=== PATIENT | female | born 1995 | race Two or more races ===

== ENCOUNTER 2025-01-10 05:54 | Inpatient (IN) | payer BC, OTHER, SELFPAY ==
--- OUTSIDE RECORDS SUMMARY | 2025-01-09 15:28 | XMS_ITS | Encounter Summary ---
Author Organization [facility] Address 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 Name Role Phone Unavailable Primary Care Provider Unavailabl e Reason for Referral * Radiology Services (Routine) - Closed Specialty Diagnoses / Procedures Referred By Contac t Referred To Contact Diagnoses Type 2 diabetes mellitus complicating , antepartum Procedures US OB LIMITED + NST MS NONSTRESS TEST CHG US UTERUS LIMITED 1/> FETUSES Megan Allan MD [address], [place] [address] Phone: tel: fax: [facility] Maternal and Ground Floor S [facility] [address] [place] [address] Phone: tel: fax: Referral ID Status Reason Start Date Expiration Date Visits Re quested Visits Authorized [id number] Closed 11/27/2024 12/28/2025 1 1 Reason for Visit * Radiology Services (Routine) - Closed Specialty Diagnoses / Procedures Referred By Contac t Referred To Contact Diagnoses Type 2 diabetes mellitus complicating , antepartum Procedures US OB LIMITED + NST MS NONSTRESS TEST CHG US UTERUS LIMITED 1/> FETUSES Megan Allan MD [address], [place] [address] Phone: tel: fax: [facility] [address] [address] [place] [address] Phone: tel: fax: Referral ID Status Reason Start Date Expiration Date Visits Re quested Visits Authorized [id number] Closed 11/27/2024 12/28/2025 1 1 Encounter Details Date Type Department Care Team (Latest Contact Info) Description 01/09/2025 3:28 PM CDT - 01/09/2025 11:59 PM CDT Hospital Encounter [facility] [address] [place] [address] [place] [address] Megan Allan MD [address] [facility] [address] [place] [address] Arrived Discharge Disposition: Home or Self Care Social History Tobacco Use Types Packs/Day Years Used Date Smoking Tobacco: Never Estimated Date of Delivery Comme nts Yes 01/29/2025 Based on Other B asis Sex and Gender Information Value Date Recorded Sex Assigned at Not on file Legal Sex Female 8:09 AM CDT Gender Identity Not on file Sexual Orientation Not on file documented as of this encounter Medications at Time of Discharge insulin lispro (HumaLOG KwikPen Insulin) 100 unit/mL pen syringeIndicatio ns:Pre-existing type 2 diabetes mellitus during in third trimester Inject 44 Units by subcutaneous injection daily before breakfast AND 80 Units daily before lunch AND 102 Units daily before supper. 60 mL 2 01/09/2025 insulin glargine U-300 conc (Toujeo Max U-300 SoloStar) 300 unit/mL (3 mL) Insulin PenIndications:P re-existing type 2 diabetes mellitus during in third trimester Inject 120 Units by subcutaneous injection daily at bedtime. 12 mL 2 01/09/2025 metFORMIN (GLUCOPHAGE XR) 500 mg Extended Release 24 hour tabletIndication s:Pre-existing type 2 diabetes mellitus during in third trimester Take 1 Tablet (500 mg) by mouth 2 times daily with meals. Increase to 2 tabs po BID in 3-5 days 120 Tablet 3 11/06/2024 Insulin [place], Disposable, (BD Christina 2nd Gen Pen Needle) 32 gauge x 5/32 NeedleIndication s:Pre-existing type 2 diabetes mellitus during , antepartum Use 4 pen needles per day with insulin injection 200 Each 6 08/30/2024 vit/iron fum/folic ac ( 1+1 ORAL) aspirin (ECOTRIN EC) 81 mg Tablet, Delayed Release (E.C.)Indication s:Supervision of high risk in second trimester,Diabet es mellitus affecting in second trimester,Other obesity affecting in second trimester Take 2 Tablets (162 mg) by mouth daily. 60 Tablet 6 08/16/2024 Dexcom G7 Sensor DeviceIndication s:Pre-existing type 2 diabetes mellitus during , antepartum Change sensor every 10 days as directed 3 Each 9 07/29/2024 documented as of this encounter Plan of Treatment Upcoming Encounters Date Type Department Care Team (Late st Contact Info) Description 01/13/2025 2:45 PM CDT Appointment [facility] [address] [place] [address] Megan Allan MD [address], [place] [address] 01/16/2025 3:30 PM CDT Appointment [facility] [address] [place] [phone] Megan Allan MD [address], [place] [address] 01/20/2025 3:30 PM CDT Appointment [facility] [address] [address] [place] [phone] Megan Allan MD [address], [place] [address] 01/23/2025 2:45 PM CDT Appointment [facility] [address] [place] [address] [place] [address] Isha Reeder NP [address] [place] [address] 01/23/2025 3:30 PM CDT Hospital Encounter [facility] [address] [place] [address] Megan Allan MD [address] [place] [facility] [place] [address] documented as of this encounter Procedures Procedure Name Priority Date/Time Associated Diagnosis Comments US OB LIMITED + NST Routine 01/09/2025 4:40 PM CDT Type 2 diabetes mellitus complicating , antepartum documented in this encounter Results * US OB LIMITED + NST (01/09/2025 4:40 PM CDT) Anatomical Region Laterality Modality Pelvis Ultrasound 01/09/2025 3:48 PM CDT Narrative 01/09/2025 4:44 PM CDT MODIFIED [facility] STUDY ----- Pat. Name: DEBORAH MARTIN Study Date: 01/09/2025 3:48pm Pat. NO: [id number] Referring MD: LUCIANO FRANCISCO MD Site: [facility] Continuing Education Specialist: : 1995 Age: 29 ----- INDICATION ----- Maternal Obesity (BMI>40) Complicating Pre-existing Type 2 Diabetes Mellitus CODING ----- Diagnoses Z3A.37: Weeks of gestation O99.213: Obesity complicating O24.113: Pre-existing type 2 diabetes mellitus, in Procedures 95977: NST/ monitoring 96145: Limited 1 or more - MALI, FHR, position (modifier 59 for MBPP) HISTORY ----- OB History 1 MATERNAL ASSESSMENT ----- Physical Exam Blood pressure 129/56 mmHg. Heart rate 104 bpm METHOD ----- EFM, Transabdominal ultrasound examination. View: Good view ----- Solares . Number of fetuses: 1 DATING ----- GA by prior assessment 37 w + 1 d GEORGE by prior assessment: 01/29/2025 Method of dating: Restore dating from previous exam Assigned: based on stated GEORGE, selected on 12/23/2024 Assigned GA 37 w + 1 d Assigned GEORGE: 01/29/2025 GENERAL EVALUATION ----- Cardiac activity present. movements: visualized. Presentation: cephalic NON STRESS TEST ----- NST interpretation: reactive. Test duration 45 min. Baseline FHR 120 bpm. Baseline variability: moderate. Accelerations: Present. Decelerations: absent. Uterine activity: present, irritability AMNIOTIC FLUID ASSESSMENT ----- Amount of AF: normal amount MVP 6.9 cm. MALI 13.1 cm. Q1 6.9 cm, Q2 0.0 cm, Q3 2.4 cm, Q4 3.8 cm COMMENT ----- Nurses Notes: Patient reports positive movement and no bleeding, or leaking of fluid. Pt. reports irregular ctx. MIL scheduled tomorrow. IMPRESSION ----- DEBORAH is here for follow up testing for T2DM and BMI. 1. Solares intrauterine with a gestational age of 37w 1d, based on the reported clinical dates. 2. cephalic presentation. 3. Amniotic fluid volume is normal for gestational age (DVP: 6.9 cm MALI: 13.1 cm). 4. NST reactive and reassuring for gestational age. Recommendations: - Induction scheduled for 01/10/25. No further testing indicated. Thank you for allowing us to participate in the care of this patient. Procedure Note Albina Brito MD - 01/09/2025 MODIFIED BPP STUDY ----- Pat. Name:DEBORAH MARTINChucho Date:01/09/2025 3:48pm Pat. NO: [id number] MD:LUCIANO FRANCISCO [facility]1995Age:29 ----- INDICATION ----- Maternal Obesity (BMI>40) Complicating Pre-existing Type 2 Diabetes Mellitus CODING ----- Diagnoses Z3A.37: Weeks of gestation O99.213: Obesity complicating O24.113: Pre-existing type 2 diabetes mellitus, inpregnancy Procedures 24123: NST/ monitoring 54403: Limited 1 or more - MALI, FHR, position(modifier 59 for MBPP) HISTORY ----- OB History 1 MATERNAL ASSESSMENT ----- Physical Exam Blood pressure 129/56 mmHg. Heart rate 104 bpm METHOD ----- EFM, Transabdominal ultrasound examination. View: Good view ----- Solares . Number of fetuses: 1 DATING ----- GA by prior [id number] w + 1 d GEORGE by prior assessment:01/29/2025 Method of dating:Restore dating from previous exam Assigned:based on stated GEORGE, selected on 12/23/2024 Assigned GA37 w + 1 d Assigned GEORGE:01/29/2025 GENERAL EVALUATION ----- Cardiac activity present. movements: visualized. Presentation:cephalic NON STRESS TEST ----- NST interpretation: reactive. Test duration 45 min. Baseline FHR 120 bpm.Baseline variability: moderate. Accelerations: Present. Decelerations: absent. Uterine activity: present, irritability AMNIOTIC FLUID ASSESSMENT ----- Amount of AF: normal amount MVP 6.9 cm. MALI 13.1 cm. Q1 6.9 cm, Q2 0.0 cm, Q3 2.4 cm, Q4 3.8 cm COMMENT ----- Nurses Notes: Patient reports positive movement and no bleeding, orleaking of fluid. Pt. reports irregular ctx. MIL scheduled tomorrow. IMPRESSION ----- DEBORAH is here for follow up testing for T2DM and BMI. 1. Solares intrauterine with a gestational age of 37w 1d,based on the reported clinical dates. 2. cephalic presentation. 3. Amniotic fluid volume is normal for gestational age (DVP: 6.9 cm MALI:13.1 cm). 4. NST reactive and reassuring for gestational age. Recommendations: - Induction scheduled for 01/10/25. No further testingindicated. Thank you for allowing us to participate in the care of this patient. us Megan Allan MD ORDERABLES Final Result documented in this encounter Visit Diagnoses Diagnosis Type 2 diabetes mellitus complicating , antepartum Diabetes mellitus, antepartum documented in this encounter
[2025-01-10] VITALS (225 sets, daily range): BP systolic 101–146; BP diastolic 49–104; PULSE 72–126; TEMP 36.1–36.4; O2SAT 96–100; BMI 47.2
--- OUTSIDE RECORDS SUMMARY | 2025-01-10 06:03 | XMS_ITS | Encounter Summary ---
Author Organization [facility] Address 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 Proof Press Operator Name Role Phone Unavailable Primary Care Provider Unavailabl e Reason for Visit * Reason Comments Diabetes Encounter Details Date Type Department Care Team (Late st Contact Info) Description 01/09/2025 Chart Note [facility] Maternal and Medicine - Medical [place] [facility] [address] [place] [address] Afia Harrington, RD [address] [place] [address] Diabetes Social History Tobacco Use Types Packs/Day Years Used Date Smoking Tobacco: Never Estimated Date of Delivery Comme nts Yes 01/29/2025 Based on Other B asis Sex and Gender Information Value Date Recorded Sex Assigned at Not on file Legal Sex Female 8:09 AM CDT Gender Identity Not on file Sexual Orientation Not on file documented as of this encounter Progress Notes * Afia Harrington, RD - 01/09/2025 11:40 AM CDT Images from the original note were not included. [facility] Maternal Medicine Diabetes Log Review Gestational age: 36w2d Type of DM: DM2 Current regimen: Toujeo 110U qHS Humalog / Metformin 1000 mg BID Comments: Logs reviewed. Fasting levels elevated the past 2 days. Pre and postprandials elevated with lunch and dinner. Breakfast well controlled. recommendation approved by SLOAN Pabon during visit on 12/27. Pt scheduled for IOL on 01/10. Next appointment with MFM: None d/t late GA POST - Recommend continuation of Metformin 1000mg BID. Toujeo 20U QHS. Follow up with PCP 1-2months post delivery for management. Recommendations: Increase Toujeo to 120u qHS (10% increase) Increase Humalog 44/80/102 (10% increases) Continue Metformin 1000 mg BID Review logs weekly and prn Afia Harrington RD [facility] Maternal Medicine Initial Visit: 08/16/24 Last Log Billed (either BP or BG) (CGM to bill monthly; others every 7 days): 12/05 (Cannot bill until 7 days after an initial consult with MD or MARIO) OK to bill: [facility] billing, MFM provider not to bill I spent 7 minutes reviewing this log and creating this therapy plan. MFM Nurse Practitioner Attestation: Log reviewed. Agree with above recommendations. No additional changes at this time. Isha Reeder NP [facility] Maternal Medicine documented in this encounter Plan of Treatment Upcoming Encounters Date Type Department Care Team (Late st Contact Info) Description 01/13/2025 2:45 PM CDT Appointment [facility] and Ground Floor [address] [address] [place] [address] Mgean Allan MD [address] [place] [address] 01/16/2025 3:30 PM CDT Appointment [facility] [address] [place] [address] Megan Allan MD [address] [place] [address] 01/20/2025 3:30 PM CDT Appointment [facility] [address] [place] [address] Megan Allan MD [address] [facility] [place] [address] 01/23/2025 2:45 PM CDT Appointment [facility] S [facility] [address] [place] [address] Isha Reeder NP [address] [facility] [place] [address] 01/23/2025 3:30 PM CDT Hospital Encounter [facility] [address] [place] [phone] Megan Allan MD [address] [facility] [place] [address] documented as of this encounter Visit Diagnoses Diagnosis Pre-existing type 2 diabetes mellitus during in third trimester- Primary documented in this encounter
--- OUTSIDE RECORDS SUMMARY | 2025-01-10 06:03 | XMS_ITS | Clinical Summary ---
Author Organization [facility] Address [address] [place] [address] Phone Care Team Providers Care Pharmacy Technician Assistant Name Role Phone Unavailable Primary Care Provider Unavailabl e Allergies No known active allergies Medications Dexcom G7 Sensor DeviceIndicat ions:Pre-exis ting type 2 diabetes mellitus during , antepartum Change sensor every 10 days as directed 3 Each 9 07/30/19 25 Active vit/iron fum/folic ac ( 1+1 ORAL) Active aspirin (ECOTRIN EC) 81 mg Tablet, Delayed Release (E.C.)Indicat ions:Supervis ion of high risk in second trimester,Radha betes mellitus affecting in second trimester,Oth er obesity affecting in second trimester Take 2 Tablets (162 mg) by mouth daily. 60 Tablet 6 08/17/19 25 Active Insulin Sealy, Disposable, (BD Christina 2nd Gen Pen Needle) 32 gauge x 5/32 NeedleIndicat ions:Pre-exis ting type 2 diabetes mellitus during , antepartum Use 4 pen needles per day with insulin injection 200 Each 6 08/31/19 25 Active metFORMIN (GLUCOPHAGE XR) 500 mg Extended Release 24 hour tabletIndicat ions:Pre-exis ting type 2 diabetes mellitus during in third trimester Take 1 Tablet (500 mg) by mouth 2 times daily with meals. Increase to 2 tabs po BID in 3-5 days 120 Tablet 3 11/07/19 25 Active insulin lispro (HumaLOG KwikPen Insulin) 100 unit/mL pen syringeIndica tions:Pre-exi sting type 2 diabetes mellitus during in third trimester Inject 44 Units by subcutaneous injection daily before breakfast AND 80 Units daily before lunch AND 102 Units daily before supper. 60 mL 2 01/10/20 25 Active insulin glargine U-300 conc (Toujeo Max U-300 SoloStar) 300 unit/mL (3 mL) Insulin PenIndication s:Pre-existin g type 2 diabetes mellitus during in third trimester Inject 120 Units by subcutaneous injection daily at bedtime. 12 mL 2 01/10/20 25 Active insulin glargine U-300 conc (Toujeo Max U-300 SoloStar) 300 unit/mL (3 mL) Insulin PenIndication s:Pre-existin g type 2 diabetes mellitus during in third trimester Inject 80 Units by subcutaneous injection daily at bedtime. 6 mL 4 11/15/19 25 025 Discontinued insulin lispro (HumaLOG KwikPen Insulin) 100 unit/mL pen syringeIndica tions:Pre-exi sting type 2 diabetes mellitus during in third trimester Inject 30 Units by subcutaneous injection daily before breakfast AND 54 Units daily before lunch AND 66 Units daily before supper. 45 mL 3 11/30/19 25 025 Discontinued insulin lispro (HumaLOG KwikPen Insulin) 100 unit/mL pen syringeIndica tions:Pre-exi sting type 2 diabetes mellitus during in third trimester Inject 28 Units by subcutaneous injection daily before breakfast AND 56 Units daily before lunch AND 68 Units daily before supper. 45 mL 12/13/19 25 025 Discontinued insulin glargine U-300 conc (Toujeo Max U-300 SoloStar) 300 unit/mL (3 mL) Insulin PenIndication s:Pre-existin g type 2 diabetes mellitus during in third trimester Inject 84 Units by subcutaneous injection daily at bedtime. 12 mL 2 12/21/19 25 025 Discontinued(R eorder) insulin lispro (HumaLOG KwikPen Insulin) 100 unit/mL pen syringeIndica tions:Pre-exi sting type 2 diabetes mellitus during in third trimester Inject 34 Units by subcutaneous injection daily before breakfast AND 60 Units daily before lunch AND 78 Units daily before supper. 60 mL 2 12/21/19 25 025 Discontinued(R eorder) insulin lispro (HumaLOG KwikPen Insulin) 100 unit/mL pen syringeIndica tions:Pre-exi sting type 2 diabetes mellitus during in third trimester Inject 40 Units by subcutaneous injection daily before breakfast AND 66 Units daily before lunch AND 86 Units daily before supper. 60 mL 2 12/28/19 25 025 Discontinued insulin glargine U-300 conc (Toujeo Max U-300 SoloStar) 300 unit/mL (3 mL) Insulin PenIndication s:Pre-existin g type 2 diabetes mellitus during in third trimester Inject 100 Units by subcutaneous injection daily at bedtime. 12 mL 2 12/28/19 25 025 Discontinued insulin lispro (HumaLOG KwikPen Insulin) 100 unit/mL pen syringeIndica tions:Pre-exi sting type 2 diabetes mellitus during in third trimester Inject 44 Units by subcutaneous injection daily before breakfast AND 72 Units daily before lunch AND 94 Units daily before supper. 60 mL 2 01/04/20 25 025 Discontinued Active Problems Problem Noted Date Diagnosed Date Class 3 obesity 12/27/2024 Pre-existing type 2 diabetes mellitus during in third trimester 11/06/2024 Pre-existing type 2 diabetes mellitus in in second trimester 09/23/2024 Diabetes mellitus 08/16/2024 Overview (08/16/2024): NPH at night - 26u Diabetes mellitus affecting in second trimester 08/16/2024 Obesity complicating 08/16/2024 Supervision of high risk in [facility] 07/31/2024 Estimated Date of Delivery Comme nts Yes 01/29/2025 Based on Other B asis Encounters Date Type Department Care Team Description 01/09/2025 3:28 PM CDT - 01/09/2025 11:59 PM CDT Hospital Encounter [facility] [address] [place] [address] [place] [address] Megan Allan MD Arrived Discharge Disposition: Home or Self Care 01/09/2025 Chart Note [facility] - [facility] [place] [facility] [address] [place] [phone] Diabetes 01/06/2025 3:26 PM CDT - 01/06/2025 11:59 PM CDT [facility] [place] [address] [place] [phone] Megan Allan MD Arrived Discharge Disposition: Home or Self Care 01/03/2025 Chart Note [facility] - [facility] [place] [facility] [address] [place] [address] Diabetes 01/03/2025 Chart Note [facility] - [facility] [place] [facility] [address] [place] [address] Isha Reeder NP Erroneous encounter-disregard 01/02/2025 3:41 PM CDT - 01/02/2025 11:59 PM CDT Hospital Encounter [facility] [address] [place] [address] [place] [phone] Megan Allan MD Discharge Disposition: Home or Self Care 12/31/2024 External Device Data STL ABSTRACTION Provider, Abstract 12/30/2024 3:40 PM CDT - 12/30/2024 11:59 PM CDT Hospital Encounter [facility] [address] [place] [address] [place] [address] Megan Allan MD Discharge Disposition: Home or Self Care 12/27/2024 9:30 AM CDT visit [facility] [address] [place] [phone] Isha Reeder NP Pre-existing type 2 diabetes mellitus during in third trimester (Primary Dx); Class 3 obesity; 35 weeks gestation of 12/27/2024 Chart Note [facility] [address] [place] [address] Isha Reeder NP Diabetes 12/26/2024 2:50 PM CDT - 12/26/2024 11:59 PM CDT [facility] [address] [place] [address] [place] [phone] Matt Landin MD Discharge Disposition: Home or Self Care 12/23/2024 2:50 PM CDT - 12/23/2024 11:59 PM CDT [facility] [address] [place] [address] [place] [phone] Megan Allan MD Discharge Disposition: Home or Self Care 12/23/2024 2:49 PM CDT - 12/23/2024 11:59 PM CDT [facility] [address] [place] [address] [place] [address] Matt Landin MD Discharge Disposition: Home or Self Care 12/20/2024 Chart Note [facility] - [facility] [place] [facility] [address] [place] [address] Isha Reeder NP Gestational Diabetes 12/19/2024 2:51 PM CDT - 12/19/2024 11:59 PM CDT [facility] [address] [place] [address] [place] [phone] Matt Landin MD Discharge Disposition: Home or Self Care 12/17/2024 2:08 PM CDT - 12/17/2024 11:59 PM CDT [facility] [address] [place] [address] [place] [address] Matt Landin MD Discharge Disposition: Home or Self Care 12/17/2024 External Device Data STL ABSTRACTION Provider, Abstract 12/12/2024 3:07 PM CDT - 12/12/2024 11:59 PM CDT [facility] [address] [place] [address] [place] [phone] Matt Landin MD Discharge Disposition: Home or Self Care 12/12/2024 Orders Only [facility] - [facility] [place] [facility] [address] [place] [phone] Albina Davenport MD Pre-existing type 2 diabetes mellitus during , antepartum (Primary Dx) 12/12/2024 Chart Note [facility] - [facility] [place] [facility] [address] [place] [address] Isha Reeder NP Diabetes 12/09/2024 3:05 PM CDT - 12/09/2024 11:59 PM CDT Hospital Encounter [facility] [address] [place] [address] [place] [address] Matt Landin MD Discharge Disposition: Home or Self Care 12/06/2024 9:00 AM CDT - 12/06/2024 11:59 PM CDT Hospital Encounter [facility] [address] [place] [address] [place] [address] Matt Landin MD Discharge Disposition: Home or Self Care 12/05/2024 Abstract [facility] - [facility] [place] [facility] [address] [place] [address] Arlene Haley, RD 12/05/2024 Chart Note [facility] - [facility] [place] [facility] [address] [place] [address] Matt Landin MD Diabetes 12/04/2024 External Device Data STL ABSTRACTION Provider, Abstract 11/29/2024 8:45 AM CDT visit [facility] [address] [place] [address] Isha Reeder NP Pre-existing type 2 diabetes mellitus during in third trimester (Primary Dx); Obesity affecting in third trimester, unspecified obesity type; 31 weeks gestation of 11/29/2024 Chart Note [facility] [address] [place] [address] Isha Reeder NP Diabetes 11/27/2024 3:00 PM CDT - 11/27/2024 11:59 PM CDT Hospital Encounter [facility] S [facility] [address] [place] [phone] Matt Landin MD Discharge Disposition: Home or Self Care 11/26/2024 External Device Data STL ABSTRACTION Provider, Abstract 11/21/2024 Chart Note [facility] [address] [place] [address] Agustin Wu MD Diabetes 11/14/2024 Chart Note [facility] - [facility] [place] [facility] [address] [place] [address] Isha Reeder NP Diabetes 11/06/2024 3:30 PM CDT visit [facility] [address] [place] [address] Isha Reeder NP Obesity affecting in third trimester, unspecified obesity type (Primary Dx); Pre-existing type 2 diabetes mellitus during in third trimester; 28 weeks gestation of 11/06/2024 Chart Note [facility] [address] [place] [address] Isha Reeder NP Diabetes 10/31/2024 Results Follow-Up [facility] [place] [facility] [address] [place] [address] Angeles Prieto NP CBC WITH DIFFERENTIAL, COMPREHENSIVE METABOLIC PANEL, TSH REFLEXIVE, PROTEIN , RANDOM URINE 10/30/2024 3:00 PM CDT - 10/30/2024 11:59 PM CDT Hospital Encounter [facility] S [facility] [address] [facility] [place] [phone] Harlan Brumfield MD Discharge Disposition: Home or Self Care 10/30/2024 External Device Data STL ABSTRACTION Provider, Abstract 10/30/2024 Chart Note [facility] - [facility] [place] [facility] [address] [place] [phone] Lawanda Gomez MD Diabetes 10/29/2024 External Device Data STL ABSTRACTION Provider, Abstract 10/24/2024 Chart Note [facility] [address] [place] [address] Isha Reeder NP Diabetes 10/17/2024 Abstract [facility] [place] [address] [place] [address] Matt Landin MD 10/17/2024 Chart Note [facility] [place] [facility] [address] [place] [phone] Harlan Brumfield MD Diabetes 10/15/2024 External Device Data STL ABSTRACTION Provider, Abstract from Last 3 Months Social History Tobacco Use Types Packs/Day Years Used Date Smoking Tobacco: Never Tobacco Cessation:Counseling Given: Not Answered Estimated Date of Delivery Comme nts Yes 01/29/2025 Based on Other B asis Sex and Gender Information Value Date Recorded Sex Assigned at Not on file Legal Sex Female 8:09 AM CDT Gender Identity Not on file Sexual Orientation Not on file Last Filed Vital Signs Vital Sign Reading Time Taken Comments Blood Pressure 104/74 12/27/2024 9:32 AM CDT Pulse 93 12/27/2024 9:32 AM CDT Temperature - - Respiratory Rate 16 07/30/2024 3:18 PM CDT Oxygen Saturation 96% 12/27/2024 9:32 AM CDT Inhaled Oxygen Concentration - - Weight 113.4 kg (250 lb) 12/27/2024 9:32 AM CDT Height 158.8 cm (5' 2.5) 12/27/2024 9:32 AM CDT Body Mass Index 45 12/27/2024 9:32 AM CDT Plan of Treatment Upcoming Encounters Date Type Department Care Team (Late st Contact Info) Description 01/13/2025 2:45 PM CDT [facility]ment [facility] [address] [place] [address] [address] [place] [phone] Megan Allan MD [address] [address] [address] 01/16/2025 3:30 PM CDT [facility]ment [facility] [address] [address] [place] [address] Megan Allan MD [address] [place] [address] 01/20/2025 3:30 PM CDT [facility]ointment [facility] [address] [place] [phone] Megan lAlan MD [address] [facility] [address] [address] 01/23/2025 2:45 PM CDT Appointment [facility] [address] [place] [address] Isha Reeder NP [address] [facility] [address] [phone] 01/23/2025 3:30 PM CDT [facility] [address] [place] [address] Megan Allan MD [address] [place] [address] Health Maintenance Due Date Last Done Comments DIABETES ANNUAL FOOT EXAM 10/21/2015 DIABETES ANNUAL RETINAL EXAM 10/21/2015 DIABETES MICROALBUMIN ANNUAL SCREEN 10/21/2015 LDL CHOLESTEROL ANNUAL 10/21/2015 DTAP/TDAP/TD VACCINES (1 - Tdap) 2016 HEPATITIS B VACCINES (1 of 3 - 19+ 3-dose series) 09/2016 HPV/Cotest (21-29) 2018 HPV VACCINES (1 - 3-dose SCDM series) 2024 DIABETES HBA1C Q 6 MONTHS 01/08/2025 07/08/2024 CERVICAL CANCER SCREENING 05/29/2027 PAP SMEAR 05/29/2027 05/29/2024 INFLUENZA VACCINE Completed 01/03/2025 RSV VACCINE (60+ or ) (No Doses Required) Comp leted Procedures Procedure Name Priority Date/Time Associated Diagnosis Comments OB LIMITED + NST Routine 01/09/2025 4 :40 PM CDT Type 2 diabetes mellitus complicating , antepartum OB LIMITED + NST Routine 01/08/2025 7 :24 AM CDT Body mass index (BMI) 40.0-44.9, adult (CMS/HCC) OB LIMITED + NST Routine 01/06/2025 4 :16 PM CDT Type 2 diabetes mellitus complicating , antepartum US OB LIMITED + NST Routine 01/02/2025 4 :38 PM CDT Type 2 diabetes mellitus complicating , antepartum US OB LIMITED + NST Routine 12/30/2024 4 :34 PM CDT Type 2 diabetes mellitus complicating , antepartum OB LIMITED + NST Routine 12/26/2024 4 :06 PM CDT Body mass index (BMI) 40.0-44.9, adult (CMS/HCC) US OB FOLLOW UP PER FETUS Routine 12/23/2024 3:59 PM CDT Type 2 diabetes mellitus complicating , antepartum US MONITORING NST Routine 12/23/2024 3:15 PM CDT Body mass index (BMI) 40.0-44.9, adult (CMS/HCC) US OB LIMITED + NST Routine 12/19/2024 3 :58 PM CDT Body mass index (BMI) 40.0-44.9, adult (CMS/HCC) US OB LIMITED + NST Routine 12/17/2024 3 :13 PM CDT Body mass index (BMI) 40.0-44.9, adult (CMS/HCC) US OB LIMITED + NST Routine 12/12/2024 4 :08 PM CDT Body mass index (BMI) 40.0-44.9, adult (CMS/HCC) US OB LIMITED + NST Routine 12/06/2024 9 :51 AM CDT Body mass index (BMI) 40.0-44.9, adult (CMS/HCC) US OB FOLLOW UP PER FETUS Routine 11/27/2024 3:28 PM CDT Body mass index (BMI) 40.0-44.9, adult (CMS/HCC) PROTEIN , RANDOM URINE Routine 10/30/2024 4:21 PM CDT TSH REFLEXIVE Routine 10/30/2024 4:21 PM CDT Pre-existing type 2 diabetes mellitus in in second trimester COMPREHENSIVE METABOLIC PANEL Routine 10/30/2024 4:21 PM CDT Pre-existing type 2 diabetes mellitus in in second trimester CBC WITH DIFFERENTIAL Routine 10/30/2024 4:21 PM CDT Pre-existing type 2 diabetes mellitus in in second trimester US OB FOLLOW UP PER FETUS Routine 10/30/2024 3:36 PM CDT DM (diabetes mellitus), type 2 (CMS/HCC) Morbid obesity with body mass index of 40.0-49.9 (CMS/HCC) from Last 3 Months Results * US OB LIMITED + NST (01/09/2025 4:40 PM CDT) Only the most recent of10 resultswithin the time period is included. Anatomical Region Laterality Modality Pelvis Ultrasound 01/09/2025 3:48 PM CDT Narrative 01/09/2025 4:44 PM CDT MODIFIED BP STUDY ----- Pat. Name: DEBORAH QUINTERO Study Date: 01/09/2025 3:48pm Pat. 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 Name:Lucila QUINTERO Date:01/09/2025 3:48pm Pat. NO: [id number] MD:LUCIANO FRANCISCO [facility]1995Age:29 ----- INDICATION ----- Maternal Obesity (BMI>40) Complicating Pre-existing Type 2 Diabetes Mellitus CODING ----- Diagnoses Z3A.37: Weeks of gestation O99.213: Obesity complicating O24.113: Pre-existing type 2 diabetes mellitus, inpregnancy Procedures 98965: NST/ monitoring 86002: Limited 1 or more - MALI, FHR, position(modifier 59 for MBPP) HISTORY ----- OB History 1 MATERNAL ASSESSMENT ----- Physical Exam Blood pressure 129/56 mmHg. Heart rate 104 bpm METHOD ----- EFM, Transabdominal ultrasound examination. View: Good view ----- [place] . Number of fetuses: 1 DATING ----- GA by prior [id number] w + 1 d GEORGE by prior [...] of this patient. us Megan Allan MD US ORDERABLES Final Result * US OB FOLLOW UP PER FETUS (12/23/2024 3:59 PM CDT) Only the most recent of3 resultswithin the time period is included. Anatomical Region Laterality Modality Pelvis Ultrasound 12/23/2024 3:38 PM CDT Narrative 12/23/2024 3:56 PM CDT STL FOLLOW UP ----- Pat. Name: DEBORAH QUINTERO Study Date: 12/23/2024 3:38pm Pat. NO: [id number] Referring MD: LUCIANO FRANCISCO MD Site: [facility] Mud Mixer Helper: Anastasiia Montoya RDMS : 1995 Age: 29 ----- INDICATION ----- Maternal Obesity (BMI>40) Complicating Pre-existing Type 2 Diabetes Mellitus Screening Follow-Up CODING ----- Diagnoses Z3A.34: Weeks of gestation Z36.2: Encounter for other screening follow-up O99.213: Obesity complicating O24.113: Pre-existing type 2 diabetes mellitus, in Procedures 25436: Ultrasound, uterus, real time with image documentation, follow up, transabdominal approach per fetus HISTORY ----- OB History 1 MATERNAL ASSESSMENT ----- Physical Exam Weight 111 kg. BMI 44.63 kg/m METHOD ----- Transabdominal ultrasound examination ----- [place] . Number of fetuses: 1 DATING ----- GA by prior assessment 34 w + 5 d GEORGE by prior assessment: 01/29/2025 Ultrasound examination on: 12/23/2024 GA by U/S based upon: AC, BPD, EFW, Femur, HC GA by U/S 35 w + 2 d GEORGE by U/S: 01/25/2025 Method of dating: Restore dating from previous exam Assigned: based on stated GEORGE, selected on 12/23/2024 Assigned GA 34 w + 5 d Assigned GEORGE: 01/29/2025 BIOMETRY ----- BPD 89.7 mm 36w 2d 89% Hadlock OFD 110.3 mm 36w 5d 87% Mando HC 317.5 mm 35w 5d 40% Hadlock AC 324.5 mm 36w 3d 92% Hadlock Femur 63.1 mm 32w 4d 5% Hadlock HC / AC 0.98 19% Nicolaides Weight Calculation: EFW 2,653 g 35w 2d 64% Hadlock EFW (lb,oz) 5 lb 14 oz EFW by Hadlock ([id number]) Head / Face / Neck Biometry: Stockbroking Dealer 4.6 mm Extremities / Bony Struc Biometry: FL / BPD 0.70 FL / HC 0.20 FL / AC 0.19 GENERAL EVALUATION ----- Cardiac activity present. FHR 137 bpm. movements: present. Presentation: cephalic Placenta: Placental site: posterior Umbilical cord: Cord vessels: 3 vessel cord. Amniotic fluid: Amount of AF: normal amount. MVP 6.3 cm. MALI 19.5 cm. Q1 6.3 cm, Q2 3.6 cm, Q3 5.9 cm, Q4 3.8 cm ANATOMY ----- Heart / Thorax Cardiac rhythm: previously seen. The following structures appear normal: Head / Neck Cranium. Lateral ventricles. Choroid plexus. Midline falx. Cavum septi pellucidi. Heart / Thorax Diaphragm. Abdomen Stomach. Kidneys. Bladder. GROWTH OVERVIEW ----- Exam date GA BPD (mm) HC (mm) AC (mm) FL (mm) HL (mm) EFW (g) 09/13/2024 20w 2d 45.3 25% 171.4 18% 164.5 81% 30.3 14% 31.9 67% 352 52% 10/09/2024 24w 0d 57.4 28% 213.8 15% 202.2 68% 40.6 14% 652 42% 10/30/2024 27w 0d 66.8 36% 247.2 18% 233.2 62% 47.1 8% 994 33% 11/27/2024 31w 0d 80.2 76% 287.3 29% 279.9 77% 56.2 7% 1,729 46% 12/23/2024 34w 5d 89.7 89% 317.5 40% 324.5 92% 63.1 5% 2,653 64% COMMENT ----- Patient's name and date of were verified by the customer service rep prior to the exam IMPRESSION ----- [place] @ 34w 5d complicated by BMI and T2DM. - The biometry is consistent with dates with the EFW at the 64% percentile. - Amniotic fluid indices are within normal limits. - Limited anatomy is unremarkable. The patient had an NST following the ultrasound; please see separate report for details. A follow up is scheduled in 4 weeks to follow growth. Thank you for allowing us to participate in the care of this patient. Procedure Note Megan Allan MD - 12/23/2024 [facility] FOLLOW UP ----- Pat. Name:Lucila QUINTERO Date:12/23/2024 3:38pm Pat. NO: [id number] :LUCIANO FRANCISCO MD [facility]Anastasiia Montoya RDMS :1995Age:29 ----- INDICATION ----- Maternal Obesity (BMI>40) Complicating Pre-existing Type 2 Diabetes Mellitus Screening Follow-Up CODING ----- Diagnoses Z3A.34: Weeks of gestation Z36.2: Encounter for other screeningfollow-up O99.213: Obesity complicating O24.113: Pre-existing type 2 diabetes mellitus, inpregnancy Procedures 70063: Ultrasound, uterus, real time withimage documentation, follow up, transabdominal approach per fetus HISTORY ----- OB History 1 MATERNAL ASSESSMENT ----- Physical Exam Weight 111 kg. BMI 44.63 kg/m METHOD ----- Transabdominal ultrasound examination ----- [place] . Number of fetuses: 1 DATING ----- GA by prior w + 5 d GEORGE by prior assessment:01/29/2025 Ultrasound examination on:12/23/2024 GA by U/S based upon:AC, BPD, EFW, Femur, HC GA by U/S35 w + 2 d GEORGE by U/S:01/25/2025 Method of dating:Restore dating from previous exam Assigned:based on stated GEORGE, selected on 12/23/2024 Assigned GA34 w + 5 d Assigned GEORGE:01/29/2025 BIOMETRY ----- BPD 89.7 mm 36w 2d 89%Hadlock OFD 110.3 mm 36w 5d 87%Mando HC 317.5 mm 35w 5d 40%Hadlock AC 324.5 mm 36w 3d 92%Hadlock Femur 63.1 mm 32w 4d 5%Hadlock HC / AC 0.98 19%Nicolaides Weight Calculation: EFW 2,653 g 35w 2d64% Hadlock EFW (lb,oz) 5 lb 14 oz EFW by Hadlock ([id number]) Head / Face / Neck Biometry: Stockbroking Dealer 4.6mm Extremities / Bony Struc Biometry: FL / BPD 0.70 FL / HC 0.20 FL / AC 0.19 GENERAL EVALUATION ----- Cardiac activity present. FHR 137 bpm. movements: present.Presentation: cephalic Placenta: Placental site: posterior Umbilical cord: Cord vessels: 3 vessel cord. Amniotic fluid: Amount of AF: normal amount. MVP 6.3 cm. MALI 19.5 cm. Q16.3 cm, Q2 3.6 cm, Q3 5.9 cm, Q4 3.8 cm ANATOMY ----- Heart / Thorax Cardiac rhythm: previously seen. The following structures appear normal: Head / Neck Cranium. Lateral ventricles. Choroid plexus.Midline falx. Cavum septi pellucidi. Heart / Thorax Diaphragm. Abdomen Stomach. Kidneys. Bladder. GROWTH OVERVIEW ----- Exam date GA BPD (mm) HC (mm) AC (mm) FL(mm) HL (mm) EFW (g) 09/13/2024 20w 2d 45.3 25% 171.4 18% 164.5 81%30.3 14% 31.9 67% 352 52% 10/09/2024 24w 0d 57.4 28% 213.8 15% 202.2 68%40.6 14% 652 42% 10/30/2024 27w 0d 66.8 36% 247.2 18% 233.2 62%47.1 8% 994 33% 11/27/2024 31w 0d 80.2 76% 287.3 29% 279.9 77%56.2 7% 1,729 46% 12/23/2024 34w 5d 89.7 89% 317.5 40% 324.5 92%63.1 5% 2,653 64% COMMENT ----- Patient's name and date of were verified by the customer service rep prior tothe exam IMPRESSION ----- [place] @ 34w 5d complicated by BMI and T2DM. - The biometry is consistent with dates with the EFW at the 64%percentile. - Amniotic fluid indices are within normal limits. - Limited anatomy is unremarkable. The patient had an NST following the ultrasound; please see separatereport for details. A follow up is scheduled in 4 weeks to follow growth. Thank you for allowing us to participate in the care of this patient. us Megan Allan MD US ORDERABLES Final Result * US MONITORING NST (12/23/2024 3:15 PM CDT) Anatomical Region Laterality Modality Ultrasound 12/23/2024 3:06 PM CDT Narrative 12/23/2024 3:17 PM CDT [facility] NST ----- Pat. Name: DEBORAH QUINTERO Study Date: 12/23/2024 3:06pm Pat. 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 Heart rate 98 bpm METHOD ----- EFM ----- [place] . Number of fetuses: 1 DATING ----- Method of dating: based on stated GEORGE GA by prior assessment 34 w + 5 d GEORGE by prior assessment: 01/29/2025 Assigned: based on stated GEORGE, selected on 12/23/2024 Assigned GA 34 w + 5 d Assigned GEORGE: 01/29/2025 NON STRESS TEST ----- NST interpretation: reactive. Test duration 20 min. Baseline FHR 130 bpm. Baseline variability: moderate. Accelerations: Present. Decelerations: Not present. Uterine activity: absent COMMENT ----- Nursing notes: Patient reports positive movement with no bleeding, leaking or kinga. US after NST. IMPRESSION ----- Reactive NST. Procedure Note Megan Allan MD - 12/23/2024 [facility] NST ----- Pat. Name:Lucila QUINTERO Date:12/23/2024 3:06pm Pat. NO: [id number] :LUCIANO FRANCISCO MD Site:[facility] Castro[facility]: :1995Age:29 ----- INDICATION ----- Maternal Obesity (BMI>40) Complicating Pre-existing Type 2 Diabetes Mellitus CODING ----- Diagnoses Z3A.34: Weeks of gestation O24.113: Pre-existing type 2 diabetes mellitus, inpregnancy O99.213: Obesity complicating Z36.2: Encounter for other screeningfollow-up Procedures 83227: NST/ monitoring MATERNAL ASSESSMENT ----- Physical Exam Blood pressure 128/68 mmHg. Heart rate 98 bpm METHOD ----- EFM ----- [place] . Number of fetuses: 1 DATING ----- Method of dating:based on stated GEORGE GA by prior [id number] w + 5 d GEORGE by prior assessment:01/29/2025 Assigned:based on stated GEORGE, selected on 12/23/2024 Assigned GA34 w + 5 d Assigned GEORGE:01/29/2025 NON STRESS TEST ----- NST interpretation: reactive. Test duration 20 min. Baseline FHR 130 bpm.Baseline variability: moderate. Accelerations: Present. Decelerations: Not present. Uterine activity: absent COMMENT ----- Nursing notes: Patient reports positive movement with no bleeding,leaking or kinga. US after NST. IMPRESSION ----- Reactive NST. Matt Landin MD ORDERABLES Final Resu lt * TSH REFLEXIVE (10/30/2024 4:21 PM CDT) Pathologist [facility] TSH 2.22 mIU/L [facility] Comment: Reference Range > or = 20 Years 0.40-4.50 Ranges First trimester 0.26-2.66 Second trimester 0.55-2.73 Third trimester 0.43-2.91 Test Performed at: [facility] [address] [place] [address] Jennifer Dumont Blood 10/30/2024 4:21 PM CDT 10/30/2024 4:25 PM CDT Isha Jadeelian [place] CHEMISTRY ORDERABLES Final Re sult [facility] [phone] [facility] [address] [phone] * (ABNORMAL) CBC WITH DIFFERENTIAL (10/30/2024 4:21 PM CDT) WBC 12.7(H) 3.8 - 10.8 Thousand/ uL [facility] RBC 4.38 3.80 - 5.10 Million/u L [facility] HEMOGLOBIN 12.6 11.7 - 15.5 g/dL [facility] HEMATOCRIT 39.2 35.0 - 45.0 % [facility] MCV 89.5 80.0 - 100.0 fL [facility] MCH 28.8 27.0 - 33.0 pg [facility] MCHC 32.1 32.0 - 36.0 g/dL [facility] Comment: For adults, a slight decrease in the calculated MCHC value (in the range of 30 to 32 g/dL) is most likely not clinically significant; however, it should be interpreted with caution in correlation with other red cell parameters and the patient's clinical condition. RDW 12.7 11.0 - 15.0 % [facility] PLATELETS 325 140 - 400 Thousand/ uL [facility] MPV 10.3 7.5 - 12.5 fL [facility] NEUTROPHIL ABSOLUTE 8,598(H) 1,500 - 7,800 cells/uL [facility] LYMPHOCYTE ABSOLUTE 3,010 850 - 3,900 cells/uL [facility] MONOCYTE ABSOLUTE 864 200 - 950 cells/uL [facility] EOSINOPHIL ABSOLUTE 191 15 - 500 cells/uL [facility] BASOPHILS ABSOLUTE 38 0 - 200 cells/uL [facility] NEUTROPHIL 67.7 % [facility] LYMPHOCYTES 23.7 % [facility] MONOCYTE 6.8 % [facility] EOSINOPHILS 1.5 % [facility] BASOPHILS 0.3 % [facility] Comment: Test Performed at: [facility] [address] [address] Jennifer Thi Vo Blood 10/30/2024 4:21 PM CDT 10/30/2024 4:25 PM CDT Isha Reeder RISK ADVISOR HEMATOLOGY ORDERABLES Final R esult Performing Organization Address City/[facility]/ZIP Code Phone Number [facility] [phone] [place] [address] [place] [phone] * PROTEIN , RANDOM URINE (10/30/2024 4:21 PM CDT) CREATININE, URINE 117 20 - 275 mg/dL [facility] PROTEIN/CREATININE RATIO, URINE 111 24 - 184 mg/g creat [facility] PROTEIN/CREATININE RATIO, URINE 0.111 0.024 - 0.184 mg/mg creat [facility] PROTEIN TOTAL, URINE 13 5 - 24 mg/dL [facility] Comment: Test Performed at: [facility] [address] [place] [address] TheresaSandhyatammy Thi Vo 10/30/2024 4:21 PM CDT 10/30/2024 4:25 PM CDT Isha Reeder RISK ADVISOR URINE ORDERABLES Final Result Performing Organization Address City/[facility] Code Phone Number [facility] [phone] [place] [address] [place] [address] * (ABNORMAL) COMPREHENSIVE METABOLIC PANEL (10/30/2024 4:21 PM CDT) GLUCOSE 84 65 - 99 mg/dL [facility] Comment: Fasting reference interval BUN 7 7 - 25 mg/dL [facility] CREATININE 0.46(L) 0.50 - 0.96 mg/dL [facility] GFR 134 > OR = 60 mL/min/1. 73m2 [facility] BUN/CREAT RATIO 15 6 - 22 (calc) [facility] SODIUM 135 135 - 146 mmol/L [facility] POTASSIUM 4.2 3.5 - 5.3 mmol/L [facility] CHLORIDE 106 98 - 110 mmol/L [facility] CO2 24 20 - 32 mmol/L [facility] CALCIUM 9.3 8.6 - 10.2 mg/dL [facility] TOTAL PROTEIN 6.3 6.1 - 8.1 g/dL [facility] ALBUMIN 3.5(L) 3.6 - 5.1 g/dL [facility] GLOBULIN 2.8 1.9 - 3.7 g/dL (calc) [facility] ALBUMIN/GLOBULIN RATIO 1.3 1.0 - 2.5 (calc) [facility] BILIRUBIN TOTAL 0.3 0.2 - 1.2 mg/dL [facility] ALKALINE PHOSPHATASE 69 31 - 125 U/L [facility] AST 11 10 - 30 U/L [facility] ALT 13 6 - 29 U/L [facility] Comment: Test Performed at: [place] [address] [place] [address] Jennifer [facility] Blood 10/30/2024 4:21 PM CDT 10/30/2024 4:25 PM CDT Isha Reeder NP CHEMISTRY ORDERABLES Final Re sult [facility] [phone] [place] [address] [address] [phone] from Last 3 Months Insurance [facility] MEDICAID [facility] [id number]
[2025-01-10 07:00] LABS: Hematocrit 36.3 % (37.0-47.0); Hemoglobin 12.1 g/dL (12.0-15.0); Immature Granulocyte Percent A 0.7 % (0-0.5); Lymphocytes Absolute Auto 3.34 K/mm3 (0.9-3.2); Mean Corpuscular HGB Conc 33.3 g/dl (32-36); Mean Corpuscular Hemoglobin 27.7 pg (26-34); Mean Corpuscular Volume 83.1 fl (80-100); Nucleated Red Blood Cells Absolute Auto 0.000 K/mm3 (0.0-0.012); Nucleated Red Blood Cells Perc 0.0 % (0.0-0.2); Platelet Count Result 312 k/mm3 (150-375); Red Blood Count 4.37 M/mm3 (4.2-5.4); White Blood Count 13.7 K/mm3 (4.5-10.0)
--- NOTE | 2025-01-10 07:49 | WPDOBADMIT ---
Obstetrics - Admit Note Admission Note: record reviewed. No pertinent additions to the history and/or any subsequent changes in the physical findings that are not consistent with the expected course of the were found. Additions to the history and/or subsequent changes in the physical findings follow. admit for IOL, GDMA-2 anticipate vaginal delivery
[2025-01-10] MEDS: INSULIN ASPART (*BKC) 100 UNITS/ML 44 UNITS SUB-Q (07:57)
--- NOTE | 2025-01-10 08:07 | LDADM ---
This patient, Fannie Martin, was admitted to Labor/Delivery/Recovery 103 on 01/10/25 at 05:54. Plans for labor, pain management and were discussed with patient. Patient/family oriented to hospital policies and general routines including ID bracelet, bed and alarms, visiting hours, pain management, procedures, bathroom and other care routines, personal items, smoking policy, room service/diet and guest tray routines, infant security routines, and visiting hours. Patient/Family are encouraged to report perceived risks to care and to ask questions if they do not understand what they are told or what they should do. See OBIX for further documentation.
[2025-01-10 08:27] LABS: Syphilis IgG/IgM Antibody Non-Reactive (Nonreactive)
[2025-01-10] MEDS: LACTATED RINGERS 1,000 ML 125 ML IV CONT ×3 (11:28→20:26)
--- NOTE | 2025-01-10 12:49 | PM.OBPNLAB ---
Pain Control Date/time seen: 01/10/25 12:49 Comments: FHR category 1 SVE /-2 soft. chung bulb placed pt shayne well
[2025-01-10] MEDS: OXYTOCIN 30 UNITS/NS 500 ML 30 UNITS/500 ML BAG IV CONT (13:38)
[2025-01-10] MEDS: fentaNYL CITRATE INJ (*CRX) 100 MCG/2 ML VIAL 50 MCG IV PUSH (15:42)
--- NOTE | 2025-01-10 18:44 | PM.OBPNLAB ---
Pain Control Date/time seen: 01/10/25 18:44 Comments: SVE 3.5/60/-2 AROM large amount of clear, odorless fluid, IUPC placed discussed insulin with plan metformin at will hold long acting insulin for now GDM diet being followed during labor FHR category 1 contractions q 2-3 minutes
--- NOTE | 2025-01-10 19:49 | WPDANESEPPF ---
Anes - Initial Pre Proc Eval Date/Time: 01/10/25 19:49 Surgeon: Carlos Lewis MD Pre Op Diagnosis: IOL Patient Data Age: 29 Gender: F Height: 1.57 m Weight: 117 kg Last Vital Signs Temp 36.1 C L 01/10/25 17:51 Pulse 95 01/10/25 19:48 BP 120/65 01/10/25 19:48 Pulse Ox 98 01/10/25 19:44 O2 Del Method Room Air 01/10/25 08:06 Allergies Allergy/AdvReac Type Severity Reaction Status Date / Time No Known Allergies Allergy Mild Verified 12/28/24 15:45 Home Medications ?Medication ?Instructions ?Recorded ?Confirmed ?Type aspirin 81 mg capsule 162 mg PO DAILY 12/28/24 12/28/24 History insulin glargine U-300 conc 300 100 unit subcut HS 12/28/24 12/28/24 History unit/mL (1.5 mL) subcutaneous pen insulin lispro 100 unit/mL 1 sliding scale dose subcut 12/28/24 12/28/24 History subcutaneous pen (Humalog KwikPen USEASDIRECTD (U-100) Insulin) metformin 1,000 mg tablet 1,000 mg PO BID 12/28/24 12/28/24 History vit no.95-ferrous 1 tablet PO DAILY 12/28/24 12/28/24 History fumarate 28 mg-folic acid 800 mcg tablet () Laboratory Tests 01/10/25 01/10/25 01/10/25 06:25 07:01 09:12 WBC 13.7 H K/mm3 (4.5-10.0) RBC 4.37 M/mm3 (4.2-5.4) Hgb 12.1 g/dL (12.0-15.0) Hct 36.3 L % (37.0-47.0) MCV 83.1 fl (80-100) MCH 27.7 pg (26-34) MCHC 33.3 g/dl (32-36) RDW 14.1 % (11.5-14.5) Plt Count 312 k/mm3 (150-375) MPV 10.3 fl (7.4-10.4) Immature Gran % (Auto) 0.7 H % (0-0.5) Neut % (Auto) 67.0 % (45.5-73.1) Lymph % (Auto) 24.4 % (18.3-44.2) [place] % (Auto) 6.4 % (2.6-8.5) Eos % (Auto) 1.0 % (0-4.4) Baso % (Auto) 0.5 % (0.2-1.2) Lymph # (Auto) 3.34 H K/mm3 (0.9-3.2) [place] # (Auto) 0.9 H K/mm3 (0.1-0.6) Eos # (Auto) 0.1 K/mm3 (0-0.3) Baso # (Auto) 0.1 K/mm3 (0.0-0.1) Abs Immat Gran (auto) 0.09 H K/mm3 (0.00-0.031) Absolute Neuts (auto) 9.2 H K/mm3 (1.3-6.7) Absolute Nucleated RBC 0.000 K/mm3 (0.0-0.012) Nucleated RBC % 0.0 % (0.0-0.2) POC Capillary Glucose 93 mg/dl 120 H mg/dl (65-105) (65-105) Syphilis IgG/IgM Ab Non-reactive (Nonreactive) Blood Type O Positive Antibody Screen Negative 01/10/25 01/10/25 01/10/25 12:00 12:22 12:49 WBC RBC Hgb Hct MCV MCH MCHC RDW Plt Count MPV Immature Gran % (Auto) Neut % (Auto) Lymph % (Auto) [place] % (Auto) Eos % (Auto) Baso % (Auto) Lymph # (Auto) [place] # (Auto) Eos # (Auto) Baso # (Auto) Abs Immat Gran (auto) Absolute Neuts (auto) Absolute Nucleated RBC Nucleated RBC % POC Capillary Glucose 53 L* mg/dl 69 mg/dl 74 mg/dl (65-105) (65-105) (65-105) Syphilis IgG/IgM Ab Blood Type Antibody Screen 01/10/25 01/10/25 01/10/25 14:05 15:59 17:49 WBC RBC Hgb Hct MCV MCH MCHC RDW Plt Count MPV Immature Gran % (Auto) Neut % (Auto) Lymph % (Auto) [place] % (Auto) Eos % (Auto) Baso % (Auto) Lymph # (Auto) [place] # (Auto) Eos # (Auto) Baso # (Auto) Abs Immat Gran (auto) Absolute Neuts (auto) Absolute Nucleated RBC Nucleated RBC % POC Capillary Glucose 76 mg/dl 70 mg/dl 124 H mg/dl (65-105) (65-105) (65-105) Syphilis IgG/IgM Ab Blood Type Antibody Screen 01/10/25 19:03 WBC RBC Hgb Hct MCV MCH MCHC RDW Plt Count MPV Immature Gran % (Auto) Neut % (Auto) Lymph % (Auto) [place] % (Auto) Eos % (Auto) Baso % (Auto) Lymph # (Auto) [place] # (Auto) Eos # (Auto) Baso # (Auto) Abs Immat Gran (auto) Absolute Neuts (auto) Absolute Nucleated RBC Nucleated RBC % POC Capillary Glucose 121 H mg/dl (65-105) Syphilis IgG/IgM Ab Blood Type Antibody Screen Patient hx anesthesia problems: none Family hx anesthesia problems: none Results Review: All pre-operative results and documents have been reviewed as part of the pre-operative evaluation. [facility] Family History Family History Mother Hypertension Preeclampsia Other Breast cancer Diabetes mellitus Social History Social History Smoking status: Never smoker Substance use: never Lack of Transportation: No Lack of Food: Never True Current Housing: I Have Housing Concerned About Future Housing: No Difficulty Paying Gas/Electric Bills: No Difficulty Paying for Meds: No Currently Unemployed: No Education: High School Diploma/GED Difficulty w/ Childcare or Family Care: No Spiritual care concerns: No Anes - Eval Final PreProcedure Day of Procedure 01/10/25 19:49 Patient weight: morbidly obese Neurological: alert and oriented ASA classification: III Emergent: no Anesthetic plan: proceed Anesthesia type and monitoring: regional epidural and standard monitoring Results Review: All pre-operative results and documents have been reviewed as part of the pre-operative evaluation. Informed Consent: The patient's anesthetic plan and its attendant risks and benefits were discussed with the patient/family/POA. Questions were solicited and answers provided to the satisfaction of the patient/family/POA.
[2025-01-11] VITALS (142 sets, daily range): BP systolic 77–135; BP diastolic 44–94; PULSE 75–116; RESP 12–20; TEMP 36.3–37.3; O2SAT 94–100
[2025-01-11] MEDS: OXYTOCIN 30 UNITS/NS 500 ML 30 UNITS/500 ML BAG IV CONT (01:00)
[2025-01-11] MEDS: LACTATED RINGERS 1,000 ML 125 ML IV CONT (03:48)
--- NOTE | 2025-01-11 06:55 | PM.IMHP ---
H&P: HPI History of Present Illness Date/Time: 01/11/25 06:55 Chief Complaint: Patient is a 29 y.o. at 37w3d who was admitted for IOL per [facility] recommendation for uncontrolled type 2 diabetes mellitus. is also complicated by obesity. Pt has been seeing M weekly for monitoring and ultrasounds. Blood sugars have been managed by [facility] as well. Pt received morning insulin on 01/10, received metformin in the evening on 01/10 with insulin withheld. With controlled diet, blood sugars have been maintained throughout the course of her stay. Current heart tracing Category 1, with contractions every 2-4 minutes. Cerivx has remain unchanged throughout the night and is now swollen. Review of Systems Review of Systems: All systems reviewed & are unremarkable except as noted in HPI and below PMFSH Family History Family History Mother Hypertension Preeclampsia Other Breast cancer Diabetes mellitus Social History Social History Smoking status: Never smoker Substance use: never Lack of Transportation: No Lack of Food: Never True Current Housing: I Have Housing Concerned About Future Housing: No Difficulty Paying Gas/Electric Bills: No Difficulty Paying for Meds: No Currently Unemployed: No Education: High School Diploma/GED Difficulty w/ Childcare or Family Care: No Spiritual care concerns: No Meds Home Medications and Allergies Home Medications ?Medication ?Instructions ?Recorded ?Confirmed ?Type aspirin 81 mg capsule 162 mg PO DAILY 12/28/24 01/10/25 History insulin glargine U-300 conc 300 100 unit subcut HS 12/28/24 01/10/25 History unit/mL (1.5 mL) subcutaneous pen insulin lispro 100 unit/mL 1 sliding scale dose subcut 12/28/24 12/28/24 History subcutaneous pen (Humalog KwikPen USEASDIRECTD (U-100) Insulin) metformin 1,000 mg tablet 1,000 mg PO BID 12/28/24 01/10/25 History vit no.95-ferrous 1 tablet PO DAILY 12/28/24 01/10/25 History fumarate 28 mg-folic acid 800 mcg tablet () Allergies Allergy/AdvReac Type Severity Reaction Status Date / Time No Known Allergies Allergy Mild Verified 01/10/25 21:18 Vital Signs Vital Signs - 24 hr 01/10/25 07:00 01/10/25 07:15 01/10/25 07:30 Temperature Pulse Rate 95 92 92 Blood Pressure 118/64 114/73 113/74 Pulse Oximetry Oxygen Delivery 01/10/25 07:45 01/10/25 08:00 01/10/25 08:06 Temperature Pulse Rate 90 86 Blood Pressure 109/69 113/73 Pulse Oximetry Oxygen Delivery Room Air 01/10/25 08:15 01/10/25 08:30 01/10/25 08:45 Temperature Pulse Rate 93 84 90 Blood Pressure 124/81 119/71 123/68 Pulse Oximetry Oxygen Delivery 01/10/25 09:00 01/10/25 09:15 01/10/25 09:30 Temperature 36.1 C L Pulse Rate 90 87 84 Blood Pressure 126/63 123/66 104/59 L Pulse Oximetry Oxygen Delivery 01/10/25 09:45 01/10/25 09:48 01/10/25 10:00 Temperature Pulse Rate 92 86 103 H Blood Pressure 113/49 L 102/61 103/64 Pulse Oximetry Oxygen Delivery 01/10/25 10:15 01/10/25 10:26 01/10/25 10:30 Temperature Pulse Rate 99 90 Blood Pressure 101/62 102/56 L Pulse Oximetry 97 Oxygen Delivery 01/10/25 10:31 01/10/25 10:36 01/10/25 10:41 Temperature Pulse Rate Blood Pressure Pulse Oximetry 97 97 97 Oxygen Delivery 01/10/25 10:45 01/10/25 10:46 01/10/25 10:51 Temperature Pulse Rate 88 Blood Pressure 105/58 L Pulse Oximetry 97 97 Oxygen Delivery 01/10/25 10:56 01/10/25 11:00 01/10/25 11:01 Temperature Pulse Rate 90 Blood Pressure 113/62 Pulse Oximetry 98 98 Oxygen Delivery 01/10/25 11:06 01/10/25 11:11 01/10/25 11:15 Temperature Pulse Rate 93 Blood Pressure 123/70 Pulse Oximetry 96 97 Oxygen Delivery 01/10/25 11:16 01/10/25 11:21 01/10/25 11:26 Temperature Pulse Rate Blood Pressure Pulse Oximetry 96 96 97 Oxygen Delivery 01/10/25 11:34 01/10/25 11:39 01/10/25 11:44 Temperature Pulse Rate Blood Pressure Pulse Oximetry 98 99 100 Oxygen Delivery 01/10/25 11:45 01/10/25 11:49 01/10/25 11:54 Temperature Pulse Rate 90 Blood Pressure 120/70 Pulse Oximetry 100 100 Oxygen Delivery 01/10/25 11:59 01/10/25 12:04 01/10/25 12:09 Temperature Pulse Rate Blood Pressure Pulse Oximetry 100 100 99 Oxygen Delivery 01/10/25 12:14 01/10/25 12:15 01/10/25 12:19 Temperature Pulse Rate 89 Blood Pressure 119/76 Pulse Oximetry 99 99 Oxygen Delivery 01/10/25 12:24 01/10/25 12:29 01/10/25 12:30 Temperature Pulse Rate 91 Blood Pressure 122/60 Pulse Oximetry 100 99 Oxygen Delivery 01/10/25 12:34 01/10/25 12:45 01/10/25 12:47 Temperature 36.3 C L Pulse Rate Blood Pressure Pulse Oximetry 99 99 Oxygen Delivery 01/10/25 12:52 01/10/25 12:57 01/10/25 13:02 Temperature Pulse Rate Blood Pressure Pulse Oximetry 98 98 99 Oxygen Delivery 01/10/25 13:07 01/10/25 13:12 01/10/25 13:17 Temperature Pulse Rate Blood Pressure Pulse Oximetry 98 99 99 Oxygen Delivery 01/10/25 13:22 01/10/25 13:27 01/10/25 13:32 Temperature Pulse Rate Blood Pressure Pulse Oximetry 99 99 99 Oxygen Delivery 01/10/25 13:37 01/10/25 13:42 01/10/25 13:47 Temperature Pulse Rate Blood Pressure Pulse Oximetry 99 99 98 Oxygen Delivery 01/10/25 13:52 01/10/25 13:57 01/10/25 14:02 Temperature Pulse Rate Blood Pressure Pulse Oximetry 98 99 99 Oxygen Delivery 01/10/25 14:07 01/10/25 14:12 01/10/25 14:17 Temperature Pulse Rate Blood Pressure Pulse Oximetry 100 99 98 Oxygen Delivery 01/10/25 14:22 01/10/25 14:27 01/10/25 14:30 Temperature Pulse Rate 88 Blood Pressure 145/76 H Pulse Oximetry 99 99 Oxygen Delivery 01/10/25 14:32 01/10/25 14:37 01/10/25 14:42 Temperature Pulse Rate Blood Pressure Pulse Oximetry 99 99 99 Oxygen Delivery 01/10/25 14:45 01/10/25 14:47 01/10/25 15:13 Temperature Pulse Rate 84 Blood Pressure 123/72 Pulse Oximetry 99 98 Oxygen Delivery 01/10/25 15:16 01/10/25 15:18 01/10/25 15:23 Temperature Pulse Rate 78 Blood Pressure 135/76 Pulse Oximetry 99 98 Oxygen Delivery 01/10/25 15:28 01/10/25 15:30 01/10/25 15:33 Temperature Pulse Rate 83 Blood Pressure 124/82 Pulse Oximetry 97 99 Oxygen Delivery 01/10/25 15:38 01/10/25 15:43 01/10/25 15:48 Temperature Pulse Rate Blood Pressure Pulse Oximetry 98 99 98 Oxygen Delivery 01/10/25 15:53 01/10/25 15:58 01/10/25 16:00 Temperature Pulse Rate 76 Blood Pressure 128/74 Pulse Oximetry 96 97 Oxygen Delivery 01/10/25 16:03 01/10/25 16:08 01/10/25 16:13 Temperature Pulse Rate Blood Pressure Pulse Oximetry 98 97 98 Oxygen Delivery 01/10/25 16:15 01/10/25 16:18 01/10/25 16:23 Temperature Pulse Rate 79 Blood Pressure 119/64 Pulse Oximetry 99 99 Oxygen Delivery 01/10/25 16:28 01/10/25 16:30 01/10/25 16:33 Temperature Pulse Rate 79 Blood Pressure 107/63 Pulse Oximetry 99 97 Oxygen Delivery 01/10/25 16:38 01/10/25 16:43 01/10/25 16:47 Temperature Pulse Rate 85 Blood Pressure 120/57 L Pulse Oximetry 98 98 Oxygen Delivery 01/10/25 16:48 01/10/25 16:53 01/10/25 16:58 Temperature Pulse Rate Blood Pressure Pulse Oximetry 98 96 98 Oxygen Delivery 01/10/25 17:00 01/10/25 17:03 01/10/25 17:08 Temperature Pulse Rate 83 Blood Pressure 124/68 Pulse Oximetry 97 98 Oxygen Delivery 01/10/25 17:13 01/10/25 17:15 01/10/25 17:18 Temperature Pulse Rate 74 Blood Pressure 128/69 Pulse Oximetry 98 96 Oxygen Delivery 01/10/25 17:23 01/10/25 17:38 01/10/25 17:43 Temperature Pulse Rate Blood Pressure Pulse Oximetry 100 98 100 Oxygen Delivery 01/10/25 17:45 01/10/25 17:48 01/10/25 17:51 Temperature 36.1 C L Pulse Rate 84 Blood Pressure 138/67 Pulse Oximetry 98 Oxygen Delivery 01/10/25 17:53 01/10/25 17:58 01/10/25 18:00 Temperature Pulse Rate 87 Blood Pressure 113/95 H Pulse Oximetry 100 99 Oxygen Delivery 01/10/25 18:03 01/10/25 18:08 01/10/25 18:13 Temperature Pulse Rate Blood Pressure Pulse Oximetry 99 99 99 Oxygen Delivery 01/10/25 18:15 01/10/25 18:18 01/10/25 18:23 Temperature Pulse Rate 85 Blood Pressure 122/74 Pulse Oximetry 99 99 Oxygen Delivery 01/10/25 18:28 01/10/25 18:30 01/10/25 18:33 Temperature Pulse Rate 87 Blood Pressure 115/64 Pulse Oximetry 99 100 Oxygen Delivery 01/10/25 18:38 01/10/25 18:43 01/10/25 18:45 Temperature Pulse Rate 89 Blood Pressure 123/66 Pulse Oximetry 100 100 Oxygen Delivery 01/10/25 18:48 01/10/25 19:00 01/10/25 19:20 Temperature 36.3 C L Pulse Rate Blood Pressure Pulse Oximetry 99 98 Oxygen Delivery 01/10/25 19:25 01/10/25 19:29 01/10/25 19:30 Temperature Pulse Rate 113 H 89 Blood Pressure 139/80 135/89 Pulse Oximetry 99 100 Oxygen Delivery 01/10/25 19:33 01/10/25 19:35 01/10/25 19:36 Temperature Pulse Rate 110 H 104 H Blood Pressure 137/104 H 146/83 H Pulse Oximetry 98 Oxygen Delivery 01/10/25 19:38 01/10/25 19:39 01/10/25 19:40 Temperature Pulse Rate 86 104 H Blood Pressure 129/58 L 120/67 Pulse Oximetry 99 Oxygen Delivery 01/10/25 19:43 01/10/25 19:44 01/10/25 19:46 Temperature Pulse Rate 94 87 Blood Pressure 118/70 127/54 L Pulse Oximetry 98 Oxygen Delivery 01/10/25 19:48 01/10/25 19:49 01/10/25 19:50 Temperature Pulse Rate 95 94 Blood Pressure 120/65 117/61 Pulse Oximetry 99 Oxygen Delivery 01/10/25 19:53 01/10/25 19:54 01/10/25 19:55 Temperature Pulse Rate 93 85 Blood Pressure 119/62 117/64 Pulse Oximetry 99 Oxygen Delivery 01/10/25 19:58 01/10/25 19:59 01/10/25 20:00 Temperature Pulse Rate 103 H 117 H Blood Pressure 121/60 117/77 Pulse Oximetry 99 Oxygen Delivery 01/10/25 20:03 01/10/25 20:04 01/10/25 20:05 Temperature Pulse Rate 126 H 101 H Blood Pressure 107/83 107/68 Pulse Oximetry 100 Oxygen Delivery 01/10/25 20:08 01/10/25 20:09 01/10/25 20:10 Temperature Pulse Rate 91 84 Blood Pressure 112/61 122/64 Pulse Oximetry 100 Oxygen Delivery 01/10/25 20:13 01/10/25 20:14 01/10/25 20:15 Temperature Pulse Rate 90 90 Blood Pressure 126/76 130/70 Pulse Oximetry 100 Oxygen Delivery 01/10/25 20:18 01/10/25 20:19 01/10/25 20:24 Temperature Pulse Rate 81 Blood Pressure 137/76 Pulse Oximetry 100 100 Oxygen Delivery 01/10/25 20:29 01/10/25 20:31 01/10/25 20:34 Temperature Pulse Rate 87 Blood Pressure 140/87 Pulse Oximetry 100 99 Oxygen Delivery 01/10/25 20:39 01/10/25 20:44 01/10/25 20:46 Temperature Pulse Rate 89 Blood Pressure 138/75 Pulse Oximetry 100 100 Oxygen Delivery 01/10/25 20:49 01/10/25 20:54 01/10/25 20:59 Temperature Pulse Rate Blood Pressure Pulse Oximetry 100 100 99 Oxygen Delivery 01/10/25 21:00 01/10/25 21:01 01/10/25 21:04 Temperature 36.1 C L Pulse Rate 80 Blood Pressure 101/50 L Pulse Oximetry 100 Oxygen Delivery 01/10/25 21:09 01/10/25 21:14 01/10/25 21:15 Temperature Pulse Rate 72 Blood Pressure 110/63 Pulse Oximetry 99 100 Oxygen Delivery 01/10/25 21:19 01/10/25 21:24 01/10/25 21:29 Temperature Pulse Rate Blood Pressure Pulse Oximetry 100 98 99 Oxygen Delivery 01/10/25 21:31 01/10/25 21:34 01/10/25 21:39 Temperature Pulse Rate 75 Blood Pressure 108/50 L Pulse Oximetry 99 100 Oxygen Delivery 01/10/25 21:44 01/10/25 21:45 01/10/25 21:49 Temperature Pulse Rate 82 Blood Pressure 104/62 Pulse Oximetry 100 100 Oxygen Delivery 01/10/25 21:54 01/10/25 21:59 01/10/25 22:00 Temperature Pulse Rate 85 Blood Pressure 105/73 Pulse Oximetry 100 100 Oxygen Delivery 01/10/25 22:04 01/10/25 22:09 01/10/25 22:14 Temperature Pulse Rate Blood Pressure Pulse Oximetry 100 100 100 Oxygen Delivery 01/10/25 22:19 01/10/25 22:24 01/10/25 22:29 Temperature Pulse Rate Blood Pressure Pulse Oximetry 100 100 100 Oxygen Delivery 01/10/25 22:31 01/10/25 22:34 01/10/25 22:39 Temperature Pulse Rate 91 Blood Pressure 127/70 Pulse Oximetry 100 100 Oxygen Delivery 01/10/25 22:44 01/10/25 22:46 01/10/25 22:49 Temperature Pulse Rate 89 Blood Pressure 118/58 L Pulse Oximetry 100 100 Oxygen Delivery 01/10/25 22:54 01/10/25 22:59 01/10/25 23:00 Temperature 36.4 C L Pulse Rate 91 Blood Pressure 128/70 Pulse Oximetry 100 100 Oxygen Delivery 01/10/25 23:04 01/10/25 23:09 01/10/25 23:14 Temperature Pulse Rate Blood Pressure Pulse Oximetry 100 100 100 Oxygen Delivery 01/10/25 23:16 01/10/25 23:19 01/10/25 23:24 Temperature Pulse Rate 83 Blood Pressure 113/55 L Pulse Oximetry 100 98 Oxygen Delivery 01/10/25 23:29 01/10/25 23:31 01/10/25 23:34 Temperature Pulse Rate 85 Blood Pressure 114/63 Pulse Oximetry 99 98 Oxygen Delivery 01/10/25 23:39 01/10/25 23:44 01/10/25 23:45 Temperature Pulse Rate 77 Blood Pressure 122/51 L Pulse Oximetry 98 98 Oxygen Delivery 01/10/25 23:49 01/10/25 23:54 01/10/25 23:59 Temperature Pulse Rate Blood Pressure Pulse Oximetry 97 98 98 Oxygen Delivery 01/11/25 00:01 01/11/25 00:04 01/11/25 00:09 Temperature Pulse Rate 79 Blood Pressure 113/61 Pulse Oximetry 98 100 Oxygen Delivery 01/11/25 00:14 01/11/25 00:16 01/11/25 00:19 Temperature Pulse Rate 86 Blood Pressure 130/56 L Pulse Oximetry 100 100 Oxygen Delivery 01/11/25 00:24 01/11/25 00:29 01/11/25 00:30 Temperature Pulse Rate 104 H Blood Pressure 121/71 Pulse Oximetry 98 98 Oxygen Delivery 01/11/25 00:34 01/11/25 00:39 01/11/25 00:44 Temperature Pulse Rate Blood Pressure Pulse Oximetry 99 98 97 Oxygen Delivery 01/11/25 00:45 01/11/25 00:49 01/11/25 00:54 Temperature Pulse Rate 93 Blood Pressure 133/74 Pulse Oximetry 97 98 Oxygen Delivery 01/11/25 00:59 01/11/25 01:01 01/11/25 01:04 Temperature Pulse Rate 105 H Blood Pressure 128/94 H Pulse Oximetry 99 97 Oxygen Delivery 01/11/25 01:05 01/11/25 01:09 01/11/25 01:14 Temperature 36.3 C L Pulse Rate Blood Pressure Pulse Oximetry 99 98 Oxygen Delivery 01/11/25 01:15 01/11/25 01:19 01/11/25 01:24 Temperature Pulse Rate 91 Blood Pressure 132/70 Pulse Oximetry 99 98 Oxygen Delivery 01/11/25 01:29 01/11/25 01:30 01/11/25 01:34 Temperature Pulse Rate 88 Blood Pressure 129/69 Pulse Oximetry 98 99 Oxygen Delivery 01/11/25 01:39 01/11/25 01:44 01/11/25 01:46 Temperature Pulse Rate 97 Blood Pressure 127/64 Pulse Oximetry 98 97 Oxygen Delivery 01/11/25 01:49 01/11/25 01:54 01/11/25 01:59 Temperature Pulse Rate Blood Pressure Pulse Oximetry 97 96 97 Oxygen Delivery 01/11/25 02:00 01/11/25 02:04 01/11/25 02:09 Temperature Pulse Rate 94 Blood Pressure 135/73 Pulse Oximetry 97 99 Oxygen Delivery 01/11/25 02:14 01/11/25 02:16 01/11/25 02:19 Temperature Pulse Rate 93 Blood Pressure 119/64 Pulse Oximetry 98 98 Oxygen Delivery 01/11/25 02:24 01/11/25 02:29 01/11/25 02:31 Temperature Pulse Rate 99 Blood Pressure 112/57 L Pulse Oximetry 98 97 Oxygen Delivery 01/11/25 02:34 01/11/25 02:39 01/11/25 02:44 Temperature Pulse Rate Blood Pressure Pulse Oximetry 99 97 97 Oxygen Delivery 01/11/25 02:45 01/11/25 02:49 01/11/25 02:54 Temperature Pulse Rate 86 Blood Pressure 108/51 L Pulse Oximetry 97 97 Oxygen Delivery 01/11/25 02:59 01/11/25 03:00 01/11/25 03:04 Temperature Pulse Rate 86 Blood Pressure 107/53 L Pulse Oximetry 97 99 Oxygen Delivery 01/11/25 03:05 01/11/25 03:09 01/11/25 03:14 Temperature 36.6 C Pulse Rate Blood Pressure Pulse Oximetry 98 98 Oxygen Delivery 01/11/25 03:15 01/11/25 03:19 01/11/25 03:24 Temperature Pulse Rate 93 Blood Pressure 119/78 Pulse Oximetry 98 99 Oxygen Delivery 01/11/25 03:29 01/11/25 03:30 01/11/25 03:34 Temperature Pulse Rate 95 Blood Pressure 121/71 Pulse Oximetry 98 98 Oxygen Delivery 01/11/25 03:39 01/11/25 03:44 01/11/25 03:45 Temperature Pulse Rate 92 Blood Pressure 115/54 L Pulse Oximetry 97 98 Oxygen Delivery 01/11/25 03:49 01/11/25 03:54 01/11/25 03:59 Temperature Pulse Rate Blood Pressure Pulse Oximetry 98 97 97 Oxygen Delivery 01/11/25 04:00 01/11/25 04:04 01/11/25 04:09 Temperature Pulse Rate 87 Blood Pressure 116/66 Pulse Oximetry 97 97 Oxygen Delivery 01/11/25 04:14 01/11/25 04:15 01/11/25 04:19 Temperature Pulse Rate 87 Blood Pressure 107/67 Pulse Oximetry 96 97 Oxygen Delivery 01/11/25 04:24 01/11/25 04:29 01/11/25 04:30 Temperature Pulse Rate 86 Blood Pressure 111/74 Pulse Oximetry 97 97 Oxygen Delivery 01/11/25 04:34 01/11/25 04:39 01/11/25 04:44 Temperature Pulse Rate Blood Pressure Pulse Oximetry 97 100 100 Oxygen Delivery 01/11/25 04:45 01/11/25 04:49 01/11/25 04:54 Temperature Pulse Rate 103 H Blood Pressure 122/79 Pulse Oximetry 96 96 Oxygen Delivery 01/11/25 04:59 01/11/25 05:00 01/11/25 05:04 Temperature Pulse Rate 97 Blood Pressure 112/75 Pulse Oximetry 96 98 Oxygen Delivery 01/11/25 05:05 01/11/25 05:09 01/11/25 05:16 Temperature 36.6 C Pulse Rate 85 Blood Pressure 90/54 L Pulse Oximetry 99 Oxygen Delivery 01/11/25 05:30 01/11/25 05:45 01/11/25 06:00 Temperature Pulse Rate 79 83 82 Blood Pressure 96/56 L 97/59 L 95/59 L Pulse Oximetry Oxygen Delivery 01/11/25 06:15 01/11/25 06:20 01/11/25 06:31 Temperature Pulse Rate 83 80 Blood Pressure 107/65 110/55 L Pulse Oximetry 98 Oxygen Delivery 01/11/25 06:45 Temperature Pulse Rate 95 Blood Pressure 116/70 Pulse Oximetry Oxygen Delivery Exam Const: General: cooperative, healthy appearing and comfortable Neck: Neck: normal visual inspection Chest: Chest palpation & inspection: normal inspection of the chest Resp: Effort & Inspection: normal respiratory effort Cardio: Rate: regular rate Rhythm: regular rhythm Heart sounds: S1 normal heart sound present and S2 normal heart sound present GI: Other: soft/gravid : Other: sterile vag exam 3, thick, -2 Urinary Catheter: Urinary Catheter: patent and draining and urine clear Back/Spine/Pelvis: Back: no CVA tenderness Skin: General skin exam: normal color, no rashes or lesions noted, elasticity normal and turgor normal Neuro: General: patient oriented x3 Extrem: General: normal to inspection, full ROM and capillary refill normal Right upper extremity: normal to inspection Left upper extremity: normal to inspection Right lower extremity: normal to inspection Left lower extremity: normal to inspection Psych: Appearance: grossly normal Mental Status: mental status grossly normal Speech and movement: Normal speech and movement present Affect: normal affect H&P: Results Labs Labs: Short CBC 01/10/25 Range/Units 06:25 WBC 13.7 H (4.5-10.0) K/mm3 Hgb 12.1 (12.0-15.0) g/dL Hct 36.3 L (37.0-47.0) % Plt Count 312 (150-375) k/mm3 Assessment and Plan Assessment and plan (1) Diabetes mellitus: Code(s): E11.9 - Type 2 diabetes mellitus without complications Status: Acute (2) Failure to progress in labor: Code(s): O62.2 - Other uterine inertia Status: Acute (3) Obesity: Code(s): E66.9 - Obesity, unspecified Status: Acute Plan Talked to patient and Dr. Lewis and decided to proceed with section for failure to progress. Blood sugars stable overnight. heart rate category 1. Contractions every 2-4 minutes.
[2025-01-11] MEDS: ONDANSETRON INJ 4 MG/2 ML VIAL IV PUSH (07:25)
[2025-01-11] MEDS: FAMOTIDINE 20 MG/2 ML VIAL IV PUSH (07:25)
[2025-01-11] MEDS: ACETAMINOPHEN 500 MG TABLET 1000 MG PO ×3 (07:25→20:02)
[2025-01-11] MEDS: AZITHROMYCIN IV 500 MG in SODIUM CHLORIDE 0.9% IV 250 ML IVPB (07:31)
[2025-01-11] MEDS: ceFAZolin 2 GM in SODIUM CHLORIDE 0.9% IV 50 ML 100 ML IVPB (07:37)
--- NOTE | 2025-01-11 07:49 | WPDHPUPDATE1 ---
History and Physical Update Update Date/Time: 01/11/25 07:49 History and Physical has been reviewed, including an updated exam of the patient. There are NO changes in the patient's condition. Risks, benefits, and alternatives have been discussed and questions answered. Patient agrees to proceed with procedure.
--- NOTE | 2025-01-11 08:41 | W.PM.OBCSD ---
OB - Delivery Note Procedure Delivery date: 01/11/25 Pre-op diagnosis: Arrest of Dilation Post-op Diagnosis: Same Delivery monitor: External FHT and External Uterine Procedure Performed: Primary Surgeon: Carlos Lewis MD Anesthesia type: Epidural Description of Procedure/Findings: The patient was taken the operating room.? She was prepped and draped in dorsal supine position with a leftward tilt.? This was done after spinal anesthetic was applied.? A low-transverse skin incision was made and carried down till of the fascia with the knife.? The fascial incision was made with the knife.? The fascial incision was extended laterally with Bueno scissors.? The fascia was tented upward superiorly and inferiorly the rectus muscles were dissected off bluntly.? The rectus muscles were the midline.? The preperitoneal fat and peritoneum were dissected open bluntly at the superior aspect of the rectus muscles.? The peritoneal incision was extended superior and inferior with good position of bladder.? The uterine incision was made with a scalpel down to the level of the amniotic cavity.? The amniotic cavity was entered bluntly.? The was delivered.? The cord was clamped and cut and the was handed off to waiting pediatric staff.? Cord bloods were obtained.? The placenta was removed manually.? The uterus was exteriorized.? The uterus was cleared of all clots, debris and membranes.? The uterus was closed in 0 Vicryl running lock fashion.? An imbricating over a was placed along the incision line as well.? The uterus was returned to the abdomen.? The gutters were cleared of all clots and debris.? The fascia was closed with 0 Vicryl running fashion.? The subcutaneous tissue was irrigated pinpoint bleeders were cauterized.? The skin was closed with subcuticular absorbable iris.? The skin incision line was covered with glue.? The patient tolerated the procedure well.? She has taken recovery room in stable condition.? Sponge lap and needle counts were correct x2.?
[2025-01-11 08:59] LABS: Syphilis IgG/IgM Antibody Non-Reactive (Nonreactive)
[2025-01-11] MEDS: fentaNYL CITRATE INJ (*CRX) 100 MCG/2 ML VIAL 25 MCG IV PUSH ×2 (10:11→10:27)
[2025-01-11] MEDS: SCOPOLAMINE 1 MG PATCH 1 PATCH TRANSDERM (10:15)
[2025-01-11] MEDS: SIMETHICONE 80 MG TAB.CHEW PO ×3 (10:15→17:41)
--- NOTE | 2025-01-11 11:17 | PC.NURSE ---
Patient transferred to post room #292 via stretcher. Support person present. Oriented to unit, room, information board, rooming in, admission packet and security measures. Patient verbalizes understanding.
[2025-01-11] MEDS: KETOROLAC 15 MG/ML VIAL (*BKC) IV PUSH ×2 (13:43→20:02)
[2025-01-11] MEDS: MULTIVIT/MIN/PREN/FOL AC/IRON TABLET 1 TAB PO (13:49)
[2025-01-11] MEDS: DOCUSATE SODIUM 100 MG CAPSULE PO (13:50)
[2025-01-11] MEDS: LIDOCAINE 5% PATCH 1 PATCH TRANSDERM (17:42)
[2025-01-12 00:16] VITALS: BP 109/68; PULSE 87; RESP 14; TEMP 36.9; O2SAT 97
[2025-01-12] MEDS: ACETAMINOPHEN 500 MG TABLET 1000 MG PO ×4 (02:26→21:16)
[2025-01-12] MEDS: KETOROLAC 15 MG/ML VIAL (*BKC) IV PUSH (02:26)
[2025-01-12 04:41] LABS: Hematocrit 31.5 % (37.0-47.0); Hemoglobin 9.7 g/dL (12.0-15.0); Immature Granulocyte Percent A 0.7 % (0-0.5); Lymphocytes Absolute Auto 3.13 K/mm3 (0.9-3.2); Mean Corpuscular HGB Conc 30.8 g/dl (32-36); Mean Corpuscular Hemoglobin 27.1 pg (26-34); Mean Corpuscular Volume 88.0 fl (80-100); Nucleated Red Blood Cells Absolute Auto 0.000 K/mm3 (0.0-0.012); Nucleated Red Blood Cells Perc 0.0 % (0.0-0.2); Platelet Count Result 260 k/mm3 (150-375); Red Blood Count 3.58 M/mm3 (4.2-5.4); White Blood Count 14.9 K/mm3 (4.5-10.0)
[2025-01-12 05:07] VITALS: BP 111/65; PULSE 76; RESP 14; TEMP 36.2; O2SAT 98
--- NOTE | 2025-01-12 07:22 | WPDANLDPN2 ---
Anes-Prog Note L&D Date/Time: 01/12/25 07:22 Comfortable throughout: section Neuraxial method: epidural Epidural/Spinal procedure site: clean & non-tender Neuro status: Neuro function grossly intact. Cardiovascular status: normal Respiratory status: normal Airway patency: baseline Mental status: baseline Post-Op hydration status: normal Vital Signs: Last Vital Signs Temp 36.2 C L 01/12/25 05:07 Pulse 76 01/12/25 05:07 Resp 14 01/12/25 05:07 BP 111/65 01/12/25 05:07 Pulse Ox 98 01/12/25 05:07 O2 Del Method Room Air 01/11/25 10:45 Pain score (VAS): 2/10 I/O: Intake & Output 01/11/25 01/11/25 01/12/25 15:59 23:59 07:59 Intake Total 460 788 1089 Output Total 61 1125 800 Balance 179 -1025 400 Post-procedural complaints: none Patient feedback: Patient satisfied with anesthetic care.
--- NOTE | 2025-01-12 07:22 | WPDANLDNPN2 ---
Anes-Prog Note L&D-Neuraxial Date/Time: 01/12/25 07:22 Neuraxial medications: epidural PF morphine Opiod-related complaints: none Patient feedback: Patient satisfied with post-operative pain management.
[2025-01-12 08:00] VITALS: BP 108/61; PULSE 79; RESP 18; TEMP 36.4; O2SAT 100
[2025-01-12] MEDS: IBUPROFEN 600 MG TABLET PO ×3 (08:25→21:16)
[2025-01-12] MEDS: SIMETHICONE 80 MG TAB.CHEW PO ×3 (08:26→17:05)
[2025-01-12] MEDS: DOCUSATE SODIUM 100 MG CAPSULE PO ×2 (08:26→17:05)
[2025-01-12] MEDS: MULTIVIT/MIN/PREN/FOL AC/IRON TABLET 1 TAB PO (08:27)
--- NOTE | 2025-01-12 09:33 | P.PNOB_ITS ---
OB - PN: Subj Subjective Date/time seen: 01/12/25 09:33 Interval history: pp day 1 doing well voiding and passing flatus OB - PN: Obj Data Labs 01/12/25 04:22 Labs: Laboratory Results - last 24 hr 01/11/25 01/11/25 01/11/25 11:40 18:47 22:44 WBC RBC Hgb Hct MCV MCH MCHC RDW Plt Count MPV Immature Gran % (Auto) Neut % (Auto) Lymph % (Auto) [place] % (Auto) Eos % (Auto) Baso % (Auto) Lymph # (Auto) [place] # (Auto) Eos # (Auto) Baso # (Auto) Abs Immat Gran (auto) Absolute Neuts (auto) Absolute Nucleated RBC Nucleated RBC % POC Capillary Glucose 88 137 H 129 H 01/12/25 01/12/25 04:22 08:29 WBC 14.9 H RBC 3.58 L Hgb 9.7 L Hct 31.5 L MCV 88.0 D MCH 27.1 MCHC 30.8 L RDW 14.2 Plt Count 260 MPV 9.9 Immature Gran % (Auto) 0.7 H Neut % (Auto) 69.7 Lymph % (Auto) 21.0 [place] % (Auto) 7.3 Eos % (Auto) 0.9 Baso % (Auto) 0.4 Lymph # (Auto) 3.13 [place] # (Auto) 1.1 H Eos # (Auto) 0.1 Baso # (Auto) 0.1 Abs Immat Gran (auto) 0.10 H Absolute Neuts (auto) 10.4 H Absolute Nucleated RBC 0.000 Nucleated RBC % 0.0 POC Capillary Glucose 94 OB - PN A/P Plan day: 1 Plan: routine care Time Spent With Patient Time: Total time spent is greater than 50% in coordination of care (as documented) at patient's floor/unit and/or counseling patient: Review of Systems 2 Review of Systems: All systems reviewed & are unremarkable except as noted in HPI and below Exam 2 Const: General: cooperative, healthy appearing and comfortable Chest: Chest palpation & inspection: normal inspection of the chest Resp: Effort & Inspection: normal respiratory effort Cardio: Rate: regular rate Back/Spine/Pelvis: Back: no CVA tenderness Skin: General skin exam: normal color Neuro: General: patient oriented x3 Extrem: Right lower extremity: normal to inspection Left lower extremity: n ormal to inspection Psych: Appearance: grossly normal
[2025-01-12] MEDS: oxyCODONE HCL (*CRX) 5 MG TAB IR PO (12:47)
[2025-01-12] MEDS: oxyCODONE HCL (*CRX) 5 MG TAB IR 10 MG PO (17:06)
[2025-01-12] MEDS: LIDOCAINE 5% PATCH 1 PATCH TRANSDERM (17:07)
[2025-01-12 18:45] VITALS: BP 111/69; PULSE 79; RESP 16; TEMP 36.4; O2SAT 100
[2025-01-13] MEDS: oxyCODONE HCL (*CRX) 5 MG TAB IR 10 MG PO (00:02)
[2025-01-13] MEDS: IBUPROFEN 600 MG TABLET PO ×2 (03:31→09:41)
[2025-01-13] MEDS: ACETAMINOPHEN 500 MG TABLET 1000 MG PO ×2 (03:31→09:40)
--- NOTE | 2025-01-13 06:01 | P.PNOB_ITS ---
OB - PN: Subj Subjective Date/time seen: 01/13/25 06:01 Interval history: pp day 2 doing well voiding and passing flatus breast and bottle feeding desires d/c home OB - PN: Obj Data Labs 01/12/25 04:22 Labs: Laboratory Results - last 24 hr 01/12/25 01/12/25 01/12/25 08:29 12:41 20:22 POC Capillary Glucose 94 180 H 94 OB - PN A/P Plan day: 2 Plan: routine care and discharge home Time Spent With Patient Time: Total time spent is greater than 50% in coordination of care (as documented) at patient's floor/unit and/or counseling patient: Review of Systems 2 Review of Systems: All systems reviewed & are unremarkable except as noted in HPI and below Exam 2 Const: General: cooperative, healthy appearing and comfortable Chest: Chest palpation & inspection: normal inspection of the chest Resp: Effort & Inspection: normal respiratory effort Cardio: Rate: regular rate GI: Other: incision CDI Back/Spine/Pelvis: Back: no CVA tenderness
--- NOTE | 2025-01-13 06:04 | P.DS_ITS ---
DS: Admitting Diagnosis Discharge Date 01/13/25 Admitting Diagnosis IOL, diabetes mellitus DS: Discharge Diagnosis Discharge Diagnosis (1) Vaginal delivery: Code(s): O80 - Encounter for full-term uncomplicated delivery Status: Inactive OB - DS: Summary OB Procedures : None OB Procedures Intrapartum: OB Procedures: : None Peripartum Data Procedures: Procedures Operation Date: 01/11/25 07:45 Actual Procedure Side Surgeon p Section Not Applicable Carlos Lewis MD Time Spent with Patient Time attestation: Total time spent providing and/or coordinating discharge services: DS: Data Data Completed and Pending Labs on day of discharge: Labs from last 24 hours 01/12/25 01/12/25 01/12/25 20:22 12:41 08:29 POC Capillary Glucose 94 180 H 94 Discharge Plan Discharge Attending physician on discharge: Carlos Lewis Consulting providers: Chay Preston Discharging Clinician: Chay Preston Patient Disposition: Home Activity: pelvic rest Diet: regular Patient Instructions: Antibiotic Form Patient Language: Ghanaian Stand Alone Forms: General Discharge Information Follow-up/Referrals: Carlos Lewis MD [Physician, [employer]] - 1 Week Referral Note: 4 week chay preston Discharge Medications: New oxycodone 5 mg Tablet 5 mg PO Q4H PRN (Reason: Pain Rated 4-6) 14 Days Qty: 35 0RF Continued PNV no.95-ferrous fumarate-FA [] 28 mg iron- 800 mcg tablet 1 tablet PO DAILY metformin 1,000 mg tablet 1,000 mg PO BID Discontinued aspirin 81 mg capsule 162 mg PO DAILY insulin lispro [Humalog KwikPen Insulin] 100 unit/mL insulin pen 1 sliding scale dose subcut USEASDIRECTD Patient Comments: breakfast- 40 units lunch- 66 units dinner 86 units insulin glargine U-300 conc 300 unit/mL (1.5 mL) insulin pen 100 unit subcut HS Date of admission: 01/10/25 05:54 Primary Care Provider: PHYSICIAN,LEAD SETTER Admitting Provider: Carlos Lewis Attending physician on admission: Carlos Lewis Condition: Stable
[2025-01-13 07:25] VITALS: BP 133/67; PULSE 88; RESP 16; TEMP 36.6; O2SAT 98
[2025-01-13 08:00] VITALS: PULSE 88; RESP 16; O2SAT 98
[2025-01-13] MEDS: SIMETHICONE 80 MG TAB.CHEW PO ×2 (08:28→13:14)
[2025-01-13] MEDS: oxyCODONE HCL (*CRX) 5 MG TAB IR PO ×3 (08:29→13:13)
[2025-01-13] MEDS: MULTIVIT/MIN/PREN/FOL AC/IRON TABLET 1 TAB PO (08:33)
--- NOTE | 2025-01-13 09:15 | PC.NURSE ---
Consulted with mother concerning needs and she shared her ability to independently latch infant optimally without pain (does have some latch on tenderness). Latch observed on the right breast in football hold at this time. Mom was independently and baby latched optimally on the first attempt. She suckles off and on with some encouragement, but overall appears to be feeding well. Baby is being supplemented with formula also. Mother is feeding appropriately for growth of and understands stimulating to eat if needed. Infant has had appropriate feedings in the last 24 hours meets the outcomes for weight, output, blood sugar and jaundice at this time. Reinforced understanding of milk production, transition of milk, signs of adequate intake, transition of stool, prevention/relief of engorgement, plugged ducts, mastitis, responsive watching for feeding cues, the different methods of stimulating to breastfeed 1-3 hours after the start of the last feeding, community resources, and when to call a provider using the resource of the feeding sheet along with the mom and baby guide. We reviewed the use of her Spectra breast pump and she has the user manual for further guidance. She also has a [employer] wearable pump. Mother voiced understanding of the information shared, is confident to continue effectively her infant at home, when to call for assistance, denies any additional assistance or education at this time. Father present for education. Reported to the Primary RN.
[2025-01-15 09:37] VITALS: BP 120/63; PULSE 81; RESP 18; TEMP 37.1; O2SAT 100
== END 2025-01-13 13:32 | disposition home or self-care (01) | DRG 788 ==
LOC: ANHLDR 06:09 → ANHOB2 01-11 11:19
PROVIDERS: Advanced Practice Midwife; Admitting Provider Obstetrics & Gynecology; Visit Provider Obstetrics & Gynecology
PROC: 10D00Z1 Extraction of Products of Conception, Low, Open Approach (ICD-10-PCS; CPT 59514; principal; 2025-01-11 07:45)
DX: O24.424 Gestational diabetes mellitus in childbirth, insulin controlled (principal); Z37.0 Single live birth; Z3A.37 37 weeks gestation of pregnancy; O99.214 Obesity complicating childbirth; E66.01 Morbid (severe) obesity due to excess calories; O62.1 Secondary uterine inertia
CPT/HCPCS: 36415; 82948; 85025; 86593; 86850; 86900; 86901; J0690; A9270; J0456; J1815; J1885; J2274; J2405; J2590; J2795; J3010; J7050; J7120

== ENCOUNTER 2025-02-19 16:46 | Observation (INO) | payer OTHER, MEDICAID, SELFPAY ==
--- NOTE | ~2025-02-19 | MR_ITS ---
EXAM/PROCEDURE: MR MRCP wo/w con/w 3D wo ind HISTORY: Cholelithiasis COMPARISON: Ultrasound from February 19 TECHNIQUE: Prepostcontrast and abdominal MRI with MRCP technique performed. 20 mL MultiHance administered. FINDINGS: Small number of gallstones noted with small amount of pericholecystic fluid. No gross wall thickening. The common bile duct is slightly distended measuring up to 6 mm. No discrete filling defect is seen, however the distalmost portion of the common bile duct just before merging with the pancreatic duct is not well seen and small stone in this area is not excluded. See image 38 of series 12. The liver is moderately enlarged measuring 23.5 cm in dimension. A liver changes noted. Spleen upper limits normal size. No abnormal enhancing lesions or masses seen. IMPRESSION: 1. Cholelithiasis with pericholecystic fluid and slightly distended common bile duct; choledocholithiasis is not excluded as above. 2. Fatty liver changes and hepatomegaly also noted. Reviewed, dictated and finalized at location A. LATHE OPERATOR
--- NOTE | ~2025-02-19 | XR_ITS ---
EXAMINATION: XR ERCP DATE: 02/21/2025 13:20 INDICATION: Abdominal pain TECHNIQUE: A single fluoroscopic spot image of the right upper quadrant was obtained during endoscopic retrograde cholangiopancreatography (ERCP) performed by Dr. Mahajan. Radiologist was not present for the imaging or procedure. The amount of fluoroscopy time used during this procedure was 1.4 minutes. Total DAP was 1.05 mGycm^2. COMPARISON: None. FINDINGS: Images demonstrate cannulation and retrograde contrast injection into the common bile duct. Ovoid lucent filling defect within the common bile duct alongside the catheter likely representing a balloon for sweeping of the common bile duct. IMPRESSION: 1. Fluoroscopy utilized during ERCP. Please refer to the ERCP procedure note for additional details. Reviewed, dictated and finalized at location A. ORY HAND IMPRESSION: 1. Fluoroscopy utilized during ERCP. Please refer to the ERCP procedure note fo r additional details.
--- NOTE | ~2025-02-19 | CT_ITS ---
CT abdomen pelvis w con INDICATION:concern for cholecystectomy . COMPARISON: None. TECHNIQUE: Axial images of the abdomen and pelvis were obtained following infusion of 100 mL Isovue 300. Dose optimization technique was utilized. FINDINGS: The lung bases are clear. Fatty infiltration of the liver is noted. No intrahepatic mass or ductal dilatation is evident. Mild thickening of the gallbladder wall with adjacent pericholecystic fluid. No gallstone seen. The pancreas and spleen are normal in appearance. The adrenal glands are symmetric in size. The kidneys demonstrate symmetric uptake and excretion of contrast. No cystic mass is evident. There is no solid mass. There is no hydronephrosis. The stomach and bowel loops are unremarkable. The appendix is normal in appearance. There is colonic diverticulosis without evidence of acute diverticulitis. The bladder and rectum are normal. No free intraperitoneal fluid or air is evident. There is no significant retroperitoneal lymphadenopathy. The aorta, visceral vessels and renal arteries demonstrate normal caliber and patency. The lower thoracic and lumbar vertebrae are in normal alignment. IMPRESSION: Mildly thickened gallbladder wall with pericholecystic fluid suggestive of cholecystitis. Correlate clinically and if indicated follow-up ultrasound. All CT scans at this facility are performed using low dose modulation techniques as appropriate to perform exam including the following: automated exposure control; use of iterative reconstruction technique; adjustment of the mA and/or kV according to patient size (this includes techniques or standardized protocols for targeted exams where dose is matched to indication/reason for exam). Reviewed, dictated and finalized at location S. CE CAPTAIN SENIOR IMPRESSION: Mildly thickened gallbladder wall with pericholecystic fluid suggestive of chol ecystitis. Correlate clinically and if indicated follow-up ultrasound. All CT scans at this facility are performed using low dose modulation techniqu es as appropriate to perform exam including the following: automated exposure c ontrol; use of iterative reconstruction technique; adjustment of the mA and/or kV according to patient size (this includes techniques or standardized protocol s for targeted exams where dose is matched to indication/reason for exam).
--- NOTE | ~2025-02-19 | US_ITS ---
LIMITED ABDOMINAL ULTRASOUND INDICATION:concern for cholecystitis COMPARISON: None. FINDINGS: Liver: Visualized portions of the liver are normal. Common bile duct: Common bile duct is normal in caliber measuring 4 mm. Gallbladder: Cholelithiasis is noted. Gallbladder wall is normal in thickness measuring up to 2.3 mm. Mild pericholecystic fluid is noted. Montano's sign: Negative Right kidney:There is no hydronephrosis. Right kidney is unremarkable. IMPRESSION: Cholelithiasis with normal gallbladder wall thickness. There is mild pericholecystic fluid. Reviewed, dictated and finalized at location S. NGUAL RECEPTIONIST IMPRESSION: Cholelithiasis with normal gallbladder wall thickness. There is mild pericholec ystic fluid.
[2025-02-19 16:56] VITALS: BP 132/65; PULSE 79; RESP 16; TEMP 36.4; O2SAT 100
--- NOTE | 2025-02-19 20:05 | ED.ABDPAIN ---
HPI - Abdominal Pain General Chief Complaint: Abdominal Pain Stated Complaint: abd pain Time Seen by Provider: 02/19/25 19:28 History of Present Illness HPI narrative: Patient is a 29-year-old female who presents to the ER with upper abdominal pain and midback pain. She reports this pain started earlier today. Patient reports she is approximately 4 weeks via . She reports her vaginal bleeding following her delivery has decreased lately. Patient endorses a history of gestational diabetes but denies any other medical history. She denies any chest pain, saddle anesthesia, loss of continence, or recent fevers. Related Data Home Medications ?Medication ?Instructions ?Recorded ?Confirmed ?Last Taken ?Type vit no.95-ferrous 1 tablet PO DAILY 12/28/24 02/20/25 01/09/25 History fumarate 28 mg-folic acid 800 mcg tablet () Allergies Allergy/AdvReac Type Severity Reaction Status Date / Time No Known Allergies Allergy Mild Verified 02/19/25 16:48 Review of Systems Review of Systems: All systems reviewed & are unremarkable except as noted in HPI and below [facility] Family History Family History Mother Hypertension Preeclampsia Other Breast cancer Diabetes mellitus Social History Social History Substance use: never Lack of Transportation: No Lack of Food: Never True Current Housing: I Have Housing Concerned About Future Housing: No Difficulty Paying Gas/Electric Bills: No Difficulty Paying for Meds: No Currently Unemployed: No Education: High School Diploma/GED Difficulty w/ Childcare or Family Care: No Spiritual care concerns: No Exam Narrative: GENERAL: Well appearing, obese, non-toxic, in no acute distress. HEAD: Normocephalic, atraumatic. NECK: Supple. No adenopathy, no masses. RESPIRATORY: Airway patent, respirations nonlabored. Clear to auscultation bilaterally, no rales, rhonchi, wheezing. CARDIOVASCULAR: Regular rate and rhythm without murmurs, rubs, or gallops. Peripheral pulses 2+ and equal bilaterally. ABDOMINAL: Soft, nontender, nondistended, no hepatosplenomegaly. Normoactive BS. Negative Montano sign MUSCULOSKELETAL: Moves all extremities. Strength/ROM intact without gross deformities. SKIN: Warm, dry, normal color. No rashes. NEURO: A&O X3. Speech clear. Cranial nerves II-XII intact. No ataxic movements. PSYCHIATRIC: Appropriate mood and affect. Normal interaction. Course Vital Signs Vital signs: Vital Signs Temperature 36.4 C L 02/19/25 16:56 Pulse Rate 79 02/19/25 16:56 Respiratory Rate 16 02/19/25 16:56 Blood Pressure 132/65 02/19/25 16:56 Pulse Oximetry 100 02/19/25 16:56 Temperature 36.4 C 02/20/25 00:36 Pulse Rate 75 02/20/25 00:36 Respiratory Rate 16 02/20/25 00:36 Blood Pressure 122/74 02/20/25 00:36 Pulse Oximetry 99 02/20/25 00:36 MDM - Abdominal Pain MDM Narrative Medical decision making narrative: Patient is a 29-year-old female who presents to the ER with upper abdominal pain and midback pain. She reports this pain started earlier today. Patient reports she is approximately 4 weeks via . She reports her vaginal bleeding following her delivery has decreased lately. Patient endorses a history of gestational diabetes but denies any other medical history. She denies any chest pain, saddle anesthesia, loss of continence, or recent fevers. Labs Ordered: CBC, CMP, UA, lipase, PTT, INR, TSH, iron/TIBC panel, hep B antibody, hep a antibody, ferritin, hep C antibody, magnesium, uric acid, LDH, vitamin B12 and folic acid, CRP Imaging Ordered: CT abdomen pelvis, right upper quadrant ultrasound Medications Ordered: 1 L normal saline IV bolus Results: Patient's CBC indicates no acute abnormalities. Her coags indicated no acute abnormalities. Patient's chemistry indicates a sodium of 136, glucose of 130, uric acid of 8.2, calcium of 10.8, total bilirubin of 3.7, direct bilirubin 1.3, AST of 1210, ALT of 868, alk-phos of 185. Her C-reactive protein is 2.5. Patient's lipase is negative. Her urinalysis indicates trace ketones, 2+ bilirubin, 1+ leukocytes, 3-5 rbcs. Diagnosis: elevated liver enzymes, cholelithiasis Consults: 2144- Spoke with general surgery, Dr. Kinney, who would like pt to be admitted to the hospital. He would like pt to remain NPO. Dr. Kinney would like a hepatitis panel drawn. He would also like a GI consult placed. Dr. Kinney does not think pt needs IV abx. 2244- Spoke with gastroenterology, Dr. Mahajan, who reports pt should have an MRCP in the morning. She should remain NPO, but can have LR infusing through her IV @ 100/hour. Dr. Mahajan agrees pt does not need IV abx. MDM: Results of imaging and lab work shared with patient. It was advised patient be admitted to the hospital for further evaluation and treatment. She continues to decline pain medication administration. Patient verbalized understanding and is in agreement with plan. 2309- Spoke with hospitalist, Dania Martinez NP, who is in agreement with plan for admission. Patient will be admitted to the med/surg floor. She will remain NPO and have an MRCP in the morning. Differential Diagnosis Differential diagnosis: Likely abdominal pain, calculus of kidney, constipation, gastroenteritis, pancreatitis and small bowel obstruction Lab Data Attestation: I reviewed the patient's lab results. 02/19/25 20:10 02/19/25 20:10 Labs: Lab Results 02/19/25 02/19/25 02/19/25 Range/Units 20:08 20:09 20:10 WBC 8.6 (4.5-10.0) K/mm3 RBC 4.84 (4.2-5.4) M/mm3 Hgb 13.1 D (12.0-15.0) g/dL Hct 40.1 (37.0-47.0) % MCV 82.9 (80-100) fl MCH 27.1 (26-34) pg MCHC 32.7 (32-36) g/dl RDW 13.4 (11.5-14.5) % Plt Count 366 (150-375) k/mm3 MPV 9.3 (7.4-10.4) fl Immature Gran % (Auto) 0.3 (0-0.5) % Neut % (Auto) 59.7 (45.5-73.1) % Lymph % (Auto) 31.5 (18.3-44.2) % [place] % (Auto) 5.7 (2.6-8.5) % Eos % (Auto) 2.1 (0-4.4) % Baso % (Auto) 0.7 (0.2-1.2) % Lymph # (Auto) 2.70 (0.9-3.2) K/mm3 [place] # (Auto) 0.5 (0.1-0.6) K/mm3 Eos # (Auto) 0.2 (0-0.3) K/mm3 Baso # (Auto) 0.1 (0.0-0.1) K/mm3 Abs Immat Gran (auto) 0.03 (0.00-0.031) K/mm3 Absolute Neuts (auto) 5.1 (1.3-6.7) K/mm3 Absolute Nucleated RBC 0.000 (0.0-0.012) K/mm3 Nucleated RBC % 0.0 (0.0-0.2) % ESR 19 (0-20) mm/hr PT 13.5 (11.1-14.7) Seconds INR 1.0 APTT 24.9 (22.3-36.8) Seconds Sodium 136 L (137-145) mmol/L Potassium 4.0 (3.4-5.0) mmol/L Chloride 100 (98-107) mmol/L Carbon Dioxide 29 (22-30) mmol/L Anion Gap 7 (4-12) mmol/L BUN 10 (7-17) mg/dL Creatinine 0.79 (0.7-1.0) mg/dL Estim Creat Clear Calc 106 ml/min Estimated GFR > 60 (59 - ) Glucose 130 H (65-110) mg/dL Uric Acid 8.2 H (2.5-7.5) mg/dL Calcium 10.8 H (8.4-10.2) mg/dL Magnesium 1.8 (1.6-2.3) mg/dL Iron 150 (37-170) ug/dL TIBC 342 (261-462) ug/dL % Saturation 44 (20-50) % Ferritin 113.00 (6.24-137) ng/mL Total Bilirubin 3.7 H 3.7 H (0.2-1.3) mg/dL Direct Bilirubin 1.3 H (0-0.3) mg/dL AST 1177 H 1210 H (14-36) U/L ALT 848 H 868 H (6-35) U/L Alkaline Phosphatase 185 H 185 H (38-126) U/L Lactate Dehydrogenase 1189 H (120-246) U/L C-Reactive Protein 2.5 H (<1.0) mg/dL Total Protein 7.5 7.5 (6.3-8.2) g/dL Albumin 4.2 4.2 (3.5-5.1) g/dL Lipase 43 (23-300) U/L Vitamin B12 > 1000.0 H (239-931) pg/mL Folate > 20.0 H (2.76->20) ng/mL TSH (Reflex) 2.650 (0.465-4.68) uIU/mL Urine Color Dark yellow (Yellow) Urine Appearance Clear (Clear) Urine pH 5.0 (5.0-9.0) Ur Specific [place] 1.024 (1.001-1.035) Urine Protein Negative (Negative) mg/dL Urine Glucose (UA) Negative (Negative) mg/dL Urine Ketones Trace H (Negative) mg/dL Ur Blood (Man) Negative (Negative) Urine Nitrate Negative (Negative) Urine Bilirubin 2+ H (Negative) Urine Urobilinogen 1.0 (<2.0) mg/dL Add Ur Microanalysis Reviewed Leukocyte Esterase Rfl 1+ H (Negative) CHRISTOPHER/UL Urine RBC 3-5 H (0-2) /hpf Urine WBC 0-5 (0-3) /hpf Ur Squamous Epith Cells Few (Few) /hpf Urine Bacteria None seen /hpf Urine Casts 0-2 Hepatitis A IgM Ab Negative (Negative) Hep Bs Antibody Negative Hep B Core Total Ab Pending Hep B Core IgM Ab Negative (Negative) Hepatitis C Ab Screen Negative (Negative) Imaging Data Attestation: I personally reviewed and interpreted this imaging study as follows: Radiologist's impression: ITS Impressions Abdomen/Pelvis CT 02/19/25 20:54 IMPRESSION: Mildly thickened gallbladder wall with pericholecystic fluid suggestive of cholecystitis. Correlate clinically and if indicated follow-up ultrasound. All CT scans at this facility are performed using low dose modulation techniques as appropriate to perform exam including the following: automated exposure control; use of iterative reconstruction technique; adjustment of the mA and/or kV according to patient size (this includes techniques or standardized protocols for targeted exams where dose is matched to indication/reason for exam). Upper Quadrant Ultrasound 02/19/25 21:36 IMPRESSION: Cholelithiasis with normal gallbladder wall thickness. There is mild pericholecystic fluid. Discharge Plan Discharge Clinical Impression: Elevated liver enzymes, Cholelithiasis Patient Disposition: Still a Patient Condition: Stable
[2025-02-19 20:19] LABS: Hematocrit 40.1 % (37.0-47.0); Hemoglobin 13.1 g/dL (12.0-15.0); Immature Granulocyte Percent A 0.3 % (0-0.5); Lymphocytes Absolute Auto 2.70 K/mm3 (0.9-3.2); Mean Corpuscular HGB Conc 32.7 g/dl (32-36); Mean Corpuscular Hemoglobin 27.1 pg (26-34); Mean Corpuscular Volume 82.9 fl (80-100); Nucleated Red Blood Cells Absolute Auto 0.000 K/mm3 (0.0-0.012); Nucleated Red Blood Cells Perc 0.0 % (0.0-0.2); Platelet Count Result 366 k/mm3 (150-375); Red Blood Count 4.84 M/mm3 (4.2-5.4); White Blood Count 8.6 K/mm3 (4.5-10.0)
[2025-02-19] MEDS: SODIUM CHLORIDE 0.9% IV 1,000 ML 999 ML IV CONT (20:20)
[2025-02-19 20:28] LABS: Albumin Level 4.2 g/dL (3.5-5.1); Alkaline Phosphatase 185 U/L (38-126); Anion Gap 7 mmol/L (4-12); Bilirubin,Total 3.7 mg/dL (0.2-1.3); Blood Urea Nitrogen 10 mg/dL (7-17); Calcium 10.8 mg/dL (8.4-10.2); Carbon Dioxide 29 mmol/L (22-30); Chloride 100 mmol/L (98-107); Estimated CRCL calculation 106 ml/min; Estimated Glomerular Filt Rate > 60; Glucose 130 mg/dL (65-110); Lipase 43 U/L (23-300); Potassium 4.0 mmol/L (3.4-5.0); Sodium 136 mmol/L (137-145); Total Protein 7.5 g/dL (6.3-8.2)
[2025-02-19 20:30] LABS: INR 1.0; Prothrombin Time 13.5 Seconds (11.1-14.7)
[2025-02-19 20:31] LABS: Partial Thromboplastin Time 24.9 Seconds (22.3-36.8)
[2025-02-19 20:33] LABS: Add Urine Microscopic? YES; Appearance Urine Clear (Clear); Glucose Urine UA Negative (Negative); Leukocyte Esterase Ur 1+ LEU/UL (Negative); Need Manual Microscopic Reviewed; Nitrate Urine Negative (Negative); Non Pathogenic Casts 0-2; Specific Grav Ur 1.024 (1.001-1.035)
[2025-02-19 20:46] LABS: Alanine Aminotransferase 868 U/L (6-35); Aspartate Amino Transferase 1210 U/L (14-36)
[2025-02-19 22:14] LABS: Iron 150 ug/dL (37-170)
[2025-02-19 22:16] LABS: Albumin Level 4.2 g/dL (3.5-5.1); Alkaline Phosphatase 185 U/L (38-126); Bilirubin,Total 3.7 mg/dL (0.2-1.3); CRP 2.5 mg/dL (<1.0); Total Protein 7.5 g/dL (6.3-8.2)
[2025-02-19 22:21] LABS: Alanine Aminotransferase 848 U/L (6-35); Aspartate Amino Transferase 1177 U/L (14-36)
[2025-02-19 22:24] LABS: Percent Iron Saturation 44 % (20-50)
[2025-02-19 22:34] LABS: Magnesium 1.8 mg/dL (1.6-2.3); Uric Acid 8.2 mg/dL (2.5-7.5)
[2025-02-19 22:46] LABS: Thyroid Stimulating Hormone Reflex 2.650 uIU/mL (0.465-4.68)
[2025-02-19 22:51] LABS: Ferritin 113.00 ng/mL (6.24-137)
[2025-02-19 23:06] LABS: HAV RESULT Negative (Negative); Hepatitis B Core IgM Result Negative (Negative)
[2025-02-19 23:18] VITALS: BP 123/81; PULSE 85; RESP 14; O2SAT 98
[2025-02-19 23:19] LABS: Hepatitis B Surface Anti Res Negative
[2025-02-19 23:22] LABS: Vitamin B12 > 1000.0 pg/mL (239-931)
[2025-02-20 00:34] VITALS: BMI 43.1
[2025-02-20] MEDS: LACTATED RINGERS 1,000 ML 125 ML IV CONT ×3 (00:35→17:52)
[2025-02-20 00:36] VITALS: BP 122/74; PULSE 75; RESP 16; TEMP 36.4; O2SAT 99
--- NOTE | 2025-02-20 00:43 | ADMGEN ---
This patient, Fannie Martin, was admitted to Medical Room 253-01. Patient/family oriented to hospital policies and general routines including ID bracelet, bed and alarms, visiting hours, pain management, procedures, bathroom and other care routines, personal items, smoking policy, room service/diet, and visiting hours. Information on how to activate the Rapid Response Team has been discussed. Patient/Family are encouraged to report perceived risks to care and to ask questions if they do not understand what they are told or what they should do.
[2025-02-20 04:24] VITALS: BP 98/64; PULSE 58; RESP 18; TEMP 36.8; O2SAT 99
--- NOTE | 2025-02-20 04:48 | P.HP_ITS ---
H&P: HPI History of Present Illness Date/Time: 02/20/25 04:48 Chief Complaint: Abdominal pain Narrative: This is a 29-year-old female patient who had a history of gestational diabetes. The patient delivered 1 daughter via on 01/10/2025. The patient came to the emergency room with complaints of right upper quadrant pain. The patient had severe pain prior to coming to the emergency room and when she did come to the emergency room her pain was nearly gone. She denies any fever chills. She denies any chest pain shortness a breath. Her white count was found to be 14.9. Blood pressure 122/74 and 98/64. Liver enzymes are elevated total bilirubin 3.7, AST 1210, ALT 868, alkaline phosphatase 185, lactic dry denies 1189, C reactive protein 2.5, B12 greater than 1000. Leukocyte esterase 1+. Serology was negative. Except for hep B still pending. Gallbladder ultrasound shows cholelithiasis with normal gallbladder thickness there is mild cholecystic fluid noted. CT of the abdomen pelvis was read as mildly thickened gallbladder wall with pericholecystic fluid suggestive of cholecystitis. GI and surgical consult was placed in the emergency room. As per ER note Consults: 2144- Spoke with general surgery, Dr. Kinney, who would like pt to be admitted to the hospital. He would like pt to remain NPO. Dr. Kinney would like a hepatitis panel drawn. He would also like a GI consult placed. Dr. Kinney does not think pt needs IV abx. 2244- Spoke with gastroenterology, Dr. Mahajan, who reports pt should have an MRCP in the morning. She should remain NPO, but can have LR infusing through her IV @ 100/hour. Dr. Mahajan agrees pt does not need IV abx. MDM: Results of imaging and lab work shared with patient. It was advised patient be admitted to the hospital for further evaluation and treatment. She continues to decline pain medication administration. Patient verbalized understanding and is in agreement with plan The patient is being admitted to observation status on the date of service of 02/20/2025. Review of Systems Constitutional: Constitutional: Reports as per HPI and Reports no additional constitutional complaints Eyes: Eyes: Reports as per HPI and Reports no additional eye complaints ENT: Reports system reviewed and no additional complaints, except as documented and Reports Normal hearing present Cardiovascular: Cardiovascular: Reports no additional cardiovascular complaints Respiratory: Respiratory: Reports as per HPI and Reports no additional respiratory complaints Gastrointestinal: Gastrointestinal: Reports as per HPI and Reports no additional gastrointestinal complaints Genitourinary: Genitourinary: Reports no additional female genitourinary complaints Musculoskeletal: Musculoskeletal: Reports no additional musculoskeletal complaints Integumentary/Breasts: Skin/Breast: Reports system reviewed and no additional complaints, except as docu Neurologic: Reports system reviewed and no additional complaints, except as documented and Reports Normal hearing present Psychiatric: Psychiatric: Reports no additional psychiatric complaints and Reports as per HPI Hematologic/Lymphatic: Hematologic/Lymphatic: Reports no additional hematologic/lymphatic complaints Allergic/Immunologic: Allergic/Immunologic: Reports no additional allergic/immunologic complaints REPLACED BY [facility] Past Medical History Medical History Gestational diabetes Surgical History Surgical History History of section, classical Family History Family History Mother Hypertension Preeclampsia Other Breast cancer Diabetes mellitus Social History Social History Social History: She is lives with her and her 1-month-old daughter. 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 She denies any alcohol or illicit drugs. Her is a durable power transactional attorney for healthcare. Code status: Full code Smoking status: Never smoker Alcohol intake: former Substance use: never Lack of Transportation: No Lack of Food: Never True Current Housing: I Have Housing Concerned About Future Housing: No Difficulty Paying Gas/Electric Bills: No Difficulty Paying for Meds: No Currently Unemployed: No Education: High School Diploma/GED Difficulty w/ Childcare or Family Care: No Living arrangements: with family Spiritual care concerns: No Meds Home Medications and Allergies Home Medications ?Medication ?Instructions ?Recorded ?Confirmed ?Type vit no.95-ferrous 1 tablet PO DAILY 12/28/24 02/24/25 History fumarate 28 mg-folic acid 800 mcg tablet () Allergies Allergy/AdvReac Type Severity Reaction Status Date / Time No Known Allergies Allergy Verified 02/24/25 15:27 Vital Signs Vital Signs - 24 hr 02/19/25 16:56 02/19/25 23:18 02/20/25 00:36 Temperature 97.5 F L 97.6 F Pulse Rate 79 85 75 Respiratory Rate 16 14 16 Blood Pressure 132/65 123/81 122/74 Pulse Oximetry 100 98 99 Oxygen Delivery 02/20/25 01:06 02/20/25 04:24 Temperature 98.2 F Pulse Rate 58 L Respiratory Rate 18 Blood Pressure 98/64 L Pulse Oximetry 99 Oxygen Delivery Room Air Exam Const: General: cooperative, healthy appearing, comfortable, no acute distr ess, well developed, awake, Physically active, average body habitus and well nourished Nutritional Appearance: average body habitus and well nourished Orientation/consciousness: oriented to person, oriented to place, oriented to time and patient oriented x3 Limitations: no limitations HENMT: Head: normal to inspection, No palpable skull fracture present, normocephalic, atraumatic and abrasion Ears: hearing grossly normal bilaterally and external ears normal Eyes: General: appearance normal, both eyes and all related structures Alignment and Position: alignment normal Periorbital: periorbital findings normal Chest: Chest palpation & inspection: normal inspection of the chest Resp: Effort & Inspection: normal respiratory effort Auscultation: clear to auscultation bilaterally Percussion: percussion normal Cardio: Palpation: normal PMI Rate: regular rate Rhythm: regular rhythm Heart sounds: S1 normal heart sound present and S2 normal heart sound present Peripheral pulses: Peripheral pulses 2+ throughout GI: Inspection: normal to inspection Percussion: Yes normal to percussion Auscultation: normal bowel sounds Rectal Exam: deferred Back/Spine/Pelvis: Back: no CVA tenderness Cervical Spine: cervical ROM normal Skin: General skin exam: normal color Lesions: no lesions Rashes: no rashes Trauma: no lacerations or abrasions Wounds: no wounds Hair: normal Nails: normal Other: C-sections to lower abdomen as well approximated and healing. No drainage noted. No erythema or tenderness noted. Neuro: General: oriented to person, oriented to place, oriented to time and patient oriented x3 Cranial nerves: Yes Normal hearing present Cognition (Neuro): normal cognition Speech: normal speech Gait exam (Neuro): Normal gait present Motor exam (neuro): 5/5 motor strength present throughout Sensory Exam: normal sensation Extrem: General: normal to inspection Right upper extremity: normal to inspection and shoulder/upper arm Left upper extremity: normal to inspection and shoulder/upper arm Right lower extremity: normal to inspection Left lower extremity: normal to inspection Psych: Appearance: grossly normal Mental Status: mental status grossly normal Speech and movement: Normal speech and movement present Affect: normal affect Attitude: cooperative Thought process: Normal thought process present Thought content: Yes Normal thought content present Insight: Good insight present (Psych) Judgement: Good judgement present (Psych) H&P: Results Labs Labs: Short CBC 02/19/25 Range/Units 20:10 WBC 8.6 (4.5-10.0) K/mm3 Hgb 13.1 D (12.0-15.0) g/dL Hct 40.1 (37.0-47.0) % Plt Count 366 (150-375) k/mm3 BMP 02/19/25 20:10 Sodium 136 L Potassium 4.0 Chloride 100 Carbon Dioxide 29 BUN 10 Creatinine 0.79 Glucose 130 H Calcium 10.8 H Liver Function 02/19/25 02/19/25 Range/Units 20:08 20:10 Total Bilirubin 3.7 H 3.7 H (0.2-1.3) mg/dL Direct Bilirubin 1.3 H (0-0.3) mg/dL AST 1177 H 1210 H (14-36) U/L ALT 848 H 868 H (6-35) U/L Alkaline Phosphatase 185 H 185 H (38-126) U/L Albumin 4.2 4.2 (3.5-5.1) g/dL Urine 02/19/25 Range/Units 20:10 Urine Color Dark yellow (Yellow) Urine Appearance Clear (Clear) Urine pH 5.0 (5.0-9.0) Ur Specific [place] 1.024 (1.001-1.035) Urine Protein Negative (Negative) mg/dL Urine Glucose (UA) Negative (Negative) mg/dL Imaging CT scan - abdomen: Radiologist's impression: ITS Impressions Abdomen/Pelvis CT 02/19/25 20:54 IMPRESSION: Mildly thickened gallbladder wall with pericholecystic fluid suggestive of cholecystitis. Correlate clinically and if indicated follow-up ultrasound. All CT scans at this facility are performed using low dose modulation techniques as appropriate to perform exam including the following: automated exposure control; use of iterative reconstruction technique; adjustment of the mA and/or kV according to patient size (this includes techniques or standardized protocols for targeted exams where dose is matched to indication/reason for exam). Upper Quadrant Ultrasound 02/19/25 21:36 IMPRESSION: Cholelithiasis with normal gallbladder wall thickness. There is mild pericholecystic fluid. Assessment and Plan Assessment and plan (1) Cholelithiasis: Code(s): K80.20 - Calculus of gallbladder without cholecystitis without obstruction Status: Acute Assessment and Plan: -surgery and GI have been consulted. -the patient is made NPO for further testing. -continue with IV fluids. -patient has elevation in liver enzymes. Total bilirubin 3.7, direct bilirubin 1.3, AST 1210, ALT 868, alkaline phosphatase 185, lactic D hydration Pete is 1189, and C reactive protein is 2.5. -the patient does not appear septic and has no leukocytosis. -her abdominal exam is negative. She denies any tenderness with light and deep palpation to right upper quadrant. -the patient stated that her at abdominal discomfort has been relieved without any medication. -MRCP has been ordered. -continue to monitor liver enzymes.(hepatitis B labs are pending.) -GI has been consulted. -per ED note, GI and surgical consult do not recommend any antibiotics at this time. I discussed this with the patient and she is currently breast-feeding and would like to hold off on any antibiotics until she speaks with surgery-GI. (2) Elevated liver enzymes: Code(s): R74.8 - Abnormal levels of other serum enzymes Status: Acute Assessment and Plan: -the patient could have possibly passed a gallbladder stone. -please continue to trend labs. (3) Elevated blood sugar: Code(s): R73.9 - Hyperglycemia, unspecified Status: Acute Assessment and Plan: -the patient had induced are gestational diabetes. She was on metformin at the time as well as insulin. She is no longer on any of those medications. Her random blood sugar was 130. Review fasting blood sugar and check A1c. Quality VTE Prophylaxis VTE prophylaxis: mechanical ordered
[2025-02-20 05:28] LABS: Hematocrit 36.9 % (37.0-47.0); Hemoglobin 11.7 g/dL (12.0-15.0); Mean Corpuscular HGB Conc 31.7 g/dl (32-36); Mean Corpuscular Hemoglobin 26.7 pg (26-34); Mean Corpuscular Volume 84.2 fl (80-100); Platelet Count Result 303 k/mm3 (150-375); Red Blood Count 4.38 M/mm3 (4.2-5.4); White Blood Count 7.3 K/mm3 (4.5-10.0)
[2025-02-20 05:46] LABS: Hemoglobin A1C 5.6 % (<5.7)
[2025-02-20 05:47] LABS: Anion Gap 7 mmol/L (4-12); Blood Urea Nitrogen 9 mg/dL (7-17); Calcium 9.2 mg/dL (8.4-10.2); Carbon Dioxide 26 mmol/L (22-30); Chloride 103 mmol/L (98-107); Estimated CRCL calculation 104 ml/min; Estimated Glomerular Filt Rate > 60; Glucose 108 mg/dL (65-110); Potassium 3.9 mmol/L (3.4-5.0); Sodium 136 mmol/L (137-145)
--- NOTE | 2025-02-20 09:31 | PCDIET ---
pt is using breast pump to expel milk, 4 bottles taken to OB dept to be placed in refridgerator
[2025-02-20 09:40] LABS: Alanine Aminotransferase 748 U/L (6-35); Albumin Level 3.7 g/dL (3.5-5.1); Alkaline Phosphatase 185 U/L (38-126); Bilirubin,Total 3.8 mg/dL (0.2-1.3); Total Protein 6.8 g/dL (6.3-8.2)
[2025-02-20 09:53] LABS: Aspartate Amino Transferase 764 U/L (14-36)
--- NOTE | 2025-02-20 11:51 | PM.CNGS ---
Assessment and Plan Assessment and plan (1) Cholelithiasis: Code(s): K80.20 - Calculus of gallbladder without cholecystitis without obstruction Status: Acute Assessment and Plan: Patient presents with upper abdominal pain radiating to her back x [address] showed gallbladder wall thickening and pericholecystic fluid. US showed cholelithiasis and mild pericholecystic fluid, but no findings of acute cholecystitis. Her WBC count was normal, but her LFTs were significantly elevated. Would not expect her AST and ALT to be that high from acute cholecystitis alone. Her bilirubin is also high at 3.7, which raises concern for a common bile duct stone or she may have passed a stone. Will trend labs and await MRCP results. She will remain NPO for now for the MRCP. No indication for urgent cholecystectomy, but we will follow along to determine the need for surgery depending on further workup. (2) Elevated liver enzymes: Code(s): R74.8 - Abnormal levels of other serum enzymes Status: Acute Assessment and Plan: The patient's liver enzymes were elevated on admission with total bilirubin of 3.7, AST 1210, ALT 868, and alk phos 185. Suspicion for acute hepatitis given her significantly elevated AST and ALT. Hepatitis panel thus far is negative. Her total bilirubin is also elevated and there is certainly concern for choledocholithiasis and/or cholangitis. Will trend labs and add a hepatic panel to this morning's labs. MRCP has been ordered to further evaluate. GI has been consulted. (3) Obesity: Code(s): E66.9 - Obesity, unspecified Status: Acute Plan I have discussed the patient's case and plan of care with Dr. Kinney. History of Present Illness Consult details Consult date: 02/20/25 Reason for consult: other (Cholelithiasis) Requesting physician: Jaqui Anand MD Narrative: This is a 29-year-old female with a history of gestational diabetes and is almost 6 weeks from a delivery on 01/11/25. We have been asked to see the patient in surgical consultation for cholelithiasis. She reports having a sudden onset of epigastric pain that radiating to her mid back after eating dinner 2 nights ago. She developed nausea and vomiting. She vomited 3-4 times through the night and reports it was undigested food and the last emesis was bilious-appearing. She had someone take her to the ER yesterday and by the time she was on her way to the ED, her pain was actually improving. She still came in to be evaluated as she has never had this pain before and was concerned about her gallbladder with the recent . Vital signs were table. Labs showed WBC 14.9, total bilirubin 3.7, AST 1210, ALT 868, alkaline phosphatase 185. Lipase normal. Hepatitis panel negative. CT scan of the abdomen and pelvis showed gallbladder wall thickening and pericholecystic fluid concerning for cholecystitis, but no gallstones noted on CT. RUQ US showed cholelithiasis with mild pericholecystic fluid but no wall thickening or other acute findings. She was admitted for elevated liver enzymes, cholelithiasis, and MRCP was ordered for today. GI also consulted from the ER. Patient deneis previous abdominal surgery other than . No recent travel or close contacts with similar symptoms. Her abdominal pain has resolved but she still has mild mid back pain. Review of Systems Review of Systems: All systems reviewed & are unremarkable except as noted in HPI and below PMFSH Past Medical History Medical History Gestational diabetes Surgical History Surgical History History of section, classical Family History Family History Mother Hypertension Preeclampsia Other Breast cancer Diabetes mellitus Social History Social History Social History: She is lives with her and her 1-month-old daughter. 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 She denies any alcohol or illicit drugs. Her is a durable power electrical and instrument engineer for healthcare. Code status: Full code Smoking status: Never smoker Alcohol intake: former Substance use: never Lack of Transportation: No Lack of Food: Never True Current Housing: I Have Housing Concerned About Future Housing: No Difficulty Paying Gas/Electric Bills: No Difficulty Paying for Meds: No Currently Unemployed: No Education: High School Diploma/GED Difficulty w/ Childcare or Family Care: No Spiritual care concerns: No Meds Home Medications and Allergies Home Medications ?Medication ?Instructions ?Recorded ?Confirmed ?Type vit no.95-ferrous 1 tablet PO DAILY 12/28/24 02/20/25 History fumarate 28 mg-folic acid 800 mcg tablet () Allergies Allergy/AdvReac Type Severity Reaction Status Date / Time No Known Allergies Allergy Verified 02/20/25 08:51 Vital Signs Vital Signs - 24 hr 02/19/25 16:56 02/19/25 23:18 02/20/25 00:36 Temperature 97.5 F L 97.6 F Pulse Rate 79 85 75 Respiratory Rate 16 14 16 Blood Pressure 132/65 123/81 122/74 Pulse Oximetry 100 98 99 Oxygen Delivery 02/20/25 01:06 02/20/25 04:24 02/20/25 08:40 Temperature 98.2 F Pulse Rate 58 L Respiratory Rate 18 Blood Pressure 98/64 L Pulse Oximetry 99 Oxygen Delivery Room Air Room Air Exam Const: General: comfortable and no acute distress Nutritional Appearance: overweight Orientation/consciousness: patient oriented x3 HENMT: Head: normocephalic and atraumatic Ears: hearing grossly normal bilaterally Mouth: Yes moist mucous membranes Eyes: General: appearance normal, both eyes and all related structures Pupils: Equal, round and reactive pupils present Neck: Neck: normal visual inspection and full ROM Resp: Effort & Inspection: no respiratory distress Auscultation: clear to auscultation bilaterally Cardio: Rate: regular rate Rhythm: regular rhythm Peripheral pulses: Peripheral pulses 2+ throughout GI: Inspection: non-distended, scar (Pfannenstiel incision well healed) and no visible herniation GI Palp: Yes Soft to palpation, No Tenderness to palpation present (GI), No Guarding due to palpation present (GI), Yes No hepatosplenomegaly present and No Rebound tenderness present Auscultation: normal bowel sounds Rectal Exam: deferred Skin: General skin exam: normal color Neuro: General: moves all extremities and no focal motor deficits Speech: normal speech Motor exam (neuro): 5/5 motor strength present throughout Extrem: General: normal to inspection and no edema Psych: Mental Status: mental status grossly normal Attitude: cooperative Insight: Good insight present (Psych) Judgement: Good judgement present (Psych) Results Labs 02/20/25 04:55 02/20/25 04:55 Labs: Abnormal lab results 02/19/25 02/19/25 02/19/25 Range/Units 20:08 20:09 20:10 Hgb (12.0-15.0) g/dL Hct (37.0-47.0) % MCHC (32-36) g/dl Sodium 136 L (137-145) mmol/L Glucose 130 H (65-110) mg/dL Uric Acid 8.2 H (2.5-7.5) mg/dL Calcium 10.8 H (8.4-10.2) mg/dL Total Bilirubin 3.7 H 3.7 H (0.2-1.3) mg/dL Direct Bilirubin 1.3 H (0-0.3) mg/dL AST 1177 H 1210 H (14-36) U/L ALT 848 H 868 H (6-35) U/L Alkaline Phosphatase 185 H 185 H (38-126) U/L Lactate Dehydrogenase 1189 H (120-246) U/L C-Reactive Protein 2.5 H (<1.0) mg/dL Vitamin B12 > 1000.0 H (239-931) pg/mL Folate > 20.0 H (2.76->20) ng/mL Urine Ketones Trace H (Negative) mg/dL Urine Bilirubin 2+ H (Negative) Leukocyte Esterase Rfl 1+ H (Negative) CHRISTOPHER/UL Urine RBC 3-5 H (0-2) /hpf 02/20/25 Range/Units 04:55 Hgb 11.7 L (12.0-15.0) g/dL Hct 36.9 L (37.0-47.0) % MCHC 31.7 L (32-36) g/dl Sodium 136 L (137-145) mmol/L Glucose (65-110) mg/dL Uric Acid (2.5-7.5) mg/dL Calcium (8.4-10.2) mg/dL Total Bilirubin 3.8 H (0.2-1.3) mg/dL Direct Bilirubin 1.3 H (0-0.3) mg/dL AST 764 H (14-36) U/L ALT 748 H (6-35) U/L Alkaline Phosphatase 185 H (38-126) U/L Lactate Dehydrogenase (120-246) U/L C-Reactive Protein (<1.0) mg/dL Vitamin B12 (239-931) pg/mL Folate (2.76->20) ng/mL Urine Ketones (Negative) mg/dL Urine Bilirubin (Negative) Leukocyte Esterase Rfl (Negative) CHRISTOPHER/UL Urine RBC (0-2) /hpf Diabetes panel 02/19/25 02/19/25 02/20/25 Range/Units 20:08 20:10 04:51 Sodium 136 L (137-145) mmol/L Potassium 4.0 (3.4-5.0) mmol/L Chloride 100 (98-107) mmol/L Carbon Dioxide 29 (22-30) mmol/L BUN 10 (7-17) mg/dL Creatinine 0.79 (0.7-1.0) mg/dL Glucose 130 H (65-110) mg/dL Hemoglobin A1c 5.6 (<5.7) % Calcium 10.8 H (8.4-10.2) mg/dL AST 1177 H 1210 H (14-36) U/L ALT 848 H 868 H (6-35) U/L Alkaline Phosphatase 185 H 185 H (38-126) U/L Total Protein 7.5 7.5 (6.3-8.2) g/dL Albumin 4.2 4.2 (3.5-5.1) g/dL 02/20/25 Range/Units 04:55 Sodium 136 L (137-145) mmol/L Potassium 3.9 (3.4-5.0) mmol/L Chloride 103 (98-107) mmol/L Carbon Dioxide 26 (22-30) mmol/L BUN 9 (7-17) mg/dL Creatinine 0.81 (0.7-1.0) mg/dL Glucose 108 (65-110) mg/dL Hemoglobin A1c (<5.7) % Calcium 9.2 (8.4-10.2) mg/dL AST 764 H (14-36) U/L ALT 748 H (6-35) U/L Alkaline Phosphatase 185 H (38-126) U/L Total Protein 6.8 (6.3-8.2) g/dL Albumin 3.7 (3.5-5.1) g/dL Calcium panel 02/19/25 02/19/25 02/20/25 Range/Units 20:08 20:10 04:55 Calcium 10.8 H 9.2 (8.4-10.2) mg/dL Albumin 4.2 4.2 3.7 (3.5-5.1) g/dL Pituitary panel 02/19/25 02/20/25 Range/Units 20:10 04:55 Sodium 136 L 136 L (137-145) mmol/L Potassium 4.0 3.9 (3.4-5.0) mmol/L Chloride 100 103 (98-107) mmol/L Carbon Dioxide 29 26 (22-30) mmol/L BUN 10 9 (7-17) mg/dL Creatinine 0.79 0.81 (0.7-1.0) mg/dL Glucose 130 H 108 (65-110) mg/dL Calcium 10.8 H 9.2 (8.4-10.2) mg/dL Adrenal panel 02/19/25 02/19/25 02/20/25 Range/Units 20:08 20:10 04:55 Sodium 136 L 136 L (137-145) mmol/L Potassium 4.0 3.9 (3.4-5.0) mmol/L Chloride 100 103 (98-107) mmol/L Carbon Dioxide 29 26 (22-30) mmol/L BUN 10 9 (7-17) mg/dL Creatinine 0.79 0.81 (0.7-1.0) mg/dL Glucose 130 H 108 (65-110) mg/dL Calcium 10.8 H 9.2 (8.4-10.2) mg/dL Total Bilirubin 3.7 H 3.7 H 3.8 H (0.2-1.3) mg/dL AST 1177 H 1210 H 764 H (14-36) U/L ALT 848 H 868 H 748 H (6-35) U/L Alkaline Phosphatase 185 H 185 H 185 H (38-126) U/L Total Protein 7.5 7.5 6.8 (6.3-8.2) g/dL Albumin 4.2 4.2 3.7 (3.5-5.1) g/dL All other labs normal. Imaging Additional studies: ITS Impressions Abdomen/Pelvis CT 02/19/25 20:54 IMPRESSION: Mildly thickened gallbladder wall with pericholecystic fluid suggestive of cholecystitis. Correlate clinically and if indicated follow-up ultrasound. All CT scans at this facility are performed using low dose modulation techniques as appropriate to perform exam including the following: automated exposure control; use of iterative reconstruction technique; adjustment of the mA and/or kV according to patient size (this includes techniques or standardized protocols for targeted exams where dose is matched to indication/reason for exam). Upper Quadrant Ultrasound 02/19/25 21:36 IMPRESSION: Cholelithiasis with normal gallbladder wall thickness. There is mild pericholecystic fluid.
[2025-02-20 12:45] LABS: Hematocrit 37.2 % (37.0-47.0); Hemoglobin 12.0 g/dL (12.0-15.0)
--- NOTE | 2025-02-20 12:53 | PM.EVENT ---
Event Note Event Note Event Note: Patient had been seen and assessed by previous provider same day on follow-up assessment patient just returned from MRCP for further evaluation of possible bile duct stone or recent passing of bile duct stone. On initial admission patient's liver enzyme was significantly elevated been trending down. General surgery had been consulted for further evaluation and possible cholecystectomy. Patient with normal WBC and no fevers or chills reported. U/S had showed cholelithiasis with normal gallbladder wall thickness mild pericholecystic fluid. MRCP completed showing cholelithiasis with pericholecystic fluid is slightly distended common bile duct probable ERCP/cholecystectomy needed wait for surgeries recommendations. Also noted was fatty liver changes and hepatomegaly lipid panel ordered, hepatitis panel pending. Patient no acute distress and denied abdominal tenderness with mild back pain, no fevers chills. Patient with recent 5 weeks prior no complications. Of note patient is currently .
[2025-02-20 13:13] LABS: Cholesterol 190 mg/dL (0-200); HDL Direct 45 mg/dL; Triglycerides 103 mg/dL (<150)
[2025-02-20] MEDS: FAMOTIDINE 20 MG/2 ML VIAL IV PUSH (14:41)
[2025-02-20 14:51] VITALS: BP 122/70; PULSE 64; RESP 18; TEMP 36.3; O2SAT 98
--- NOTE | 2025-02-20 15:06 | WPDGICN ---
Assessment and Plan Assessment and plan (1) Choledocholithiasis: Code(s): K80.50 - Calculus of bile duct without cholangitis or cholecystitis without obstruction Status: Acute Assessment and Plan: The patient has biochemical evidence of stone passage from the gallbladder to the common bile duct Based on dramatically elevated transaminases in the face of typical biliary abdominal pain. Even though transaminase levels are less than at admission, the MRCP shows a possible common bile duct stone. Therefore, prior to elective cholecystectomy, will do an ERCP tomorrow. GI Consult Note Consult date/time: 02/20/25 15:06 Reason for consult: Cholelithiasis -increased transaminases levels HPI: Fannie Martin is a 29 year old female who was in her usual state of health until 1 day before admission when she started to have a moderate, in crescendo epigastric pain radiating to the back that lasted all night. At arrival to Emergency Room she was noticed to have the following laboratory values: AST 1210, ALT 868, bilirubin 3.7, lipase 43, alkaline phosphatase 185. An ultrasound showed cholelithiasis with normal gallbladder thickness but mild pericholecystic fluid. A CT scan showed essentially the same findings. She is currently asymptomatic, and an MRCP showed a slightly dilated common bile duct, 6 mm and a possible presence of a small stone in the distal common bile duct could not be ruled out. Today's laboratory data show AST 764, ALT 748, bilirubin 3.8. Review of Systems Review of Systems: All systems reviewed & are unremarkable except as noted in HPI and below [facility] Past Medical History Medical History Gestational diabetes Surgical History Surgical History History of section, classical Family History Family History Mother Hypertension Preeclampsia Other Breast cancer Diabetes mellitus Social History Social History Social History: She is lives with her and her 1-month-old daughter. 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 She denies any alcohol or illicit drugs. 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 Code status: Full code Smoking status: Never smoker Alcohol intake: former Substance use: never Lack of Transportation: No Lack of Food: Never True Current Housing: I Have Housing Concerned About Future Housing: No Difficulty Paying Gas/Electric Bills: No Difficulty Paying for Meds: No Currently Unemployed: No Education: High School Diploma/GED Difficulty w/ Childcare or Family Care: No Spiritual care concerns: No Meds Home Medications and Allergies Home Medications ?Medication ?Instructions ?Recorded ?Confirmed ?Type vit no.95-ferrous 1 tablet PO DAILY 12/28/24 02/20/25 History fumarate 28 mg-folic acid 800 mcg tablet () Allergies Allergy/AdvReac Type Severity Reaction Status Date / Time No Known Allergies Allergy Verified 02/20/25 08:51 Vital Signs Vital Signs - 24 hr 02/19/25 16:56 02/19/25 23:18 02/20/25 00:36 Temperature 97.5 F L 97.6 F Pulse Rate 79 85 75 Respiratory Rate 16 14 16 Blood Pressure 132/65 123/81 122/74 Pulse Oximetry 100 98 99 Oxygen Delivery 02/20/25 01:06 02/20/25 04:24 02/20/25 08:40 Temperature 98.2 F Pulse Rate 58 L Respiratory Rate 18 Blood Pressure 98/64 L Pulse Oximetry 99 Oxygen Delivery Room Air Room Air Exam Const: General: cooperative and healthy appearing Resp: Effort & Inspection: normal respiratory effort and able to speak in complete sentences Auscultation: clear to auscultation bilaterally Cardio: Rate: regular rate Rhythm: regular rhythm GI: Inspection: normal to inspection GI Palp: No No hepatosplenomegaly present Auscultation: normal bowel sounds Rectal Exam: deferred Skin: General skin exam: normal color Psych: Appearance: grossly normal Mental Status: mental status grossly normal Results Labs 02/20/25 12:18 02/20/25 04:55 Labs: Short CBC 02/19/25 02/20/25 02/20/25 Range/Units 20:10 04:55 12:18 WBC 8.6 7.3 (4.5-10.0) K/mm3 Hgb 13.1 D 11.7 L 12.0 (12.0-15.0) g/dL Hct 40.1 36.9 L 37.2 (37.0-47.0) % Plt Count 366 303 (150-375) k/mm3 BMP 02/19/25 02/20/25 20:10 04:55 Sodium 136 L 136 L Potassium 4.0 3.9 Chloride 100 103 Carbon Dioxide 29 26 BUN 10 9 Creatinine 0.79 0.81 Glucose 130 H 108 Calcium 10.8 H 9.2 Liver Function 02/19/25 02/19/25 02/20/25 Range/Units 20:08 20:10 04:55 Total Bilirubin 3.7 H 3.7 H 3.8 H (0.2-1.3) mg/dL Direct Bilirubin 1.3 H 1.3 H (0-0.3) mg/dL AST 1177 H 1210 H 764 H (14-36) U/L ALT 848 H 868 H 748 H (6-35) U/L Alkaline Phosphatase 185 H 185 H 185 H (38-126) U/L Albumin 4.2 4.2 3.7 (3.5-5.1) g/dL Urine 02/19/25 Range/Units 20:10 Urine Color Dark yellow (Yellow) Urine Appearance Clear (Clear) Urine pH 5.0 (5.0-9.0) Ur Specific [place] 1.024 (1.001-1.035) Urine Protein Negative (Negative) mg/dL Urine Glucose (UA) Negative (Negative) mg/dL
--- OUTSIDE RECORDS SUMMARY | 2025-02-20 15:16 | XMS_ITS | Encounter Summary ---
Author Organization [facility] Address [address] [place] [address] Care Team Providers Care Retail Assistant Store Manager Name Role Phone Unavailable Primary Care Provider Unavailabl e Encounter Details Date Type Department Care Team (Late st Contact Info) Description 02/18/2025 External Device Data [facility] ABSTRACTION Provider, Abstract NO ADDRESS ON FILE Social History Tobacco Use Types Packs/Day Years Used Date Smoking Tobacco: Never Comments No Sex and Gender Information Value Date Recorded Sex Assigned at Not on file Legal Sex Female 8:09 AM CDT Gender Identity Not on file Sexual Orientation Not on file documented as of this encounter Plan of Treatment Not on file documented as of this encounter Visit Diagnoses Not on filedocumented in this encounter
--- OUTSIDE RECORDS SUMMARY | 2025-02-20 15:16 | XMS_ITS | Clinical Summary ---
Author Organization [facility] Address [address] [place] [address] Phone Care Team Providers Care Speech Language Pathologist Name Role Phone Unavailable Primary Care Provider Unavailabl e Allergies No known active allergies Medications Dexcom G7 Sensor DeviceIndicatio ns:Pre-existing type 2 diabetes mellitus during , antepartum Change sensor every 10 days as directed 3 Each 9 5 Active vit/iron fum/folic ac ( 1+1 ORAL) Active aspirin (ECOTRIN EC) 81 mg Tablet, Delayed Release (E.C.)Indicatio ns:Supervision of high risk in second trimester,Diabe kamilah mellitus affecting in second trimester,Other obesity affecting in second trimester Take 2 Tablets (162 mg) by mouth daily. 60 Tablet 6 5 Active Insulin [place], Disposable, (BD Christina 2nd Gen Pen Needle) 32 gauge x 5/32 NeedleIndicatio ns:Pre-existing type 2 diabetes mellitus during , antepartum Use 4 pen needles per day with insulin injection 200 Each 6 5 Active metFORMIN (GLUCOPHAGE XR) 500 mg Extended Release 24 hour tabletIndicatio ns:Pre-existing type 2 diabetes mellitus during in third trimester Take 1 Tablet (500 mg) by mouth 2 times daily with meals. Increase to 2 tabs po BID in 3-5 days 120 Tablet 3 5 Active insulin lispro (HumaLOG KwikPen Insulin) 100 unit/mL pen syringeIndicati ons:Pre-existin g type 2 diabetes mellitus during in third trimester Inject 44 Units by subcutaneous injection daily before breakfast AND 80 Units daily before lunch AND 102 Units daily before supper. 60 mL 2 Active insulin glargine U-300 conc (Toujeo Max U-300 SoloStar) 300 unit/mL (3 mL) Insulin PenIndications: Pre-existing type 2 diabetes mellitus during in third trimester Inject 120 Units by subcutaneous injection daily at bedtime. 12 mL 2 Active Active Problems Problem Noted Date Diagnosed Date Class 3 obesity 12/27/2024 Pre-existing type 2 diabetes mellitus during in third trimester 11/06/2024 Pre-existing type 2 diabetes mellitus in in second trimester 09/23/2024 Diabetes mellitus 08/16/2024 Overview (08/16/2024): NPH at night - 26u Diabetes mellitus affecting in second trimester 08/16/2024 Obesity complicating 08/16/2024 Supervision of high risk in [facility] 07/31/2024 Encounters Date Type Department Care Team Description 02/18/2025 External Device Data STL ABSTRACTION Provider, Abstract 02/12/2025 External Device Data [facility] ABSTRACTION Provider, Abstract 02/12/2025 External Device Data STL ABSTRACTION Provider, Abstract 01/09/2025 3:28 PM CDT - 01/09/2025 11:59 PM CDT Hospital Encounter [facility] Maternal and Ground [place] [address] [place] [address] Megan Allan MD Discharge Disposition: Home or Self Care 01/09/2025 Chart Note [facility] Maternal and Medicine - Medical [place] [address] [place] [address] Diabetes 01/06/2025 3:26 PM CDT - 01/06/2025 11:59 PM CDT Hospital Encounter [facility] Maternal and Ground Floor [address] [place] [address] Megan Allan MD Discharge Disposition: Home or Self Care 01/03/2025 Chart Note [facility] Maternal and Medicine - Medical [place] [address] [place] [address] Diabetes 01/03/2025 Chart Note [facility] Maternal and Medicine - Medical [place] [address] [place] [address] Isha Reeder NP Erroneous encounter-disregard 01/02/2025 3:41 PM CDT - 01/02/2025 11:59 PM CDT Hospital [facility] Ground [facility] [address] [place] [address] Megan Allan MD Discharge Disposition: Home or Self Care 12/31/2024 External Device Data STL ABSTRACTION Provider, Abstract 12/30/2024 3:40 PM CDT - 12/30/2024 11:59 PM CDT Hospital [facility] M[facility] and Ground [facility] [address] [place] [phone] Megan Allan MD Discharge Disposition: Home or Self Care 12/27/2024 9:30 AM CDT visit [facility] Maternal Medicine [address] [place] [place] [address] Isha Reeder NP Pre-existing type 2 diabetes mellitus during in third trimester (Primary Dx); Class 3 obesity (CMS/HCC); 35 weeks gestation of 12/27/2024 Chart Note [facility] Maternal Medicine [address] [address] [place] [address] Isha Reeder NP Diabetes 12/26/2024 2:50 PM CDT - 12/26/2024 11:59 PM CDT Hospital Encounter [facility] M[facility] and Ground Floor [address] [place] [address] Matt Landin MD Discharge Disposition: Home or Self Care 12/23/2024 2:50 PM CDT - 12/23/2024 11:59 PM CDT Hospital Encounter [facility] Maternal and Ground Floor [address] [place] [phone] Megan Allan MD Discharge Disposition: Home or Self Care 12/23/2024 2:49 PM CDT - 12/23/2024 11:59 PM CDT Hospital Encounter [facility] Maternal and Ground Floor [address] [place] [phone] Matt Landin MD Discharge Disposition: Home or Self Care 12/20/2024 Chart Note [facility] Maternal and Medicine - Medical [place] [address] [place] [address] Isha Reeder NP Gestational Diabetes 12/19/2024 2:51 PM CDT - 12/19/2024 11:59 PM CDT Hospital Encounter [facility] Maternal and Ground Floor [address] [place] [phone] Matt Landin MD Discharge Disposition: Home or Self Care 12/17/2024 2:08 PM CDT - 12/17/2024 11:59 PM CDT Hospital Encounter [facility] Maternal and Ground [facility] [address] [place] [phone] Matt Landin MD Discharge Disposition: Home or Self Care 12/17/2024 External Device Data STL ABSTRACTION Provider, Abstract 12/12/2024 3:07 PM CDT - 12/12/2024 11:59 PM CDT Hospital Encounter [facility] Maternal and Ground Floor [address] [place] [phone] Matt Landin MD Discharge Disposition: Home or Self Care 12/12/2024 Orders Only [facility] Maternal and Medicine - Medical [place] [address] [place] [address] Albina Davenport MD Pre-existing type 2 diabetes mellitus during , antepartum (Primary Dx) 12/12/2024 Chart Note [facility] Maternal and Medicine - Medical [place] [address] [place] [address] Isha Reeder NP Diabetes 12/09/2024 3:05 PM CDT - 12/09/2024 11:59 PM CDT Hospital Encounter [facility] Maternal and Ground Floor [address] [place] [address] Matt Landin MD Discharge Disposition: Home or Self Care 12/06/2024 9:00 AM CDT - 12/06/2024 11:59 PM CDT Hospital Encounter [facility] Maternal and Ground Floor [address] [place] [address] Matt Landin MD Discharge Disposition: Home or Self Care 12/05/2024 Abstract [facility] Maternal and Medicine - Medical [place] [address] [place] [address] 12/05/2024 Chart Note [facility] Maternal and Medicine - Medical [place] [address] [place] [phone] Matt Landin MD Diabetes 12/04/2024 External Device Data STL ABSTRACTION Provider, Abstract 11/29/2024 8:45 AM CDT visit [facility] Maternal Medicine [address] [place] [address] Isha Reeder NP Pre-existing type 2 diabetes mellitus during in third trimester (Primary Dx); Obesity affecting in third trimester, unspecified obesity type; 31 weeks gestation of 11/29/2024 Chart Note [facility] Maternal Medicine [address] [place] [phone] Isha Reeder NP Diabetes 11/27/2024 3:00 PM CDT - 11/27/2024 11:59 PM CDT Hospital Encounter [facility] M[facility] and Ground Floor [address] [place] [address] Matt Landin MD Discharge Disposition: Home or Self Care 11/26/2024 External Device Data STL ABSTRACTION Provider, Abstract 11/21/2024 Chart Note [facility] Maternal Medicine [address] [address] [facility] [address] [place] [address] Agustin Wu MD Diabetes from Last 3 Months Social History Tobacco Use Types Packs/Day Years Used Date Smoking Tobacco: Never Tobacco Cessation:Counseling Given: Not Answered Comments No Sex and Gender Information Value [...] 12/27/2024 9:32 AM CDT Plan of Treatment Health Maintenance Due Date Last Done Comments [...] SMEAR 05/29/2027 05/29/2024 INFLUENZA VACCINE Completed 01/03/2025 Procedures Procedure Name Priority Date/Time Associated Diagnosis Comments US OB LIMITED + NST Routine 01/09/2025 4 :40 PM CDT Type 2 diabetes mellitus complicating , antepartum US OB LIMITED + NST Routine 01/08/2025 7 :24 AM CDT Body mass index (BMI) 40.0-44.9, adult (CMS/HCC) US OB LIMITED + NST Routine 01/06/2025 4 :16 PM CDT Type 2 diabetes mellitus complicating , antepartum US OB LIMITED + NST Routine 01/02/2025 4 :38 PM CDT Type 2 diabetes mellitus complicating , antepartum US OB LIMITED + NST Routine 12/30/2024 4 :34 PM CDT Type 2 diabetes mellitus complicating , antepartum US OB LIMITED + NST Routine 12/26/2024 4 [...] Body mass index (BMI) 40.0-44.9, adult (CMS/HCC) from Last 3 Months Results * US OB LIMITED + NST (01/09/2025 4:40 PM CDT) Only the most recent of10 resultswithin the time period is included. Anatomical Region Laterality Modality Pelvis Ultrasound 01/09/2025 3:48 PM CDT Narrative 01/09/2025 4:44 PM CDT MODIFIED [facility] STUDY ----- Pat. Name: DEBORAH [place] Study Date: 01/09/2025 3:48pm Pat. NO: [id number] Referring MD: LUCIANO FRANCISCO MD Site: [facility] Sulfonator Operator: : 1995 Age: 29 ----- INDICATION ----- Maternal Obesity (BMI>40) Complicating Pre-existing Type 2 Diabetes Mellitus CODING ----- Diagnoses Z3A.37: Weeks of gestation O99.213: Obesity complicating O24.113: Pre-existing type 2 diabetes mellitus, in Procedures 26055: NST/ monitoring 38112: Limited 1 or more - MALI, FHR, [...] 01/09/2025 MODIFIED [facility] STUDY ----- Pat. Name:Lucila [place] Date:01/09/2025 3:48pm Pat. NO: [id number] MD:LUCIANO FRANCISCO [facility]1995Age:29 ----- INDICATION ----- Maternal Obesity (BMI>40) Complicating Pre-existing Type 2 Diabetes Mellitus CODING ----- Diagnoses Z3A.37: Weeks of gestation O99.213: Obesity complicating O24.113: Pre-existing type 2 diabetes mellitus, inpregnancy Procedures 68680: NST/ monitoring 55238: Limited 1 or more - MALI, FHR, position(modifier 59 for MBPP) HISTORY ----- OB History 1 MATERNAL ASSESSMENT ----- Physical Exam Blood pressure 129/56 mmHg. Heart rate 104 bpm METHOD ----- EFM, Transabdominal ultrasound examination. View: Good view ----- [place] . Number of fetuses: 1 DATING ----- GA by prior [id number] w + 1 d GEORGE by prior [...] 3:59 PM CDT) Only the most recent of2 resultswithin the time period is included. Anatomical Region Laterality Modality Pelvis Ultrasound 12/23/2024 3:38 PM CDT Narrative 12/23/2024 3:56 PM CDT ST[facility] FOLLOW UP ----- Pat. Name: DEBORAH [place] Study Date: 12/23/2024 3:38pm Pat. NO: [id number] Referring MD: LUCIANO FRANCISCO MD Site: [facility] Sulfonator Operator: Anastasiia Montoya RDMS : 1995 Age: 29 ----- INDICATION ----- Maternal Obesity (BMI>40) Complicating Pre-existing Type 2 Diabetes Mellitus Screening Follow-Up CODING ----- Diagnoses Z3A.34: Weeks of gestation Z36.2: Encounter for other screening follow-up O99.213: Obesity complicating O24.113: Pre-existing type 2 diabetes mellitus, in Procedures 25746: Ultrasound, uterus, real time with image documentation, [...] 5 lb 14 oz EFW by Had[facility] ([id number]) Head / Face / Neck Biometry: Supervisor Twisting Department 4.6 mm Extremities / Bony Struc Biometry: [...] and date of were verified by the clinical genetics laboratory chief prior to the exam IMPRESSION ----- [place] [...] Note Megan Allan MD - 12/23/2024 ST FOLLOW UP ----- Pat. Name:Lucila [place] Date:12/23/2024 3:38pm Pat. NO: [id number] MD:LUCIANO FRANCISCO [facility]:Anastasiia Montoya RDMS :1995Age:29 ----- INDICATION ----- Maternal Obesity (BMI>40) Complicating Pre-existing Type 2 Diabetes Mellitus Screening Follow-Up CODING ----- Diagnoses Z3A.34: Weeks of gestation Z36.2: Encounter for other screeningfollow-up O99.213: Obesity complicating O24.113: Pre-existing type 2 diabetes mellitus, inpregnancy Procedures 88933: Ultrasound, uterus, real time withimage documentation, follow up, transabdominal approach per fetus HISTORY ----- OB History 1 MATERNAL ASSESSMENT ----- Physical Exam Weight 111 kg. BMI 44.63 kg/m METHOD ----- Transabdominal ultrasound examination ----- [place] . Number of fetuses: 1 DATING ----- GA by prior [id number] w + 5 d GEORGE by prior [...] 5 lb 14 oz EFW by Hadlock ([id number]) Head / Face / Neck Biometry: Supervisor Twisting Department 4.6mm Extremities / Bony Struc Biometry: [place] [...] and date of were verified by the clinical genetics laboratory chief prior tothe exam IMPRESSION ----- [place] @ [...] PM CDT Narrative 12/23/2024 3:17 PM CDT [facility] NST ----- Pat. Name: DEBORAH [place] Study Date: 12/23/2024 3:06pm Pat. NO: [id number] Referring MD: LUCIANO FRANCISCO MD Site: [facility] Sulfonator Operator: : 1995 Age: 29 ----- INDICATION ----- Maternal Obesity (BMI>40) Complicating Pre-existing Type 2 Diabetes Mellitus CODING ----- Diagnoses Z3A.34: Weeks of gestation O24.113: Pre-existing type 2 diabetes mellitus, in O99.213: Obesity complicating Z36.2: Encounter for other screening follow-up Procedures 39699: NST/ monitoring MATERNAL ASSESSMENT ----- Physical Exam [...] Note Megan Allan MD - 12/23/2024 [facility] NST ----- Pat. Name:Lucila [place] Date:12/23/2024 3:06pm Pat. NO: [id number] MD:LUCIANO FRANCISCO [facility]1995Age:29 ----- INDICATION ----- Maternal Obesity (BMI>40) Complicating Pre-existing Type 2 Diabetes Mellitus CODING ----- Diagnoses Z3A.34: Weeks of gestation O24.113: Pre-existing type 2 diabetes mellitus, inpregnancy O99.213: Obesity complicating Z36.2: Encounter for other screeningfollow-up Procedures 18732: NST/ monitoring MATERNAL ASSESSMENT ----- Physical Exam Blood pressure 128/68 mmHg. Heart rate 98 bpm METHOD ----- EFM ----- [place] . Number of fetuses: 1 DATING ----- Method of dating:based on stated GEORGE [place] by prior [id number] w + 5 d GEORGE by prior [...] US after NST. IMPRESSION ----- Reactive NST. us Matt Landin MD ORDERABLES Final Resu lt from Last 3 Months Insurance [facility] MEDICAID [facility] [id number]
--- OUTSIDE RECORDS SUMMARY | 2025-02-20 15:16 | XMS_ITS | Clinical Summary ---
Author Organization [facility] Address [address] [place] [address] Care Team Providers Care Engraver Tender Name Role Phone Unknown, Provider Primary Care Provider Unavaila ble Source Comments [facility],non-owned Affiliates and Associated Physician Practices is amultiple site organization consisting of ambulatory clinics and hospital sitesin [place], [place], [place] and [place]. This disclosure is being madepursuant to the Care Everywhere program and may not contain all information available regarding this patient. Last updated 18.[facility] Allergies No known active allergies Medications * Be aware that medications may not be up to date on this document. Alwaysverify current medications with the patient. No known medications Immunizations Immunization Administration Dates Next Due MMR 05/23/2019 Social History Tobacco Use Types Packs/Day Years Used Date Smoking Tobacco: Never Smokeless Tobacco: Never Comments No Sex and Gender Information Value Date Recorded Sex Assigned at Not on file Legal Sex Female 9:10 AM LIDAR TECHNICIAN Gender Identity Female 05/23/2019 10:04 AM LIDAR TECHNICIAN Sexual Orientation Not on file Last Filed Vital Signs Vital Sign Reading Time Taken Comments Blood Pressure 116/78 05/23/2019 10:05 AM LIDAR TECHNICIAN Pulse 83 05/23/2019 10:05 AM LIDAR TECHNICIAN Temperature 37.1 C (98.7 F) 05/23/2019 10:05 AM LIDAR TECHNICIAN Respiratory Rate 16 05/23/2019 10:05 AM LIDAR TECHNICIAN Oxygen Saturation 98% 05/23/2019 10:05 AM LIDAR TECHNICIAN Inhaled Oxygen Concentration - - Weight 99.8 kg (220 lb) 05/23/2019 10:05 AM LIDAR TECHNICIAN Height 158.8 cm (5' 2.5) 05/23/2019 10:05 AM CS T Body Mass Index 39.6 05/23/2019 10:05 AM LIDAR TECHNICIAN Plan of Treatment Health Maintenance Due Date Last Done Comments HIV SCREENING 2012 HEPATITIS C SCREENING 10/16/2015 DTAP/TDAP/TD VACCINES (1 - Tdap) 2016 HEPATITIS B VACCINE (1 of 3 - 19+ 3-dose series) 2016 DEPRESSION SCREENING 04/17/2024 HPV VACCINE (1 - 3-dose SCDM series) 2024 COVID-19 VACCINE (1 - 2023-2 5 season) 2024 INFLUENZA VACCINE (#1) 2024 ZOSTER VACCINE (1 of 2) 10/21/2047 HIB VACCINE Aged Out No longer eligi ble based on patient's age to complete this topic MENINGOCOCCAL (Group B) VACC INE SHARED DECISION-MAKING Aged Out No longer eligibl e based on patient's age to complete this topic MENINGOCOCCAL GROUPS A/C/Y/W VACCINE Aged Out No longer eligible b ased on patient's age to complete this topic PNEUMOCOCCAL VACCINE Aged Out No long er eligible based on patient's age to complete this topic Insurance SELF PAY NO INSURANCE Member Subscriber Plan / Payer (Ef fective for All Dates) Name:Fannie Martin Member ID:Not on file Relation to Subscriber:Self Name:Fannie Martin Subscriber ID:Not on file Payer ID:Not on file Group ID:Not on file Type:Self Pay Address: [facility] Care Teams Engraver Tender Relationship Specialty Start Date End Date Unknown, Provider PCP - General 05/23/19
--- OUTSIDE RECORDS SUMMARY | 2025-02-20 15:16 | XMS_ITS | Data Portability ---
Author Organization [facility] Address [address] [place] [address] Assessment Encounter Date Assessment Date Assessment LastModified by Organization Details LastModified Time 12/25/2024 12/25/2024 Patient is _35__weeks . Discussed plan. Not available 12/25/2024 16:18:05 01/03/2025 01/03/2025 Patient is _36__weeks . Discussed plan. [email or web address] Not available 01/03/2025 16:36:06 01/08/2025 01/08/2025 Patient is _37__weeks . Discussed plan. Not available 01/08/2025 16:15:33 Plan of Treatment Reminders Order Date Submit Date Provider Last Modified By Organization Details Last Modified Time Details Appointments None record ed. Lab None record ed. Referral None record ed. Procedures None record ed. Surgeries None record ed. Imaging None record ed. Medication Orders None record ed. Patient TargetsNo targets recorded. Patient InstructionsNo instructions recorded. Reason for Referral None Reported. Results Created Date Observation Date Name Description Value Unit Range Abnormal Flag Note LastModifiedBy Organization Detail LastModifiedTime 01/04/2001/03/2025 CULTU RE: GROUP B STREP SCREE N, REFLE X SUSCE PTIBI LITY result report SEE RESULT S BELOW Test: Cultu re: Group B Strep , Refle x Susce ptibi lity ([facility]/ [facility] ) Speci men Sourc e: Vagin a/Rec lemuel Speci men Type: Vagin al/Re ctal Speci men Date: 2024 1547 Resul t Date: 2024 1550 Resul t Statu s: Final resul t Abnor mal: No Resul ting Lab: [facility] [address] [facility] [address] Tel: CULTU RE ----- ----- ----- --- No Group B strep isola anatoly at 2 days (vane ctive broth enhan cemen t) Not Available [facility] (Lab) [address] [facility], [place], [address], 01/06/2025 16:53:10 11/28/19 25 11/27/2024 US, obste tric, follo w-up No observ ation record ed. [email or web address] [facility] [address], [place], [address], 12/04/2024 17:07:21 11/28/19 25 11/27/2024 US, obste tric, follo w-up No observ ation record ed. [address], [address], 12/03/2024 12:50:17 12/07/19 25 12/06/2024 US, obste tric, follo w-up No observ ation record ed. [address], [address], 12/06/2024 16:17:23 12/24/19 25 12/23/2024 US, obste tric, follo w-up No observ ation record ed. [address], [address], 01/06/2025 15:29:55 12/31/19 25 12/30/2024 US, obste tric, follo w-up No observ ation record ed. [address], [address], 01/03/2025 15:28:08 Result Notes None recorded. Problems Name Problem SNOMED Code Status Onset Date Resolution Date Notes Provider Name and Address Organization Details Recorded Time Body mass index 40+ - severely obese 217763981 Completed Mai Dias [facility] 5 15:25:04 Pregnanc y 72150337 Completed 202401/17/2025 Mai Dias [facility] 5 16:20:16 Diabetes mellitus 09142107 Completed 2024 Toujeo 100 units, humalog 40/86 , metformi n 1000 BID 12/27 mfm monitori ng sugars nst 32wks Level II us [facility] 11/27/24 Antenata l testing schedule d [facility] to start 12/05/24 2xwkly recommen ded [place] led [facility] 2x wkly NSTs , MALI and serial growth us recommen d [facility] [address] [facility] 18:17:18 Type 2 diabetes mellitus 33110688 Active 2024 Lianet Jimeneztz [facility] 5 09:57:33 Gestatio nal diabetes mellitus class A2 45566683 Active 2024 insulin will need nst 32wks Lianet Jimeneztz [facility] 5 09:58:02 Diabetes mellitus 07980300 Active 2024 Toujeo 100 units, humalog 4066/86 , metformi n 1000 BID 12/27 mfm monitori ng sugars nst 32wks Level II us [facility] 11/27/24 Antenata l testing schedule d [facility] to start 12/05/24 2xwkly recommen ded [place] led [facility] 2x wkly NSTs , MALI and serial growth us recommen d delivery [address] [facility] 5 18:17:19 Problem Notes None recorded. Procedures Surgical History Date Name Laterality Status Provider Name and Address Organization Details Recorded Time 5 Caesarean Section completed [facility] 01/17/2025 16:21:13 5 Date of Last Pap Smear completed [facility] 07/31/2024 15:34:14 Imaging Results None recorded. Procedure Notes None recorded. Medical Equipment None Reported. Allergies No known drug allergies Medications Name Sig Start Date Stop Date Status Note LastModified by Organization Details LastModified Time aspirin 81 mg tablet,idania yed release TAKE 2 TABLETS BY MOUTH DAILY active Not Available Not Available No t Available ondansetron 4 mg disintegrat ing tablet active Not Available Not Available N ot Available metformin ER 500 mg tablet,exte nded release 24 hr PLEASE SEE ATTACHED FOR DETAILED DIRECTION S active Not Available Not Available No t Available oxycodone 5 mg tablet TAKE 1 TABLET (5 MG) BY MOUTH EVERY 4 HOURS NEEDED FOR PAIN RATED 4-6 FOR 2 WEEKS active Not Available Not Available No t Available insulin lispro (U-100) 100 unit/mL subcutaneou s pen PLEASE SEE ATTACHED FOR DETAILED DIRECTION S active Not Available Not Available No t Available azithromyci n 500 mg tablet Take 2 tablets every day by oral route for 1 day. 06/19 completed Not Available Not Available Not Available active Not Available Not Avai lable Not Available OneTouch Verio test strips USE TO TEST BLOOD SUGAR 4 TIMES A DAY FASTING & ONCE AFTER BREAKFAST /LUNCH/DI NNER *NEED PRIMARY INS* active Not Available Not Available No t Available OneTouch Verio Flex Meter active Not Available Not Available Not Available TechLITE Pen Needle 32 gauge x /32 USE 4 PEN NEEDLES PER DAY WITH INSULIN INJECTION active Not Available Not Available No t Available insulin glargine (U-300) conc. 300 unit/mL (3 mL) subcutaneou s pen INJECT 100 UNITS BY SUBCUTANE OUS INJECTION DAILY AT BEDTIME, MAX DOSE 120 UNITS PER DAY active Not Available Not Available No t Available insulin glargine U-300 conc 2024 active Not Available Not Available Not Avai lable OneTouch Delica Plus Lancet 33 gauge USE TO TEST BLOOD SUGAR 4 TIMES A DAY FASTING & ONCE AFTER BREAKFAST /LUNCH/DI NNER *NEED PRIMARY INS* active Not Available Not Available No t Available Dexcom G7 Sensor device CHANGE SENSOR EVERY 10 DAYS DIRECTED active Not Available Not Available No t Available Vitals Date Recorded Body height Body mass index (BMI) Body weight Systolic And Diastolic Provider Name and Address Organization Details Last Updated DateTime 12/25/2024 157.48 cm 46.1 kg/m2 004684.28 g 115/82 mm[Hg] [facility] 12/25/2024 16:06:47 Date Recorded Body height Body mass index (BMI) Body weight Systolic And Diastolic Provider Name and Address Organization Details Last Updated DateTime 01/03/2025 157.48 cm 46.8 kg/m2 108235.65 g 139/86 mm[Hg] [facility] 01/03/2025 16:29:34 Date Recorded Body height Body mass index (BMI) Body weight Systolic And Diastolic Provider Name and Address Organization Details Last Updated DateTime 01/08/2025 157.48 cm 46.8 kg/m2 131329.65 g 134/89 mm[Hg] [facility] 01/08/2025 16:02:55 Date Recorded Body height Body mass index (BMI) Body weight Systolic And Diastolic Provider Name and Address Organization Details Last Updated DateTime 01/17/2025 157.48 cm 45 kg/m2 364743.72 g 138/63 mm[Hg] Mai Dias [facility] 01/17/2025 16:20:35 Social History Question Answer Notes LastModified by Organizat ion Details LastModified Time Tobacco Smoking Status Never Smoker Mai Dias [facility] 05/29/2024 17:17:30 Do You Have An Advance Directive? No Information n ot available 11/13/2024 If You Are , What Was Your Level Of Alcohol Consumption Prior To ? Occasional [email or web address] Information not available 08/21/2024 Are You Blind Or Do You Have Difficulty Seeing? No Information n ot available 05/29/2024 What Is Your Level Of Caffeine Consumption? Moderate Information not available 05/29/2024 In The 14 Days Before Symptom Onset, Have You Had Close Contact With A Laboratory-confirm ed COVID-19 While That Case Was Ill? No Information n ot available 05/29/2024 In The 14 Days Before Symptom Onset, Have You Had Close Contact With A Person Who Is Under Investigation For COVID-19 While That Person Was Ill? No Information not available 05/29/2024 Have You Been To An Area Known To Be High Risk For COVID-19? No Information not available 05/29/2024 Are You Deaf Or Do You Have Serious Difficulty Hearing? No Information not available 05/29/2024 What Type Of Diet Are You Following? REGULAR Information n ot available 05/29/2024 What Is The Highest Grade Or Level Of School You Have Completed Or The Highest Degree You Have Received? [id number] Information not available 05/29/2024 Are There Any Guns Present In Your Home? Yes Information not available 05/29/2024 Do You Use Protection During Sex? No Information not available 05/29/2024 Do You Use Your Seat Belt Or Car Seat Routinely? Yes Information not available 05/29/2024 Are You Sexually Active? Yes Information not available 05/29/2024 Do You Have Smoke And Carbon Monoxide Detectors In Your Home? Yes Information not available 05/29/2024 Do You Use Sunscreen Routinely? Yes Information not available 05/29/2024 Has Tobacco Cessation Counseling Been Provided? No [email or web address] Information not available 11/13/2024 Do You Have Difficulty Walking Or Climbing Stairs? No Information not available 05/29/2024 Sex: Female Functional Status Question Answer Note LastModified by Organizat ion Details LastModified Time Do you use any illicit or recreational drugs? No Information not available 05/29/2024 Do you or have you ever used any other forms of tobacco or nicotine? No Information not available 11/13/2024 What is your level of alcohol consumption? None [email or web address] Information not available 08/21/2024 Are you currently employed? Yes Information not available 05/29/2024 Are you able to walk independently without assistance or assistive devices? [email or web address] Information not available 05/29/2024 Are you able to care for yourself independently? 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 No Information not available 05/29/2024 What is your exercise level? None Information not available 05/29/2024 Mental Status Question Answer Note LastModified by Organization D etails LastModified Time Do you feel stressed (tense, restless, nervous, or anxious, or unable to sleep at night)? [id number] Information not available 05/29/2024 Family History Relationship Description Onset Age of this Age Resolved Age Notes LastModified by Organization Details LastModified Time Mother High risk 40 Not available 2024 17:15:39 Maternal Grandmother Diabetes mellitus Not available 2024 17:15:39 Medical History Condition Response Allergies (Food, seasonal, environmental ) N Other N Breast Cancer N Drug/Latex Allergies/Reactions N Blood Transfusion N Dermatologic Disorders N Lung Disease N Defects or Inherited Disease N Breast Problem N Gestational Diabetes Y Hematologic disorders N Anesthesia Complications N History of STI N Deep Vein Thrombosis N Polycystic ovary syndrome N Anxiety Disorder N Autoimmune disease N Arthritis N Infertility N Polyps N Acid Reflux (GERD) N History of abnormal pap N Cancer N Stroke N Varicosities N Neurologic/Epilepsy N Endometriosis N High Cholesterol N Headaches N Fibromyalgia N Kidney Disease N Heart Problems N Kidney or Bladder Problems N Thyroid Problems N GI Problems N Eating Disorder N Anemia N Art (IVF or FET) N Psychiatric Illness N Ovarian Cancer N Diabetes Y Pulmonary (TB, Asthma) N Hepatitis/Liver Disease N No Past Medical History Y Eczema N Urinary Tract Infection N Abuse/Domestic Violence N Asthma N Trauma/Violence N Depression/ depression N Heart Disease N Pre-Eclampsia N Hypertension N Osteoporosis N Thrombophilias N Gynecological History Statement/Question Response Flow Moderate Date of Last Mammogram Date of LMP 04/04/2024 Was last menstrual period normal Y STIs/STDs Y Duration of Flow (days) 7 Current Control Method Breastfeedi ng/MARTINEZ Are cycles usually normal Y Date of Last Colonoscopy Frequency of Cycle (Q days) 28 Sexually Active? Y Menses Monthly Y Date of DEXA bone scan Age of first menstrual cycle 15 Date of Last Pap Smear 05/29/2024 Sexual Problems? N LMP Approximate Obstetrics History GPAL:G 1 P 1 0 0 1 Type Value Full Term 1 Living 1 Total 1 Past Encounters Encounter ID Performer Location Encounter Start Date Encounter Closed Date Diagnosis/Indication Diagnosis SNOMED-CT Code Diagnosis ICD10 Code Diagnosis IMO Codes Diagnosis Note [id number] Carlos Lewis MD [facility] [address],[place] [address] 05/29/2024 16:23:52 05/29/2024 17:59:12 Uterine size for dates discrepancy 436023232 O26.841 Z3A.01 [id number] Carlos Lewis MD [facility] [address],[place] [address] 05/29/2024 16:24:48 05/30/2024 16:45:05 Venereal disease screening 716971022 Z11.3 Amenorrhea 53059223 N91. 2 This patient is a 28-year-ol d female presents for STD screening. We agreed to test. Vaginal swab was taken. Exam is normal. We talked about her ultrasound results. She has an intrauteri ne gestationa l sac. There may be a yolk sac present she is very early in this . Sac is consistent with 5 weeks. To repeat ultrasound in 1 week. Patient has no other complaints . I spent over 20 minutes on her care. We discussed early care. We discussed of unknown location. We discussed confirmati on of viability. Discussed miscarriag e. [id number] Carlos Lewis MD [facility] [address],[place] [address] 06/05/2024 14:25:28 06/05/2024 14:55:57 Uncertain viability of 948982010 O36.80X0 Z36.87 Z3A.01 [id number] LUCIANO FRANCISCO MD [facility] [address],[place] [address] 06/19/2024 14:29:08 06/19/2024 14:48:15 [id number] LUCIANO FRANCISCO MD [facility] [address],[place] [address] 06/19/2024 14:29:45 06/19/2024 16:02:14 test positive 234416894 Z32.01 1. Exam today within normal limits.2. Ultrasound today confirms GA and viability. EDC . GC/Clamydi a testing completed at last visit;+chl amydia, treated; CAROLA at 24 weeks4. ACOG guidelines and plan of care for reviewed with patient. All questions answered.5 . Return to office at 12 weeks for new OB visit6. Will need new OB labs at next visit.7. Genetic screening: desires at 10 weeks, orders given today. Chlamydia trachomatis infection in 8249633232 101 O23.91 +chlamydia on screening, treatedrep eat CAROLA at 24 weeks [id number] Carlos Lewis MD [facility] [address],[place] [address] 07/24/2024 14:00:26 07/24/2024 14:44:32 screening 801485768 Z36.82 Z3A.12 [id number] Carlos Lewis MD [facility] [address],[place] [address] 07/31/2024 15:01:41 07/31/2024 16:11:41 Routine care 122778269 Z34.90 [id number] Shira Ruiz CNM [facility] [address],[place] [address] 08/21/2024 09:44:53 08/21/2024 10:12:07 Gestation period, 17 weeks 43992767 Z3A.17 4641034 Diabetes mellitus 319208 09 E11.9 [id number] Shira Ruiz CNM [facility] [address],[place] [address] 09/18/2024 11:30:05 09/18/2024 15:17:56 Gestation period, 21 weeks 86993608 Z3A.21 [id number] [id number] Shira Ruiz CNM [facility] [address],[place] [address] 10/16/2024 09:42:30 10/16/2024 10:06:42 Gestation period, 25 weeks 34856368 Z3A.25 1580975 [id number] Shira Ruiz [facility] [address],[place] [address] 11/13/2024 14:00:59 11/13/2024 14:38:49 Gestation period, 29 weeks 92819276 Z3A.29 [id number] Shira Ruiz [facility] [address],[place] [address] 11/27/2024 12:31:58 11/27/2024 13:55:04 Gestation period, 31 weeks 22436461 Z3A.31 [id number] Shira Ruiz [facility] [address],[place] [address] 12/11/2024 13:50:52 12/11/2024 15:31:34 Gestation period, 33 weeks 30207300 Z3A.33 3919085 [id number] Shira Ruiz [facility] [address],[place] [address] 12/25/2024 15:56:11 12/25/2024 16:18:29 Gestation period, 35 weeks 07204604 Z3A.35 9111300 [id number] [facility] [address],[place] [address] 01/03/2025 16:21:45 01/03/2025 16:41:53 Gestation period, 36 weeks 63739204 Z3A.36 6676748 [id number] [facility] [address],[place] [address] 01/08/2025 15:51:20 01/08/2025 16:21:17 Gestation period, 37 weeks 14239066 Z3A.37 6645948 [id number] [facility] [address] [address] 01/10/2025 08:50:03 01/10/2025 09:41:24 [id number] Carlos Lewis MD [facility] [address] [address] 01/17/2025 15:53:55 01/20/2025 09:07:04 Postoperative visit 613449227 Z48.89 [id number] This patient is a 29-year-ol d female who presents for postop follow-up. She is 1 week postop from a delivery. Her incision is clean dry and intact. She has no complaints . Her bleeding is minimal. She denies any nausea, vomiting, fever, chills. She denies any chest pain or shortness of breath. Her baby is doing well. Her mood is good. Health Concerns Section Related Observation LastModified by Organization Detai ls LastModified Time None Recorded Concern Status LastModified by Organization Details LastModified Time None Recorded Advance Directives Directive N: Payers Insurance Date Sequence Insurance Name Policy Number Policy Laird Covered Member ID Laird Member ID Guarantor Name 01/16/2025 1 [facility] (PP[facility]) [id number] Fannie Martin [id number] Fannie Martin 01/27/2025 1 [facility] - DOS ON OR AFTER 20 (MEDICAID REPLACEMENT - HMO) Fannie Martin [id number] Fannie Martin Notes Date Note Type Note Provider Name and Address Organization Details Recorded Time 12/25/2024 text/html Generic HPI TemplateReported by Patient Shira Ruiz CNM [address], [place], [address], [facility] 12/25/2024 16:18:25 01/03/2025 text/html Generic HPI TemplateReported by Patient [address], [place], [address], [facility] 01/03/2025 16:36:50 01/08/2025 text/html Generic HPI TemplateReported by Patient Shira Roth SHUKRI Ruiz [address], [place], [address], [facility] 01/08/2025 16:15:57 01/17/2025 text/html This patient is a 29-year-old female who presents for postop follow-up. She is 1 week postop from a delivery. Her incision is clean dry and intact. She has no complaints. Her bleeding is minimal. She denies any nausea, vomiting, fever, chills. She denies any chest pain or shortness of breath. Her baby is doing well. Her mood is good. Carlos Lewis MD [address], [place], [address], [facility] 01/17/2025 18:31:35 OBGyn Episode Ob Episode Information Episode Created Date Number of Fetuses Patient Bloodtype Patient rh Status Prepregnancy Weight lbs Domestic Partner Domestic Partner Phone Father Name Engagement Liaison Status 08/01/19 25 1 O Positive 239 Bubba CLOSED Fetus Data First Name Last Name Admitted to NICU Weight (g) Sex Living Outcome Pediatric Complications Fetus ID Race Codes Race Delivery Type Lylah false 3061.74 6 F true Full Term [id number] Primary Problems Problem Notes Problem Name Start Date End Date Resolution Snomed Code Not e Diabetes mellitus 08/21/2024 54258435 T oujeo 100 units, humalog 40/66/, metformin 1000 BID 12/27 mfm monitoring sugars nst 32wksLevel II us [facility] 11/27/24Antenatal testing scheduled [facility] to start 12/05/24 2xwkly recommended Scheduled [facility] 2x wkly NSTs , MALI and serial growth usrecommend delivery 37 Body mass index 40+ - severely obese [id number] Denis Calculation Initial Denis Date Initial Exam Date Initial Exam Provider Initial Ultrasound Date Last Menstrual Period Date Ultra Sound Weeks Gestation 07/31/2024 06/19/2024 8 Eighteen To Twenty Week Denis Update Ultra Sound Date Fundal Height At Umbil Quickening Date Ultra Sound Latest Weeks Gestation Final Denis Confirmed By Final Denis Confirmed Date Final Denis Date Ultra Sound Latest Days Gestation 0 01/30/20 25 0 Pre- Flowsheet Flowsheet Date 07/31/2024 Breen Score Blood Edema Fundus Height Fundus Units Glucose Ketones Leukocytes Nitrite Labor Signs Protein Cervic Dilation Cervic Effacement Cervic Station Type Weight in lbs Pre/Post Dialysis Refused 241.11444350249 BP Diastolic BP Location Tested BP Systolic BP Type 82 L arm 126 sitting Fetus Heart Rate Present Fetus Movement A No Comments this patient is a 16-year-ol d primiparous female at 12 weeks' gestation who presents for initial care. . Her medical, surgical, obstetric history is unremarkable. She is vaccinated. She was given precautions recommendations for . We talked about vaccines in . Talked about prNenatal care in detail. She is having genetic testing. She had a normal 12 week ultrasound. To begin routine care. Flowsheet Date 08/21/2024 Breen Score Blood Edema Fundus Height Fundus Units Glucose Ketones Leukocytes Nitrite Labor Signs Protein Cervic Dilation Cervic Effacement Cervic Station neg none Type Weight in lbs Pre/Post Dialysis Refused Weight 238.192585799911 BP Diastolic BP Location Tested BP Systolic BP Type 75 112 Fetus Heart Rate Present A 137 Present Fetus Movement A No Comments Patient states that [facility] is m onitoring blood sugars. Patient states that is having some discharge. reviewed precautions and education unsure if movement, has us at [facility] for anatomy discussed classes and director of cardiology service line, f/u here in 4 weeks 46 units inulin at hs and 14 each meal Flowsheet Date 09/18/2024 Breen Score Blood Edema Fundus Height Fundus Units Glucose Ketones Leukocytes Nitrite Labor Signs Protein Cervic Dilation Cervic Effacement Cervic Station neg none Type Weight in lbs Pre/Post Dialysis Refused 238.592294399821 BP Diastolic BP Location Tested BP Systolic BP Type 71 100 Fetus Heart Rate Present A 135 Present Fetus Movement A Yes Comments Patient is having nausea and vomiting. saw [facility] yesterday, doing well +FM f/u 4 weeks here in office, precautions and education Flowsheet Date 10/16/2024 Breen Score Blood Edema Fundus Height Fundus Units Glucose Ketones Leukocytes Nitrite Labor Signs Protein Cervic Dilation Cervic Effacement Cervic Station Type Weight in lbs Pre/Post Dialysis Refused Weight 240.103895606439 BP Diastolic BP Location Tested BP Systolic BP Type 74 L arm 110 sitting Fetus Heart Rate Present Fetus Movement A Yes Comments doing well sees [facility] soon for US, texting bs to them, +FM, plan 4 week f/u here, education and precautions Flowsheet Date 11/13/2024 Breen Score Blood Edema Fundus Height Fundus Units Glucose Ketones Leukocytes Nitrite Labor Signs Protein Cervic Dilation Cervic Effacement Cervic Station Type Weight in lbs Pre/Post Dialysis Refused Weight 244.447153808048 BP Diastolic BP Location Tested BP Systolic BP Type 85 126 Fetus Heart Rate Present Fetus Movement A Yes Comments +FM, doing well seeing [facility] f or testing, bs logs at [facility], ok for tdap, precautions and educations f/u 2 weeks Flowsheet Date 11/27/2024 Breen Score Blood Edema Fundus Height Fundus Units Glucose Ketones Leukocytes Nitrite Labor Signs Protein Cervic Dilation Cervic Effacement Cervic Station Type Weight in lbs Pre/Post Dialysis Refused Weight 247.274353152999 BP Diastolic BP Location Tested BP Systolic BP Type 95 L arm 143 sitting Fetus Heart Rate Present Fetus Movement A Yes Comments testing at [facility], managing bs, doing well +FM, call next time for preadmission,reviewed kick counts f/u 2 weeks Flowsheet Date 12/11/2024 Breen Score Blood Edema Fundus Height Fundus Units Glucose Ketones Leukocytes Nitrite Labor Signs Protein Cervic Dilation Cervic Effacement Cervic Station Type Weight in lbs Pre/Post Dialysis Refused Weight 249.016248010865 BP Diastolic BP Location Tested BP Systolic BP Type 83 L arm 134 sitting Fetus Heart Rate Present Fetus Movement A Yes Comments +FM. seeing [facility] for nst an d us plan iol around 39 weeks, education and precautions, vtx by us at [facility], f/u here in 2 weeks, call [facility] for preadmission Flowsheet Date 12/25/2024 Breen Score Blood Edema Fundus Height Fundus Units Glucose Ketones Leukocytes Nitrite Labor Signs Protein Cervic Dilation Cervic Effacement Cervic Station Type Weight in lbs Pre/Post Dialysis Refused Weight 252.502008365283 BP Diastolic BP Location Tested BP Systolic BP Type 82 L arm 115 sitting Fetus Heart Rate Present A 138 Present Fetus Movement A Yes Comments +FM seeing [facility] monday , glaser s been increasing insulin, fastings still elevated, gbs next week, preadmit scheduled.precautions and education, f/u one week Flowsheet Date 01/03/2025 Breen Score Blood Edema Fundus Height Fundus Units Glucose Ketones Leukocytes Nitrite Labor Signs Protein Cervic Dilation Cervic Effacement Cervic Station Type Weight in lbs Pre/Post Dialysis Refused Weight 256.431267400706 BP Diastolic BP Location Tested BP Systolic BP Type 86 L arm 139 sitting Fetus Heart Rate Present Fetus Movement A Yes Comments +FM doing well IOL next week gbs collectced education and precautions Flowsheet Date 01/08/2025 Breen Score Blood Edema Fundus Height Fundus Units Glucose Ketones Leukocytes Nitrite Labor Signs Protein Cervic Dilation Cervic Effacement Cervic Station Type Weight in lbs Pre/Post Dialysis Refused Weight 256.881746886741 BP Diastolic BP Location Tested BP Systolic BP Type 89 L arm 134 sitting Fetus Heart Rate Present A 135 Fetus Movement A Yes Comments +FM doing well IOL on 5 precautions and education f/u IOL Flowsheet Date 01/10/2025 Breen Score Blood Edema Fundus Height Fundus Units Glucose Ketones Leukocytes Nitrite Labor Signs Protein Cervic Dilation Cervic Effacement Cervic Station Type Weight in lbs Pre/Post Dialysis Refused BP Diastolic BP Location Tested BP Systolic BP Type Fetus Heart Rate Present Fetus Movement Comments Flowsheet Date 01/17/2025 Breen Score Blood Edema Fundus Height Fundus Units Glucose Ketones Leukocytes Nitrite Labor Signs Protein Cervic Dilation Cervic Effacement Cervic Station Type Weight in lbs Pre/Post Dialysis Refused Weight 246.222850033296 BP Diastolic BP Location Tested BP Systolic BP Type 63 L arm 138 sitting Fetus Heart Rate Present Fetus Movement Comments Menstrual History Last Menstrual Date Menses Monthly On Bcp Conception Prior Menses Frequency Hcg Plus Date Menarche Onset Age Delivery Information Delivery Date Delivery Type Labor Anesthesia Weeks Gestation Incision Type Labor Labor Length Hrs Delivered By Post Complications Tubal Sterilization Discharge Date Comments 5 Induce d 37.2 Low Transvers e false None false Discharge Information Feeding Method Contraceptive Method Maternal HG B and HCT Levels
--- OUTSIDE RECORDS SUMMARY | 2025-02-20 15:45 | XMS_ITS | Clinical Summary ---
Author Organization [facility] Address [address] [place] [address] Care Team Providers Care Senior Windows Systems Administrator Name Role Phone Unknown, Provider Primary Care Provider Unavaila ble Source Comments [facility],non-owned Affiliates and Associated Physician Practices is amultiple site organization consisting of ambulatory clinics and hospital sitesin [place], [place], [place] and [place]. This disclosure is being madepursuant to the Care Everywhere program and may not contain all information available regarding this patient. Last updated 18.[facility] Allergies No known active allergies Medications * [...] on file Legal Sex Female 9:10 AM SHOW OPERATIONS SUPERVISOR Gender Identity Female 05/23/2019 10:04 AM SHOW OPERATIONS SUPERVISOR Sexual Orientation Not on file Last Filed Vital Signs Vital Sign Reading Time Taken Comments Blood Pressure 116/78 05/23/2019 10:05 AM SHOW OPERATIONS SUPERVISOR Pulse 83 05/23/2019 10:05 AM SHOW OPERATIONS SUPERVISOR Temperature 37.1 C (98.7 F) 05/23/2019 10:05 AM SHOW OPERATIONS SUPERVISOR Respiratory Rate 16 05/23/2019 10:05 AM SHOW OPERATIONS SUPERVISOR Oxygen Saturation 98% 05/23/2019 10:05 AM SHOW OPERATIONS SUPERVISOR Inhaled Oxygen Concentration - - Weight 99.8 kg (220 lb) 05/23/2019 10:05 AM SHOW OPERATIONS SUPERVISOR Height 158.8 cm (5' 2.5) 05/23/2019 10:05 AM CS T Body Mass Index 39.6 05/23/2019 10:05 AM SHOW OPERATIONS SUPERVISOR Plan of Treatment Health Maintenance Due Date [...] Type:Self Pay Address: [facility] Care Teams Senior Windows Systems Administrator Relationship Specialty Start Date End Date Unknown, Provider PCP - General 05/23/19
--- OUTSIDE RECORDS SUMMARY | 2025-02-20 15:45 | XMS_ITS | Encounter Summary ---
Author Organization [facility] Address [address] [place] [address] Care Team Providers Care Numerical Control Programmer Name Role Phone Unavailable Primary Care Provider [...]
--- OUTSIDE RECORDS SUMMARY | 2025-02-20 15:45 | XMS_ITS | Clinical Summary ---
Author Organization [facility] Address [address] [place] [address] Phone Care Team Providers Care Golf Shoe Spike Assembler Name Role Phone Unavailable Primary Care Provider [...] daily. 60 Tablet 6 5 Active Insulin [place], Disposable, (BD Christina 2nd Gen Pen Needle) [...] 08/16/2024 Supervision of high risk in second [facility] 07/31/2024 Encounters Date Type Department Care Team Description 02/18/2025 External Device Data [facility] ABSTRACTION Provider, Abstract 02/12/2025 External Device Data [facility] ABSTRACTION Provider, Abstract 02/12/2025 External Device Data [facility]STRA[facility] Provider, Abstract 01/09/2025 3:28 PM CDT - 01/09/2025 11:59 PM CDT Hospital Encounter [facility] Maternal and Ground [facility] [address] [place] [address] Megan Allan MD Discharge Disposition: Home or Self Care 01/09/2025 Chart Note [facility] M[facility] and Medicine - [facility] [place] [address] [facility] [facility] [place] [address] Diabetes 01/06/2025 3:26 PM CDT - 01/06/2025 11:59 PM CDT Hospital Encounter [facility] Maternal and Ground Floor [address] [place] [address] Megan Allan MD Discharge Disposition: Home or Self Care 01/03/2025 Chart Note [facility] and Medicine - [facility] [place] [address] [place] [address] Diabetes 01/03/2025 Chart Note [facility] and [facility] - [facility] [place] [address] [place] [address] Isha Reeder NP Erroneous encounter-disregard 01/02/2025 3:41 PM CDT - 01/02/2025 11:59 PM CDT Hospital Encounter [facility] Maternal and Ground Floor [address] [place] [address] Megan Allan MD Discharge Disposition: Home or Self Care 12/31/2024 External Device Data [facility] ABSTRACTION Provider, Abstract 12/30/2024 3:40 PM CDT - 12/30/2024 11:59 PM CDT Hospital Encounter [facility] Maternal and Ground Floor [address] [address] [place] [phone] Megan Allan MD Discharge Disposition: Home or Self Care 12/27/2024 9:30 AM CDT visit [facility] Maternal Medicine [address] [place] [address] Isha Reeder NP Pre-existing type 2 diabetes mellitus during in third trimester (Primary Dx); Class 3 obesity (CMS/HCC); 35 weeks gestation of 12/27/2024 Chart Note [facility] Maternal Medicine [address] [place] [address] Isha Reeder NP Diabetes 12/26/2024 2:50 PM CDT - 12/26/2024 11:59 PM CDT Hospital Encounter [facility] Maternal and Ground Floor [address] [place] [address] Matt Landin MD Discharge Disposition: Home or Self Care 12/23/2024 2:50 PM CDT - 12/23/2024 11:59 PM CDT Hospital Encounter [facility] and Ground Floor [address] [place] [phone] Megan Allan MD Discharge Disposition: Home or Self Care 12/23/2024 2:49 PM CDT - 12/23/2024 11:59 PM CDT Hospital Encounter [facility] and Ground Floor [address] [place] [phone] Matt Landin MD Discharge Disposition: Home or Self Care 12/20/2024 Chart Note [facility] M[facility] and Medicine - [facility] [place] [address] [place] [address] Isha Reeder NP Gestational Diabetes 12/19/2024 2:51 PM CDT - 12/19/2024 11:59 PM CDT Hospital Encounter [facility] and Ground [facility] [address] [place] [phone] Matt Landin MD Discharge Disposition: Home or Self Care 12/17/2024 2:08 PM CDT - 12/17/2024 11:59 PM CDT Hospital Encounter [facility] and Ground Floor [address] [place] [phone] Matt Landin MD Discharge Disposition: Home or Self Care 12/17/2024 External Device Data [facility] ABSTRACTION Provider, Abstract 12/12/2024 3:07 PM CDT - 12/12/2024 11:59 PM CDT Hospital Encounter [facility] and Ground [facility] [address] [place] [phone] Matt Landin MD Discharge Disposition: Home or Self Care 12/12/2024 Orders Only [facility] M[facility] and Medicine - [facility] [place] [address] [place] [address] Albina Davenport MD Pre-existing type 2 diabetes mellitus during , antepartum (Primary Dx) 12/12/2024 Chart Note [facility] and Medicine - [place] [address] [place] [address] Isha Reeder NP Diabetes 12/09/2024 3:05 PM CDT - 12/09/2024 11:59 PM CDT Hospital Encounter [facility] Maternal and Ground Floor [address] [place] [address] Matt Landin MD Discharge Disposition: Home or Self Care 12/06/2024 9:00 AM CDT - 12/06/2024 11:59 PM CDT Hospital Encounter [facility] Maternal and Ground Floor [address] [place] [address] Matt Landin MD Discharge Disposition: Home or Self Care 12/05/2024 Abstract [facility] M[facility] and Medicine - [facility] [place] [address] [place] [address] 12/05/2024 Chart Note [facility] M[facility] and Medicine - [facility] [place] [address] [place] [phone] Matt Ladnin MD Diabetes 12/04/2024 External Device Data [facility] ABSTRACTION Provider, Abstract 11/29/2024 8:45 AM CDT visit [facility] Maternal Medicine [address] [place] [phone] Isha Reeder NP Pre-existing type 2 diabetes mellitus during in third trimester (Primary Dx); Obesity affecting in third trimester, unspecified obesity type; 31 weeks gestation of 11/29/2024 Chart Note [facility] Maternal Medicine [address] [place] [phone] Isha Reeder NP Diabetes 11/27/2024 3:00 PM CDT - 11/27/2024 11:59 PM CDT Hospital Encounter [facility] and Ground [facility] [address] [place] [address] Matt Landin MD Discharge Disposition: Home or Self Care 11/26/2024 External Device Data ST[facility] ABSTRACTION Provider, Abstract 11/21/2024 Chart Note [facility]aternal Medicine [address] [place] [address] Agustin Wu MD Diabetes from [...] CDT Narrative 01/09/2025 4:44 PM CDT MODIFIED [facility] STUDY ----- Pat. Name: DEBORAH MARTIN Study Date: 01/09/2025 3:48pm Pat. NO: [id number] Referring MD: LUCIANO FRANCISCO MD Site: [facility] Scientific Photographer: : 1995 Age: 29 ----- INDICATION ----- Maternal Obesity (BMI>40) Complicating Pre-existing Type 2 Diabetes Mellitus CODING ----- Diagnoses Z3A.37: Weeks of gestation O99.213: Obesity complicating O24.113: Pre-existing type 2 diabetes mellitus, in Procedures 65011: NST/ monitoring 30274: Limited 1 or more - MALI, FHR, [...] Pat. Name:Lucila MARTIN Date:01/09/2025 3:48pm Pat. NO: [id number] MD:LUCIANO FRANCISCO [facility]1995Age:29 ----- INDICATION ----- Maternal Obesity (BMI>40) Complicating Pre-existing Type 2 Diabetes Mellitus CODING ----- Diagnoses Z3A.37: Weeks of gestation O99.213: Obesity complicating O24.113: Pre-existing type 2 diabetes mellitus, inpregnancy Procedures 04198: NST/ monitoring 39882: Limited 1 or more - MALI, FHR, position(modifier 59 for MBPP) HISTORY ----- OB History 1 MATERNAL ASSESSMENT ----- Physical Exam Blood pressure 129/56 mmHg. Heart rate 104 bpm METHOD ----- EFM, Transabdominal ultrasound examination. View: Good view ----- [place] . Number of fetuses: 1 DATING ----- GA by prior [id number] w + 1 d GEORGE by prior [...] MARTIN Study Date: 12/23/2024 3:38pm Pat. NO: [id number] Referring MD: LUCIANO FRANCISCO MD Site: [facility] Scientific Photographer: Anastasiia Montoya RDMS : 1995 Age: 29 ----- INDICATION ----- Maternal Obesity (BMI>40) Complicating Pre-existing Type 2 Diabetes Mellitus Screening Follow-Up CODING ----- Diagnoses Z3A.34: Weeks of gestation Z36.2: Encounter for other screening follow-up O99.213: Obesity complicating O24.113: Pre-existing type 2 diabetes mellitus, in Procedures 22777: Ultrasound, uterus, real time with image documentation, [...] 5 lb 14 oz EFW by Hadlock ([id number]) Head / Face / Neck Biometry: Cash Register Repairer 4.6 mm Extremities / Bony Struc Biometry: [...] and date of were verified by the certification and selection specialist prior to the exam IMPRESSION ----- [place] [...] Pat. Name:Lucila MARTIN Date:12/23/2024 3:38pm Pat. NO: [id number] MD:LUCIANO FRANCISCO MD [facility]:Anastasiia Montoya RDMS :1995Age:29 ----- INDICATION ----- Maternal Obesity (BMI>40) Complicating Pre-existing Type 2 Diabetes Mellitus Screening Follow-Up CODING ----- Diagnoses Z3A.34: Weeks of gestation Z36.2: Encounter for other screeningfollow-up O99.213: Obesity complicating O24.113: Pre-existing type 2 diabetes mellitus, inpregnancy Procedures 17163: Ultrasound, uterus, real time withimage documentation, follow [...] 5 lb 14 oz EFW by Hadlock ([id number]) Head / Face / Neck Biometry: Cash Register Repairer 4.6mm Extremities / Bony Struc Biometry: FL [...] and date of were verified by the certification and selection specialist prior tothe exam IMPRESSION ----- [place] @ [...] PM CDT Narrative 12/23/2024 3:17 PM CDT [facility] ----- Pat. Name: DEBORAH MARTIN Study Date: 12/23/2024 3:06pm Pat. NO: [id number] Referring MD: LUCIANO FRANCISCO MD Site: [facility] Scientific Photographer: : 1995 Age: 29 ----- INDICATION ----- Maternal Obesity (BMI>40) Complicating Pre-existing Type 2 Diabetes Mellitus CODING ----- Diagnoses Z3A.34: Weeks of gestation O24.113: Pre-existing type 2 diabetes mellitus, in O99.213: Obesity complicating Z36.2: Encounter for other screening follow-up Procedures 53225: NST/ monitoring MATERNAL ASSESSMENT ----- Physical Exam [...] Pat. Name:Lucila MARTIN Date:12/23/2024 3:06pm Pat. NO: [id number] MD:LUCIANO FRANCISCO MD [facility]1995Age:29 ----- INDICATION ----- Maternal Obesity (BMI>40) Complicating Pre-existing Type 2 Diabetes Mellitus CODING ----- Diagnoses Z3A.34: Weeks of gestation O24.113: Pre-existing type 2 diabetes mellitus, inpregnancy O99.213: Obesity complicating Z36.2: Encounter for other screeningfollow-up Procedures 39951: NST/ monitoring MATERNAL ASSESSMENT ----- Physical Exam Blood pressure 128/68 mmHg. Heart rate 98 bpm METHOD ----- EFM ----- [place] . Number of fetuses: 1 DATING ----- Method of dating:based on stated GEORGE [place] by prior [id number] w + 5 d GEORGE by prior [...] Resu lt from Last 3 Months Insurance [facility] MEDICA[facility] [id number]
[2025-02-20] MEDS: HYDROmorphone HCL INJ (*CRX) 1 MG/ML SYR IV PUSH (16:35)
--- NOTE | 2025-02-20 19:40 | PC.NURSE ---
PT WANTING TO KNOW IF SHE NEEDS TO DUMP BREAST MILK SINCE TOOK DILAUDID EARLIER. I TALKED WITH THE OB CHARGE NURSE AND SHE SPOKE WITH THE NURSERY NURSES AND SAID SHE DOES NOT NEED TO DUMP. INFORMED PT
[2025-02-20 20:22] VITALS: BP 106/58; PULSE 60; RESP 20; TEMP 36.5; O2SAT 96
[2025-02-21] VITALS (12 sets, daily range): BP systolic 101–145; BP diastolic 53–85; PULSE 60–81; RESP 15–20; TEMP 35.7–37; O2SAT 96–100
[2025-02-21] MEDS: LACTATED RINGERS 1,000 ML 125 ML IV CONT ×2 (01:58→10:02)
[2025-02-21 05:24] LABS: Hematocrit 37.1 % (37.0-47.0); Hemoglobin 11.9 g/dL (12.0-15.0); Mean Corpuscular HGB Conc 32.1 g/dl (32-36); Mean Corpuscular Hemoglobin 27.3 pg (26-34); Mean Corpuscular Volume 85.1 fl (80-100); Platelet Count Result 304 k/mm3 (150-375); Red Blood Count 4.36 M/mm3 (4.2-5.4); White Blood Count 9.0 K/mm3 (4.5-10.0)
[2025-02-21 05:42] LABS: Alanine Aminotransferase 528 U/L (6-35); Albumin Level 3.6 g/dL (3.5-5.1); Alkaline Phosphatase 170 U/L (38-126); Anion Gap 6 mmol/L (4-12); Aspartate Amino Transferase 269 U/L (14-36); Bilirubin,Total 3.0 mg/dL (0.2-1.3); Blood Urea Nitrogen 9 mg/dL (7-17); Calcium 9.0 mg/dL (8.4-10.2); Carbon Dioxide 28 mmol/L (22-30); Chloride 102 mmol/L (98-107); Estimated CRCL calculation 103 ml/min; Estimated Glomerular Filt Rate > 60; Glucose 88 mg/dL (65-110); Magnesium 1.8 mg/dL (1.6-2.3); Potassium 3.9 mmol/L (3.4-5.0); Sodium 136 mmol/L (137-145); Total Protein 6.6 g/dL (6.3-8.2)
[2025-02-21 08:09] LABS: Hep B Core Ab, Total Negative (Negative)
--- NOTE | 2025-02-21 09:28 | P.PNGS_ITS ---
Progress Note: A&P Assessment and Plan (1) Cholelithiasis: Code(s): K80.20 - Calculus of gallbladder without cholecystitis without obstruction Status: Acute Assessment and Plan: * MRCP demonstrated cholelithiasis with pericholecystic fluid in slightly distended common bile duct. Distal most portion of the common bile duct just before merging with the pancreatic duct is not well visualized and a small stone in this area is not excluded. GI was consulted and is planning ERCP for this afternoon. * Bilirubin 3.0 today. Liver enzymes remain elevated, but slightly improved. We will continue to follow to determine necessity for surgical intervention and timing. (2) Elevated liver enzymes: Code(s): R74.8 - Abnormal levels of other serum enzymes Status: Acute Assessment and Plan: * Hepatitis panel negative. * ERCP with GI today. (3) Obesity: Code(s): E66.9 - Obesity, unspecified Status: Acute Plan I have discussed the patient's case and plan of care with Dr. Kinney. Subjective Subjective Date/Time Seen: 02/21/25 09:28 Patient reports: no new complaints, feels better, bowel movement and afebrile Interval history: Patient doing well today. Sitting up in bed with minimal pain. NPO today for ERCP this afternoon. Small BM this morning. Exam Const: General: comfortable and no acute distress GI: Inspection: non-distended GI Palp: Yes Soft to palpation, Yes T enderness to palpation present (GI) (minimal epigastric pain) and No Guarding due to palpation present (GI) Auscultation: normal bowel sounds Objective Data Vital Signs Vital Signs: Vital Signs - 24 hr 02/20/25 14:51 02/20/25 20:22 02/21/25 04:04 Temperature 97.3 F L 97.7 F 97.6 F Pulse Rate 64 60 60 Respiratory Rate 18 20 20 Blood Pressure 122/70 106/58 L 113/53 L Pulse Oximetry 98 96 98 Oxygen Delivery 02/21/25 07:45 Temperature Pulse Rate Respiratory Rate Blood Pressure Pulse Oximetry Oxygen Delivery Room Air Intake/Output Intake/Output: Intake & Output 02/18/25 02/19/25 02/20/25 02/21/25 23:59 23:59 23:59 23:59 Intake Total 1000 2250 1000 Balance 1000 2250 1000 Meds/Results Medications: Active Medications Generic Name Dose Route Start Last Admin Trade Name Freq PRN Reason Stop Dose Admin Acetaminophen 650 mg 02/20/25 12:59 Acetaminophen 325 Mg Tablet PO Q6H PRN Mild Pain (1-3) or Fever Hydromorphone HCl 1 mg 02/20/25 12:59 02/20/25 16:35 Hydromorphone Hcl Inj (*Crx) 1 Mg/Ml Syr IV PUSH 1 mg Q3H PRN Administration Pain Rated 7-10 Lactated Ringer's 1,000 mls @ 125 mls/hr 02/19/25 23:10 02/21/25 01:58 Lr - Lactated Ringers Iv IV CONT 125 mls/hr .Q8H CLAUDE Administration Ondansetron HCl 4 mg 02/20/25 12:59 Ondansetron Inj 4 Mg/2 Ml Vial IV PUSH Q6H PRN Nausea And Vomiting Radiology Results: ITS Impressions Abdomen/Pelvis CT 02/19/25 20:54 IMPRESSION: Mildly thickened gallbladder wall with pericholecystic fluid suggestive of cholecystitis. Correlate clinically and if indicated follow-up ultrasound. All CT scans at this facility are performed using low dose modulation techniques as appropriate to perform exam including the following: automated exposure control; use of iterative reconstruction technique; adjustment of the mA and/or kV according to patient size (this includes techniques or standardized protocols for targeted exams where dose is matched to indication/reason for exam). Upper Quadrant Ultrasound 02/19/25 21:36 IMPRESSION: Cholelithiasis with normal gallbladder wall thickness. There is mild pericholecystic fluid. MRCP 02/20/25 12:33 IMPRESSION: 1. Cholelithiasis with pericholecystic fluid and slightly distended common bile duct; choledocholithiasis is not excluded as above. 2. Fatty liver changes and hepatomegaly also noted. Labs Labs: Laboratory Results - last 24 hr 02/19/25 02/20/25 02/20/25 20:08 04:55 12:18 WBC RBC Hgb 12.0 Hct 37.2 MCV MCH MCHC RDW Plt Count MPV Sodium 136 L Potassium 3.9 Chloride 103 Carbon Dioxide 26 Anion Gap 7 BUN 9 Creatinine 0.81 Estim Creat Clear Calc 104 Estimated GFR > 60 Glucose 108 Calcium 9.2 Magnesium Total Bilirubin 3.8 H Direct Bilirubin 1.3 H AST 764 H ALT 748 H Alkaline Phosphatase 185 H Total Protein 6.8 Albumin 3.7 Triglycerides 103 Cholesterol 190 LDL Cholesterol Direct 111 HDL Direct 45 Hep B Core Total Ab Negative 02/21/25 04:56 WBC 9.0 RBC 4.36 Hgb 11.9 L Hct 37.1 MCV 85.1 MCH 27.3 MCHC 32.1 RDW 13.4 Plt Count 304 MPV 9.2 Sodium 136 L Potassium 3.9 Chloride 102 Carbon Dioxide 28 Anion Gap 6 BUN 9 Creatinine 0.82 Estim Creat Clear Calc 103 Estimated GFR > 60 Glucose 88 Calcium 9.0 Magnesium 1.8 Total Bilirubin 3.0 H Direct Bilirubin AST 269 H ALT 528 H Alkaline Phosphatase 170 H Total Protein 6.6 Albumin 3.6 Triglycerides Cholesterol LDL Cholesterol Direct HDL Direct Hep B Core Total Ab
[2025-02-21] MEDS: HYDROmorphone HCL INJ (*CRX) 1 MG/ML SYR IV PUSH (10:38)
[2025-02-21] MEDS: ONDANSETRON INJ 4 MG/2 ML VIAL IV PUSH (10:38)
--- NOTE | 2025-02-21 11:50 | PC.NURSE ---
pt to GI lab via wheelchair for planned procedure
[2025-02-21] MEDS: INDOMETHACIN 50 MG SUPP.RECT 100 MG RECTAL (12:02)
[2025-02-21] MEDS: LACTATED RINGERS 1,000 ML 150 ML IV CONT (12:06)
--- NOTE | 2025-02-21 12:36 | WPDANESEPPF ---
Anes - Initial Pre Proc Eval Procedure: Operation Date: 02/21/25 14:30 Proposed Procedures p Endoscopic Retro Cholangiopancreatogram - Gurwinder Mahajan MD Date/Time: 02/21/25 12:36 Surgeon: Jaqui Anand MD Pre Op Diagnosis: cholelithiasis,elavated liver enzymes Patient Data Age: 29 Gender: F Height: 1.57 m Weight: 106.9 kg Last Vital Signs Temp 35.7 C L 02/21/25 11:58 Pulse 81 02/21/25 11:58 Resp 16 02/21/25 11:58 BP 135/77 02/21/25 11:58 Pulse Ox 97 02/21/25 11:58 O2 Del Method Room Air 02/21/25 11:58 Allergies Allergy/AdvReac Type Severity Reaction Status Date / Time No Known Allergies Allergy Verified 02/20/25 08:51 Home Medications ?Medication ?Instructions ?Recorded ?Confirmed ?Type vit no.95-ferrous 1 tablet PO DAILY 12/28/24 02/20/25 History fumarate 28 mg-folic acid 800 mcg tablet () Laboratory Tests 02/19/25 02/20/25 02/20/25 20:08 04:55 12:18 WBC RBC Hgb 12.0 g/dL (12.0-15.0) Hct 37.2 % (37.0-47.0) MCV MCH MCHC RDW Plt Count MPV Sodium Potassium Chloride Carbon Dioxide Anion Gap BUN Creatinine Estim Creat Clear Calc Estimated GFR Glucose Calcium Magnesium Total Bilirubin AST ALT Alkaline Phosphatase Total Protein Albumin Triglycerides 103 mg/dL (<150) Cholesterol 190 mg/dL (0-200) LDL Cholesterol Direct 111 mg/dL HDL Direct 45 mg/dL Hep B Core Total Ab Negative (Negative) 02/21/25 04:56 WBC 9.0 K/mm3 (4.5-10.0) RBC 4.36 M/mm3 (4.2-5.4) Hgb 11.9 L g/dL (12.0-15.0) Hct 37.1 % (37.0-47.0) MCV 85.1 fl (80-100) MCH 27.3 pg (26-34) MCHC 32.1 g/dl (32-36) RDW 13.4 % (11.5-14.5) Plt Count 304 k/mm3 (150-375) MPV 9.2 fl (7.4-10.4) Sodium 136 L mmol/L (137-145) Potassium 3.9 mmol/L (3.4-5.0) Chloride 102 mmol/L (98-107) Carbon Dioxide 28 mmol/L (22-30) Anion Gap 6 mmol/L (4-12) BUN 9 mg/dL (7-17) Creatinine 0.82 mg/dL (0.7-1.0) Estim Creat Clear Calc 103 ml/min Estimated GFR > 60 (59 - ) Glucose 88 mg/dL (65-110) Calcium 9.0 mg/dL (8.4-10.2) Magnesium 1.8 mg/dL (1.6-2.3) Total Bilirubin 3.0 H mg/dL (0.2-1.3) AST 269 H U/L (14-36) ALT 528 H U/L (6-35) Alkaline Phosphatase 170 H U/L (38-126) Total Protein 6.6 g/dL (6.3-8.2) Albumin 3.6 g/dL (3.5-5.1) Triglycerides Cholesterol LDL Cholesterol Direct HDL Direct Hep B Core Total Ab Patient hx anesthesia problems: none Family hx anesthesia problems: none Results Review: All pre-operative results and documents have been reviewed as part of the pre-operative evaluation. [facility] Past Medical History Medical History Gestational diabetes Surgical History Surgical History History of section, classical Family History Family History Mother Hypertension Preeclampsia Other Breast cancer Diabetes mellitus Social History Social History Social History: She is lives with her and her 1-month-old daughter. 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 She denies any alcohol or illicit drugs. 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 Code status: Full code Smoking status: Never smoker Alcohol intake: former Substance use: never Lack of Transportation: No Lack of Food: Never True Current Housing: I Have Housing Concerned About Future Housing: No Difficulty Paying Gas/Electric Bills: No Difficulty Paying for Meds: No Currently Unemployed: No Education: High School Diploma/GED Difficulty w/ Childcare or Family Care: No Spiritual care concerns: No Anes - Eval Final PreProcedure Day of Procedure 02/21/25 12:36 Patient weight: morbidly obese Heart: regular rate and rhythm Lungs: normal air movement Airway: Mallampati scale class 1 Neurological: alert and oriented Last oral intake: >/= 8 hours ASA classification: II Emergent: no Anesthetic plan: proceed Anesthesia type and monitoring: general ETT and standard monitoring Results Review: All pre-operative results and documents have been reviewed as part of the pre-operative evaluation. Informed Consent: The patient's anesthetic plan and its attendant risks and benefits were discussed with the patient/family/POA. Questions were solicited and answers provided to the satisfaction of the patient/family/POA.
--- NOTE | 2025-02-21 12:47 | P.PNIM_ITS ---
Progress Note: A&P Assessment and Plan (1) Cholelithiasis: Code(s): K80.20 - Calculus of gallbladder without cholecystitis without obstruction Status: Acute Assessment and Plan: * surgery and GI have been consulted. * MRCP showed Cholelithiasis with pericholecystic fluid and slightly distended common bile duct; choledocholithiasis * ERCP 02/21/2025 no obstructing stone at this time proceed with a cholecystect gabbie planned 02/24/2025 * IV fluids stopped * Low fat diet as tolerated and NPO at midnight Monday * pain management * Diet per surgery * antiemetics * trend liver enzymes (2) Elevated liver enzymes: Code(s): R74.8 - Abnormal levels of other serum enzymes Status: Acute Assessment and Plan: Likely secondary to #1 will likely trend down after ERCP * trend * Lipid panel * hepatitis panel negative Plan Code status: Full code per patient DVT prophylaxis: SCD's Stress ulcer prophylaxis: Pepcid PT/OT notes: Ambulatory Disposition: Patient continues admission having ERCP today and plan for cholecystectomy improved on the Monday02/24/2025 with General surgery. Patient to return discharge when stable. Time Spent With Patient Time with patient: 15 - 25 minutes Subjective Date/time seen: 02/21/25 12:47 Interval history: Patient is a 29-year-old female admitted for further evaluation and treatment of cholelithiasis and elevated liver enzymes she is undergoing a ERCP and plans for a lap rojas. 02/21/2025: Patient seen post ERCP tolerated well with no complaints other then mild sore throat. Low fat diet and trend labs plan for surgery Monday. Patient denies N/V, ABD tenderness, fever or chills. Review of Systems Review of Systems: All systems reviewed & are unremarkable except as noted in HPI and below Exam Const: General: comfortable and no acute distress HENMT: Ears: TM's normal bilaterally Face/Nose/Sinus: Normal nares present Mouth: Yes moist mucous membranes Eyes: General: appearance normal, both eyes and all related structures Sclera: sclerae normal Pupils: Equal, round and reactive pupils present Neck: Neck: supple and no JVD Resp: Effort & Inspection: normal respiratory effort Auscultation: clear to auscultation bilaterally Cardio: Rate: regular rate Rhythm: regular rhythm GI: GI Palp: Yes Soft to palpation and Yes Tenderness to palpation present (GI) (mild tenderness) Skin: General skin exam: normal color and no rashes or lesions noted Wounds: no wounds Neuro: General: gait normal Speech: normal speech Motor exam (neuro): 5/5 motor strength present throughout Sensory Exam: normal sensation Psych: Mental Status: mental status grossly normal Affect: normal affect Objective Data Vital Signs Vital Signs: Vital Signs - 24 hr 02/20/25 14:51 02/20/25 20:22 02/21/25 04:04 Temperature 97.3 F L 97.7 F 97.6 F Pulse Rate 64 60 60 Respiratory Rate 18 20 20 Blood Pressure 122/70 106/58 L 113/53 L Pulse Oximetry 98 96 98 Oxygen Delivery 02/21/25 07:45 02/21/25 11:58 Temperature 96.3 F L Pulse Rate 81 Respiratory Rate 16 Blood Pressure 135/77 Pulse Oximetry 97 Oxygen Delivery Room Air Room Air Intake/Output Intake/Output: Intake & Output 02/18/25 02/19/25 02/20/25 02/21/25 23:59 23:59 23:59 23:59 Intake Total 1000 2250 1999 Balance 1000 2250 1999 Meds/Results Medications: Active Medications Generic Name Dose Route Start Last Admin Trade Name Freq PRN Reason Stop Dose Admin Acetaminophen 650 mg 02/20/25 12:59 Acetaminophen 325 Mg Tablet PO Q6H PRN Mild Pain (1-3) or Fever Hydromorphone HCl 1 mg 02/20/25 12:59 02/21/25 10:38 Hydromorphone Hcl Inj (*Crx) 1 Mg/Ml Syr IV PUSH 1 mg Q3H PRN Administration Pain Rated 7-10 Lactated Ringer's 1,000 mls @ 125 mls/hr 02/19/25 23:10 02/21/25 10:02 Lr - Lactated Ringers Iv IV CONT 125 mls/hr .Q8H CLAUDE Administration Lactated Ringer's 1,000 mls @ 150 mls/hr 02/21/25 11:55 02/21/25 12:06 Lr - Lactated Ringers Iv IV CONT 150 mls/hr .Q6H40M CLAUDE Administration Ondansetron HCl 4 mg 02/20/25 12:59 02/21/25 10:38 Ondansetron Inj 4 Mg/2 Ml Vial IV PUSH 4 mg Q6H PRN Administration Nausea And Vomiting Radiology Results: ITS Impressions Abdomen/Pelvis CT 02/19/25 20:54 IMPRESSION: Mildly thickened gallbladder wall with pericholecystic fluid suggestive of cholecystitis. Correlate clinically and if indicated follow-up ultrasound. All CT scans at this facility are performed using low dose modulation techniques as appropriate to perform exam including the following: automated exposure control; use of iterative reconstruction technique; adjustment of the mA and/or kV according to patient size (this includes techniques or standardized protocols for targeted exams where dose is matched to indication/reason for exam). Upper Quadrant Ultrasound 02/19/25 21:36 IMPRESSION: Cholelithiasis with normal gallbladder wall thickness. There is mild perichol ecystic fluid. MRCP 02/20/25 12:33 IMPRESSION: 1. Cholelithiasis with pericholecystic fluid and slightly distended common bile duct; choledocholithiasis is not excluded as above. 2. Fatty liver changes and hepatomegaly also noted. Labs Labs: Laboratory Results - last 24 hr 02/19/25 02/20/25 02/20/25 20:08 04:55 12:18 WBC RBC Hgb 12.0 Hct 37.2 MCV MCH MCHC RDW Plt Count MPV Sodium Potassium Chloride Carbon Dioxide Anion Gap BUN Creatinine Estim Creat Clear Calc Estimated GFR Glucose Calcium Magnesium Total Bilirubin AST ALT Alkaline Phosphatase Total Protein Albumin Triglycerides 103 Cholesterol 190 LDL Cholesterol Direct 111 HDL Direct 45 Hep B Core Total Ab Negative 02/21/25 04:56 WBC 9.0 RBC 4.36 Hgb 11.9 L Hct 37.1 MCV 85.1 MCH 27.3 MCHC 32.1 RDW 13.4 Plt Count 304 MPV 9.2 Sodium 136 L Potassium 3.9 Chloride 102 Carbon Dioxide 28 Anion Gap 6 BUN 9 Creatinine 0.82 Estim Creat Clear Calc 103 Estimated GFR > 60 Glucose 88 Calcium 9.0 Magnesium 1.8 Total Bilirubin 3.0 H AST 269 H ALT 528 H Alkaline Phosphatase 170 H Total Protein 6.6 Albumin 3.6 Triglycerides Cholesterol LDL Cholesterol Direct HDL Direct Hep B Core Total Ab Quality VTE Prophylaxis VTE prophylaxis: mechanical ordered -Patient's previous records reviewed on admission -ER notes reviewed in detail on admission -discussed all findings and current treatment plan with patient/Family/POA -Consultations reviewed for recommendations -Patient's disposition for safe discharge discussed with rehabilitation case coordinator -radiology imaging, EKG and test results I have personally reviewed and interpreted unless otherwise specified Dictation performed by [employer] direct speech recognition software, therefore belt conveyor drier variants and typographical errors may occur. Hospitalist MIPS Advance Care Plan I have confirmed that the patient's Advanced Care Plan is present, code status is documented, or surrogate decision maker is listed in patient medical record.: Yes Medication Reconciliation I have utilized all available resources to obtain, update and review the patients current medications (includes all prescriptions, OTC, herbals, cannabis, and nutritional supplements).: Yes The patient is not eligible for med reconciliation; the patient is in a emergent medical situation where delaying treatment would jeopardize the patients health.: No
--- NOTE | 2025-02-21 13:22 | WPDGIPROGNO ---
Progress Note: A&P Assessment and Plan (1) Cholelithiasis: Code(s): K80.20 - Calculus of gallbladder without cholecystitis without obstruction Status: Acute Assessment and Plan: See ERCP report. . Sphincterotomy performed to prevent further common bowel duct obstruction while awaiting cholecystectomy. Surgical team on board, will decide best timing for surgery. Will sign off, please let us know if there are any other matters pertaining to our specialty. Subjective Date/time seen: 02/21/25 13:22 Objective Data Vital Signs Vital Signs: Vital Signs - 24 hr 02/20/25 14:51 02/20/25 20:22 02/21/25 04:04 Temperature 97.3 F L 97.7 F 97.6 F Pulse Rate 64 60 60 Respiratory Rate 18 20 20 Blood Pressure 122/70 106/58 L 113/53 L Pulse Oximetry 98 96 98 Oxygen Delivery 02/21/25 07:45 02/21/25 11:58 Temperature 96.3 F L Pulse Rate 81 Respiratory Rate 16 Blood Pressure 135/77 Pulse Oximetry 97 Oxygen Delivery Room Air Room Air Intake/Output Intake/Output: Intake & Output 02/18/25 02/19/25 02/20/25 02/21/25 23:59 23:59 23:59 23:59 Intake Total 1000 2250 1999 Balance 1000 2250 1999 Meds/Results Medications: Active Medications Generic Name Dose Route Start Last Admin Trade Name Freq PRN Reason Stop Dose Admin Acetaminophen 650 mg 02/20/25 12:59 Acetaminophen 325 Mg Tablet PO Q6H PRN Mild Pain (1-3) or Fever Hydromorphone HCl 1 mg 02/20/25 12:59 02/21/25 10:38 Hydromorphone Hcl Inj (*Crx) 1 Mg/Ml Syr IV PUSH 1 mg Q3H PRN Administration Pain Rated 7-10 Lactated Ringer's 1,000 mls @ 125 mls/hr 02/19/25 23:10 02/21/25 10:02 Lr - Lactated Ringers Iv IV CONT 125 mls/hr .Q8H CLAUDE Administration Lactated Ringer's 1,000 mls @ 150 mls/hr 02/21/25 11:55 02/21/25 13:21 Lr - Lactated Ringers Iv IV CONT 150 mls/hr .Q6H40M CLAUDE Infusion Ondansetron HCl 4 mg 02/20/25 12:59 02/21/25 10:38 Ondansetron Inj 4 Mg/2 Ml Vial IV PUSH 4 mg Q6H PRN Administration Nausea And Vomiting Radiology Results: ITS Impressions Abdomen/Pelvis CT 02/19/25 20:54 IMPRESSION: Mildly thickened gallbladder wall with pericholecystic fluid suggestive of cholecystitis. Correlate clinically and if indicated follow-up ultrasound. All CT scans at this facility are performed using low dose modulation techniques as appropriate to perform exam including the following: automated exposure control; use of iterative reconstruction technique; adjustment of the mA and/or kV according to patient size (this includes techniques or standardized protocols for targeted exams where dose is matched to indication/reason for exam). Upper Quadrant Ultrasound 02/19/25 21:36 IMPRESSION: Cholelithiasis with normal gallbladder wall thickness. There is mild pericholecystic fluid. MRCP 02/20/25 12:33 IMPRESSION: 1. Cholelithiasis with pericholecystic fluid and slightly distended common bile duct; choledocholithiasis is not excluded as above. 2. Fatty liver changes and hepatomegaly also noted. Labs Labs: Laboratory Results - last 24 hr 02/19/25 02/20/25 02/21/25 20:08 04:55 04:56 WBC 9.0 RBC 4.36 Hgb 11.9 L Hct 37.1 MCV 85.1 MCH 27.3 MCHC 32.1 RDW 13.4 Plt Count 304 MPV 9.2 Sodium 136 L Potassium 3.9 Chloride 102 Carbon Dioxide 28 Anion Gap 6 BUN 9 Creatinine 0.82 Estim Creat Clear Calc 103 Estimated GFR > 60 Glucose 88 Calcium 9.0 Magnesium 1.8 Total Bilirubin 3.0 H AST 269 H ALT 528 H Alkaline Phosphatase 170 H Total Protein 6.6 Albumin 3.6 LDL Cholesterol Direct 111 Hep B Core Total Ab Negative
--- NOTE | 2025-02-21 14:48 | PC.NURSE ---
pt returned from GI lab, doing well, reviewed orders and plan of care
[2025-02-22 05:13] VITALS: BP 102/56; PULSE 73; RESP 16; TEMP 36.3; O2SAT 99
[2025-02-22 05:36] LABS: Hematocrit 35.2 % (37.0-47.0); Hemoglobin 11.3 g/dL (12.0-15.0); Mean Corpuscular HGB Conc 32.1 g/dl (32-36); Mean Corpuscular Hemoglobin 27.2 pg (26-34); Mean Corpuscular Volume 84.8 fl (80-100); Platelet Count Result 351 k/mm3 (150-375); Red Blood Count 4.15 M/mm3 (4.2-5.4); White Blood Count 12.3 K/mm3 (4.5-10.0)
[2025-02-22 06:07] LABS: Alanine Aminotransferase 353 U/L (6-35); Albumin Level 3.6 g/dL (3.5-5.1); Alkaline Phosphatase 140 U/L (38-126); Anion Gap 7 mmol/L (4-12); Aspartate Amino Transferase 76 U/L (14-36); Bilirubin,Total 1.0 mg/dL (0.2-1.3); Blood Urea Nitrogen 10 mg/dL (7-17); Calcium 8.8 mg/dL (8.4-10.2); Carbon Dioxide 26 mmol/L (22-30); Chloride 104 mmol/L (98-107); Estimated CRCL calculation 112 ml/min; Estimated Glomerular Filt Rate > 60; Glucose 156 mg/dL (65-110); Magnesium 2.3 mg/dL (1.6-2.3); Potassium 3.9 mmol/L (3.4-5.0); Sodium 137 mmol/L (137-145); Total Protein 6.5 g/dL (6.3-8.2)
[2025-02-22] MEDS: ONDANSETRON INJ 4 MG/2 ML VIAL IV PUSH (08:29)
--- NOTE | 2025-02-22 09:37 | P.PNIM_ITS ---
Progress Note: A&P Assessment and Plan (1) Cholelithiasis: Code(s): K80.20 - Calculus of gallbladder without cholecystitis without obstruction Status: Acute Assessment and Plan: * surgery and GI have been consulted. * MRCP showed Cholelithiasis with pericholecystic fluid and slightly distended common bile duct; choledocholithiasis * ERCP 02/21/2025 no obstructing stone at this time proceed with a cholecystect gabbie planned 02/24/2025 * IV fluids stopped * Low fat diet as tolerated and NPO at midnight Monday * pain management * Diet per surgery * antiemetics * trend liver enzymes (2) Elevated liver enzymes: Code(s): R74.8 - Abnormal levels of other serum enzymes Status: Acute Assessment and Plan: Likely secondary to #1 will likely trend down after ERCP * trend * Lipid panel * hepatitis panel negative Plan Code status: Full code per patient DVT prophylaxis: SCD's Stress ulcer prophylaxis: Pepcid PT/OT notes: Ambulatory Disposition: Patient continues admission having ERCP today and plan for cholecystectomy improved on the Monday02/24/2025 with General surgery. Patient to return discharge when stable. Time Spent With Patient Time with patient: 15 - 25 minutes Subjective Date/time seen: 02/22/25 09:37 Interval history: Patient is a 29-year-old female admitted for further evaluation and treatment of cholelithiasis and elevated liver enzymes she is undergoing a ERCP and plans for a lap rojas. 02/22/2025: Patient was comfortable and tolerated breakfast this am. Mild mid ABD tenderness with palpation. Enzymes continue downtrend. Review of Systems Review of Systems: All systems reviewed & are unremarkable except as noted in HPI and below Exam Const: General: comfortable and no acute distress HENMT: Ears: TM's normal bilaterally Face/Nose/Sinus: Normal nares present Mouth: Yes moist mucous membranes Eyes: General: appearance normal, both eyes and all related structures Sclera: sclerae normal Pupils: Equal, round and reactive pupils present Neck: Neck: supple and no JVD Resp: Effort & Inspection: normal respiratory effort Auscultation: clear to auscultation bilaterally Cardio: Rate: regular rate Rhythm: regular rhythm Skin: General skin exam: normal color and no rashes or lesions noted Wounds: no wounds Neuro: General: gait normal Cranial nerves: Yes Equal, round and reactive pupils present Speech: normal speech Motor exam (neuro): 5/5 motor strength present throughout Sensory Exam: normal sensation Psych: Mental Status: mental status grossly normal Affect: normal affect Objective Data Vital Signs Vital Signs: Vital Signs - 24 hr 02/21/25 11:58 02/21/25 13:22 02/21/25 13:32 Temperature 96.3 F L 97.0 F L Pulse Rate 81 71 75 Respiratory Rate 16 16 18 Blood Pressure 135/77 108/63 118/77 Pulse Oximetry 97 97 100 Oxygen Delivery Room Air Simple Face Mask Room Air Oxygen Flow Rate 10 02/21/25 13:42 02/21/25 13:52 02/21/25 14:02 Temperature Pulse Rate 81 69 70 Respiratory Rate 16 20 20 Blood Pressure 145/83 H 133/85 117/76 Pulse Oximetry 100 100 100 Oxygen Delivery Room Air Room Air Room Air Oxygen Flow Rate 02/21/25 14:12 02/21/25 14:22 02/21/25 14:37 Temperature 97.5 F L 97.6 F Pulse Rate 62 67 62 Respiratory Rate 16 15 16 Blood Pressure 104/62 115/75 129/82 Pulse Oximetry 100 100 96 Oxygen Delivery Room Air Room Air Oxygen Flow Rate 02/21/25 20:00 02/21/25 21:19 02/22/25 05:13 Temperature 98.6 F 97.3 F L Pulse Rate 62 80 73 Respiratory Rate 16 20 16 Blood Pressure 101/57 L 102/56 L Pulse Oximetry 96 97 99 Oxygen Delivery Room Air Oxygen Flow Rate Intake/Output Intake/Output: Intake & Output 1102/20/25 02/21/25 02/22/25 23:59 23:59 23:59 23:59 Intake Total 1000 2250 2990 490 Balance 1000 2250 2990 490 Meds/Results Medications: Active Medications Generic Name Dose Route Start Last Admin Trade Name Freq PRN Reason Stop Dose Admin Acetaminophen 650 mg 02/20/25 12:59 Acetaminophen 325 Mg Tablet PO Q6H PRN Mild Pain (1-3) or Fever Benzocaine 1 lozenge 02/21/25 18:15 Benzocaine/Menthol (*Bkc) 18 Ea Lozenge PO PRN PRN Sore Throat Hydromorphone HCl 1 mg 02/20/25 12:59 02/21/25 10:38 Hydromorphone Hcl Inj (*Crx) 1 Mg/Ml Syr IV PUSH 1 mg Q3H PRN Administration Pain Rated 7-10 Ondansetron HCl 4 mg 02/20/25 12:59 02/22/25 08:29 Ondansetron Inj 4 Mg/2 Ml Vial IV PUSH 4 mg Q6H PRN Administration Nausea And Vomiting Radiology Results: ITS Impressions Abdomen/Pelvis CT 02/19/25 20:54 IMPRESSION: Mildly thickened gallbladder wall with pericholecystic fluid suggestive of cholecystitis. Correlate clinically and if indicated follow-up ultrasound. All CT scans at this facility are performed using low dose modulation te chniques as appropriate to perform exam including the following: automated exposure control; use of iterative reconstruction technique; adjustment of the mA and/or kV according to patient size (this includes techniques or standardized protocols for targeted exams where dose is matched to indication/reason for exam). Upper Quadrant Ultrasound 02/19/25 21:36 IMPRESSION: Cholelithiasis with normal gallbladder wall thickness. There is mild pericholecystic fluid. MRCP 02/20/25 12:33 IMPRESSION: 1. Cholelithiasis with pericholecystic fluid and slightly distended common bile duct; choledocholithiasis is not excluded as above. 2. Fatty liver changes and hepatomegaly also noted. Endo Retro Cholangiopancreatogram 02/21/25 13:27 IMPRESSION: 1. Fluoroscopy utilized during ERCP. Please refer to the ERCP procedure note for additional details. Labs Labs: Laboratory Results - last 24 hr 02/22/25 05:10 WBC 12.3 H RBC 4.15 L Hgb 11.3 L Hct 35.2 L MCV 84.8 MCH 27.2 MCHC 32.1 RDW 13.4 Plt Count 351 MPV 9.5 Sodium 137 Potassium 3.9 Chloride 104 Carbon Dioxide 26 Anion Gap 7 BUN 10 Creatinine 0.75 Estim Creat Clear Calc 112 Estimated GFR > 60 Glucose 156 H Calcium 8.8 Magnesium 2.3 Total Bilirubin 1.0 AST 76 H ALT 353 H Alkaline Phosphatase 140 H Total Protein 6.5 Albumin 3.6 Quality VTE Prophylaxis VTE prophylaxis: mechanical ordered -Patient's previous records reviewed on admission -ER notes reviewed in detail on admission -discussed all findings and current treatment plan with patient/Family/POA -Consultations reviewed for recommendations -Patient's disposition for safe discharge discussed with heel caser -radiology imaging, EKG and test results I have personally reviewed and interpreted unless otherwise specified Dictation performed by [employer] direct speech recognition software, therefore fixed wing aircraft crew chief variants and typographical errors may occur. Hospitalist MIPS Advance Care Plan I have confirmed that the patient's Advanced Care Plan is present, code status is documented, or surrogate decision maker is listed in patient medical record.: Yes Medication Reconciliation I have utilized all available resources to obtain, update and review the patients current medications (includes all prescriptions, OTC, herbals, cannabis, and nutritional supplements).: Yes The patient is not eligible for med reconciliation; the patient is in a emergent medical situation where delaying treatment would jeopardize the patients he alth.: No
--- NOTE | 2025-02-22 10:52 | P.DS_ITS ---
DS: Admitting Diagnosis Discharge Date 02/22/2025 Admitting Diagnosis biliary pancreatitis DS: Discharge Diagnosis Discharge Diagnosis (1) Biliary acute pancreatitis: Code(s): K85.10 - Biliary acute pancreatitis without necrosis or infection Status: Acute Assessment and Plan: ERCP negative, enzymes trending down, exam now benign, continue low-fat diet, stone likely has passed spontaneously (2) Choledocholithiasis: Code(s): K80.50 - Calculus of bile duct without cholangitis or cholecystitis without obstruction Status: Acute Assessment and Plan: no further obstruction on ERCP, long discussion patient regarding timing of interval cholecystectomy and she would like to go home and have procedure done as an outpatient in the next week or so DS: Summary Hospital Course Reason for hospitalization: biliary pancreatitis, choledocholithiasis Hospital Course: The patient is a 29-year-old female presenting to the emergency department complaining of upper abdominal pain. Workup in the emergency department, including imaging, was significant for biliary pancreatitis, choledocholithiasis. Given these findings, the patient was admitted to the surgical service. Upon evaluation, GI was consulted. GI performed ERCP which was unremarkable, indicating stone had likely already passed. The patient did well after the procedure and her enzymes trended towards normal. Her exam was completely benign and she was tolerating a low-fat diet. At this time, the patient will need interval cholecystectomy. A long discussion with the patient and her was had and the decision was made to have interval cholecystectomy as an outpatient in the next week or so. At this time she will be discharged home on a low-fat diet. Status at Discharge Functional status at discharge: independent ambulation Overall status at discharge: patient is progressing back to baseline Time Spent with Patient Time attestation: Total time spent providing and/or coordinating discharge services: Time spent: Less than 30 minutes Exam Const: General: cooperative, comfortable and no acute distress Resp: Auscultation: clear to auscultation bilaterally Cardio: Rate: regular rate Rhythm: regular rhythm GI: Inspection: normal to inspection GI Palp: No abdominal tenderness, Yes Soft to palpation, No Tenderness to palpation present (GI), No Guarding due to palpation present (GI) and No Rigid due to palpation DS: Data Data Completed and Pending Labs on day of discharge: Labs from last 24 hours 02/22/25 05:10 WBC 12.3 H RBC 4.15 L Hgb 11.3 L Hct 35.2 L MCV 84.8 MCH 27.2 MCHC 32.1 RDW 13.4 Plt Count 351 MPV 9.5 Sodium 137 Potassium 3.9 Chloride 104 Carbon Dioxide 26 Anion Gap 7 BUN 10 Creatinine 0.75 Estim Creat Clear Calc 112 Estimated GFR > 60 Glucose 156 H Calcium 8.8 Magnesium 2.3 Total Bilirubin 1.0 AST 76 H ALT 353 H Alkaline Phosphatase 140 H Total Protein 6.5 Albumin 3.6 Discharge Plan Discharge Attending physician on discharge: Geovanny Kinney Consulting providers: Estefany Alarcon; Carmela Alvarez; Gurwinder Mahajan; Geovanny Kinney Discharging Clinician: Chayo Whyte Anticipated Discharge Date/Time: 02/22/25 12:00 Patient Disposition: Home Activity: as tolerated Diet: low fat Patient Instructions: Antibiotic Form Patient Language: Chinese Stand Alone Forms: General Discharge Information Follow-up/Referrals: Geovanny Kinney MD [Physician, General Surgery] - 1 Week Discharge Medications: Continued PNV no.95-ferrous fumarate-FA [] 28 mg iron- 800 mcg tablet 1 tablet PO DAILY Date of admission: 02/19/25 23:11 Primary Care Provider: PHYSICIAN,RESIDENTIAL [employer] SALES MANAGER Admitting Provider: Jaqui Anand Attending physician on admission: Jaqui Anand Condition: Stable
== END 2025-02-22 12:05 | disposition home or self-care (01) ==
LOC: ANHED 23:23 → ANH2MED 02-20 08:42 → ANH3MEDSUR 02-24 07:46
PROVIDERS: Internal Medicine Gastroenterology; Nurse Practitioner; Nurse Practitioner Family; Admitting Provider General Practice; Emergency Provider Registered Nurse; Visit Provider Surgery
PROC: (CPT 43260; principal; 2025-02-21 14:30)
DX: K85.10 Biliary acute pancreatitis without necrosis or infection (principal); K80.50 Calculus of bile duct without cholangitis or cholecystitis without obstruction; R74.8 Abnormal levels of other serum enzymes; R73.9 Hyperglycemia, unspecified; Z86.32 Personal history of gestational diabetes
CPT/HCPCS: 43262; 43273; 36415; 74177; 74183; 74329; 76376; 76705; 80048; 80053; 80061; 80076; 81001; 82607; 82728; 82746; 83036; 83540; 83550; 83615; 83690; 83735; 84443; 84550; 85014; 85018; 85025; 85027; 85610; 85652; 85730; 86140; 86704; 86705; 86706; 86709; 86803; 87086; 96360; 96361; 96374; 96375; 99285; A9270; A9577; G0378; J1100; J1171; J2003; J2405; J2704; J7030; J7120; Q9966; Q9967

== ENCOUNTER 2025-03-04 01:39 | Day surgery (SDC) | payer OTHER, MEDICAID, SELFPAY ==
--- NOTE | 2025-02-24 15:32 | PC.NURSE ---
[facility] has started construction of its new state of the art ER which will open Spring 2026. With this, we anticipate parking may be a challenge for some our surgical patients and families. Parking spaces are limited but are available for all Surgical, obstetrics, and ER patients sharing this lot. If you arrive and find you are having a hard time finding a parking space, please note that we understand the challenges, please drive around the hospital and park near Hospital Entrance 1. When you enter this entrance, you can ask a volunteer to direct or take you back to the surgical waiting area to check in. We appreciate everyone?s understanding of these expected challenges while we build for your future. Report to the Outpatient Waiting Room, entrance under the green pavilion located off [address], at time _1130_ on date _[phone]_. Planned Procedure Time: _130pm_.? Time changes happen often and if your time is changed the preop area will call you the afternoon before. - You and your visitor will be asked to self-screen and do not enter if you have any COVID symptoms. Please call surgeon if you need to reschedule. - A mask is optional within the hospital at this time. Patients may have clear liquids (water, carbonated beverages, clear teas, apple juice) until 3 hours prior to surgery with a maximum of 20 ounces. - No food from midnight until time of surgery and no smoking, or chewing tobacco (or any form of nicotine). No chewing gum, candy or mints. Take only the following medications with a SIP of water on the morning of surgery: __None___ DO NOT STOP ANY OF YOUR OTHER PRESCRIPTION MEDICATIONS PRIOR TO SURGERY EXCEPT THE FOLLOWING Hold all vitamins and supplements for 3 days per anesthesiologist. Medications to discontinue per physician Date to take last dose Please no make-up, nail belarusian, hairspray, perfume, deodorant, or body powder the day of surgery.? No jewelry (including any body piercings) or valuables the day of surgery, leave them at home.? Please take a shower or bath the night before, or the morning of, surgery with an antibacterial soap.? Wear comfortable, loose fitting clothing.? - Jewelry must be removed prior to entering the operating room.? Rings and piercings that are not removed may be cut off. - The hospital will not accept responsibility for valuables.? - Please leave all valuables, including medications, at home the day of surgery. If you are going home after surgery, a licensed regional company hazmat tanker driver must drive you home.? - NO public transportation without another adult if you receive anesthesia. - We recommend that an adult stay with you for 24 hours following discharge. - We also recommend that you do not drive, make important decision, drink alcoholic beverages, or take any drugs that were not prescribed by your health care provider for at least 24 hours after your discharge time. Follow any additional instructions given to you from your surgeon. Telephone instructions given to __Taylor__and asked if any additional questions and then verbalized understanding. Patient advised to call surgeon office or pre surgery nurse liaison [phone] if any additional questions.
[2025-02-24 15:45] VITALS: BMI 42.1
[2025-03-04] VITALS (9 sets, daily range): BP systolic 112–139; BP diastolic 67–93; PULSE 61–89; RESP 12–20; TEMP 36–36.6; O2SAT 94–99
--- OUTSIDE RECORDS SUMMARY | 2025-03-04 03:04 | XMS_ITS | Continuity of Care Document ---
Author Organization [facility] Address [address] [place] [address] Assessment Encounter Date Assessment Date Assessment LastModified by Organization Details LastModified Time 01/08/2025 01/08/2025 Patient is _37__weeks . Discussed [...] Abnormal Flag Note LastModifiedBy Organization Detail LastModifiedTime 09/19/1909/18/2024 drug scree n, urine Amphetamines : negati ve Not Available [facility] [address], [place], [address], 09/18/2024 19:45:34 09/19/19 25 09/18/2024 drug scree n, urine Cannabinoids : negati ve Not Available [facility] [address], [place], [address], 09/18/2024 19:45:34 09/19/19 25 09/18/2024 drug scree n, urine Cocaine: negati ve Not Available [facility] [address], [place], [address], 09/18/2024 19:45:34 09/19/19 25 09/18/2024 drug scree n, urine Opiates: negati ve Not Available [facility] [address], [place], [address], 09/18/2024 19:45:34 09/19/19 25 09/18/2024 drug scree n, urine Phenocyclidi ne: negati ve Not Available [facility] [address], [place], [address], 09/18/2024 19:45:34 09/19/19 25 09/18/2024 drug scree n, urine Barbiturates : negati ve Not Available [facility] [address], [place], [address], 09/18/2024 19:45:34 09/19/19 25 09/18/2024 drug scree n, urine Benzodiazepi magnolia: negati ve Not Available [facility] [address], [place], [address], 09/18/2024 19:45:34 09/19/19 25 09/18/2024 drug scree n, urine Ethanol: negati ve Not Available [facility] [address], [place], [address], 09/18/2024 19:45:34 09/19/19 25 09/18/2024 drug scree n, urine Hallucinogen s: negati ve Not Available [facility] [address], [place], [address], 09/18/2024 19:45:34 09/19/19 25 09/18/2024 drug scree n, urine Inhalants: negati ve Not Available [facility] [address], [place], [address], 09/18/2024 19:45:34 09/19/19 25 09/18/2024 drug scree n, urine Anabolic Steroids: negati ve Not Available [facility] [address], [place], [address], 09/18/2024 19:45:34 09/19/19 25 09/18/2024 drug scree n, urine Other: negati ve Not Available [facility] [address], [place], [address], 09/18/2024 19:45:34 09/20/19 25 09/19/2024 CT/GC AND TRICH OMONA S VAGIN MATTHEW (RRNA ), URINE chlamydia trachomatis, PCR Negati ve negati ve Not Available [facility] (Lab) [address], [place], [address], 09/20/2024 22:39:42 09/20/19 25 09/19/2024 CT/GC AND TRICH OMONA S VAGIN MATTHEW (RRNA ), URINE neisseria gonorrhoeae, PCR Negati ve negati ve Not Available [facility] (Lab) [address], [place], [address], 09/20/2024 22:39:42 09/20/19 25 09/19/2024 CT/GC AND TRICH OMONA S VAGIN MATTHEW (RRNA ), URINE trichomonas vaginalis ribosomal RNA (rrna) Negati ve negati ve Not Available [facility] (Lab) [address] [place], [address], 09/20/2024 22:39:42 09/20/19 25 09/19/2024 CULTU RE: URINE result report SEE RESULT S BELOW Test: Cultu re: Urine Speci men Sourc e: Urine - Clean Catch Speci men Type: Urine Speci men Date: 825 Resul t Date: 2136 Resul t Statu s: Final resul t Abnor mal: No Resul ting Lab: [facility] [address] [facility] [address] Tel: CULTU RE ----- ----- ----- --- No growt h in 1 day (dete ction level of 10,00 0 colon ies / ml.) Not Available [facility] (Lab) [address], [place], [address], 09/20/2024 22:39:42 11/14/1911/13/2024 HEMAT OCRIT (HCT) HCT 37.9 % (based on docume nted legal sex) 34.0-[address] [facility] (Lab) [address], [place], [address], 11/14/2024 11:04:11 11/14/19 25 11/13/2024 HEMOG LOBIN (HGB) HGB 12.5 g/dL (based on docume nted legal sex) 11.6-[address] [facility] (Lab) [address], [place], [address], 11/14/2024 11:04:12 11/14/19 25 11/13/2024 HIV 1/2 ANTIG EN/AN TIBOD Y, REFLE X CONFI RMATI ON HIV antigen/anti body Nonrea ctive nonrea ctive HIV-1 antig en and HIV-1 /HIV- 2 antib odies were not detec anatoly. No labor atory evide nce of HIV infec tion. Not Available [facility] (Lab) [address], [place], [address], 11/14/2024 11:04:12 11/14/19 25 11/13/2024 RPR SCREE N, REFLE X TITER /CONF IRMAT ION RPR qualitative Nonrea ctive nonrea ctive Not Available [facility] (Lab) [address] [place], [address], 11/14/2024 11:04:13 01/04/20 25 01/03/2025 CULTU RE: GROUP B STREP SCREE N, [...] Resul ting Lab: [facility] [address] [facility] [address] Tel: CULTU RE ----- ----- ----- --- No Group B strep isola anatoly at 2 days (vane ctive broth enhan cemen t) Not Available [facility] (Lab) [address], [place], [address], 01/06/2025 16:53:10 10/10/19 25 10/09/2024 imagi ng/di agnos tic resul t No observ ation record ed. [facility] [place] [id number] [place], [address], 10/09/2024 19:08:36 10/10/19 25 10/09/2024 imagi ng/di agnos tic resul t No observ ation record ed. [address], [address], 10/13/2024 16:52:21 10/31/1910/30/2024 US, obste tric, follo w-up No observ ation record ed. [email or web address] [place] [address] [place], [address], 11/01/2024 11:10:19 10/31/19 25 10/30/2024 US, obste tric, follo w-up No observ ation record ed. [email or web address] [place], [address], 11/02/2024 14:34:18 11/28/19 25 11/27/2024 US, obste tric, follo w-up No observ ation record ed. [facility] [address] [facility], [place], [address], 12/04/2024 17:07:21 11/28/19 25 11/27/2024 US, obste tric, follo w-up No observ ation record ed. [address], [place], [address], 12/03/2024 12:50:17 12/07/19 25 12/06/2024 US, obste tric, follo w-up No observ ation record ed. [address], [place], [address], 12/06/2024 16:17:23 12/24/19 25 12/23/2024 US, obste tric, follo w-up No observ ation record ed. [address], [place], [address], 01/06/2025 15:29:55 12/31/19 25 12/30/2024 US, obste tric, follo w-up No observ ation record ed. [address], [address], 01/03/2025 15:28:08 Result Notes None recorded. Problems Name Problem SNOMED Code Status Onset Date Resolution Date Notes Provider Name and Address Organization Details Recorded Time Body mass index 40+ - severely obese 126520324 Completed Mai barrow [facility] 15:25:04 Pregnanc y 45808776 Completed 202401/17/2025 Mai barrow [facility] 16:20:16 Diabetes mellitus 93648207 Completed 2024 Toujeo 100 units, humalog 4066/86 , metformi n 1000 BID 12/27 mfm monitori ng sugars nst 32wks Level II us [facility] 11/27/24 Antenata l testing schedule d [facility] to start 12/05/24 2xwkly recommen ded [place] led [facility] 2x wkly NSTs , MALI and serial growth us recommen d delivery [address] [facility] 5 18:17:18 Type 2 diabetes mellitus 02466805 Active 2024 Lianet Goins [facility] 5 09:57:33 Gestatio nal diabetes mellitus class A2 35209244 Active 2024 insulin will need nst 32wks Lianet Goins [facility] 5 09:58:02 Diabetes mellitus 60518975 Active 2024 Toujeo 100 units, humalog 4066/86 , metformi n 1000 BID 12/27 mfm monitori ng sugars nst 32wks Level II us [facility] 11/27/24 Antenata l testing schedule d [facility] to start 12/05/24 2xwkly recommen ded [place] led [facility] 2x wkly NSTs , MALI and serial growth us recommen d delivery 37 [address] [facility], [facility] 5 18:17:19 Problem Notes None recorded. Procedures Surgical History Date Name Laterality Status Provider Name and Address Organization Details Recorded Time 5 Caesarean Section completed [facility] 01/17/2025 16:21:13 5 Date of Last Pap Smear completed [facility] 07/31/2024 15:34:14 Imaging Results None recorded. [...] Updated DateTime 01/08/2025 157.48 cm 46.8 kg/m2 236651.65 g 134/89 mm[Hg] Tawnya Gross [facility] 01/08/2025 16:02:55 Social History Question Answer Notes LastModified by Organizat ion Details LastModified Time Tobacco Smoking Status Never Smoker Mai Dias [facility], [facility] 05/29/2024 17:17:30 Do You Have An Advance Directive? No [email or web address] Information n ot available 11/13/2024 If You Are , What Was Your Level Of Alcohol Consumption Prior To ? Occasional [email or web address] Information not available 08/21/2024 Are You Blind [...] Or The Highest Degree You Have Received? [id number] Information not available 05/29/2024 Are There Any [...] Has Tobacco Cessation Counseling Been Provided? No Information not available 11/13/2024 Do You Have Difficulty Walking Or Climbing Stairs? No Information not available 05/29/2024 Sex: Female Functional Status Question Answer Note LastModified by Organizat ion Details LastModified Time Do you use any illicit or recreational drugs? No Information not available 05/29/2024 Do you or have you ever used any other forms of tobacco or nicotine? No [email or web address] Information not available 11/13/2024 What is your level of alcohol consumption? None [email or web address] Information not available 08/21/2024 Are you currently employed? Yes Information not available 05/29/2024 Are you able to walk independently without assistance or assistive devices? [email or web address] Information not available 05/29/2024 Are you able to care for yourself independently? 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 No Information not available 05/29/2024 What is your exercise level? None Information not available 05/29/2024 Mental Status Question Answer Note LastModified by Organization D etails LastModified Time Do you feel stressed (tense, restless, nervous, or anxious, or unable to sleep at night)? [id number] Information not available 05/29/2024 Family History Relationship Description Onset Age of this Age Resolved Age Notes LastModified by Organization Details LastModified Time Mother High risk 40 Not available 2024 17:15:39 Maternal Grandmother Diabetes mellitus Not available 2024 17:15:39 Medical History Condition Response Allergies (Food, seasonal, environmental ) N Other N Drug/Latex Allergies/Reactions N Blood Transfusion N Breast Cancer N Dermatologic Disorders N Lung Disease N Defects or Inherited Disease N Breast Problem N Gestational Diabetes Y Hematologic disorders N Anesthesia Complications N History of STI N Deep Vein Thrombosis N Polycystic ovary syndrome N Anxiety Disorder N Autoimmune disease N Arthritis N Polyps N Infertility N Acid Reflux (GERD) N History of abnormal pap N Cancer N Varicosities N Stroke N Neurologic/Epilepsy N Endometriosis N High Cholesterol N Fibromyalgia N Headaches N Kidney Disease N Heart Problems N Thyroid Problems N Kidney or Bladder Problems N GI Problems N Eating Disorder [...] ICD10 Code Diagnosis IMO Codes Diagnosis Note [id number] Shira Ruiz [facility] [address] [place] [address] 12/11/2024 13:50:52 12/11/2024 15:31:34 Gestation period, 33 weeks 90134524 Z3A.33 2359591 [id number] [facility] [address] [place] [address] 12/25/2024 15:56:11 12/25/2024 16:18:29 Gestation period, 35 weeks 74069766 Z3A.35 [id number] Shira Ruiz [facility] [address] [place] [address] 01/03/2025 16:21:45 01/03/2025 16:41:53 Gestation period, 36 weeks 29282178 Z3A.36 [id number] [id number] Shira Ruiz [facility] [address] [place] [address] 01/08/2025 15:51:20 01/08/2025 16:21:17 Gestation period, 37 weeks 02829937 Z3A.37 [id number] Health Concerns Section Related Observation LastModified by Organization Detai ls LastModified Time None Recorded Concern Status LastModified by Organization Details LastModified Time None Recorded Payers Encounter Date Sequence Insurance Name Policy Number Policy Laird Covered Member ID Laird Member ID Guarantor Name 01/08/2025 1 [facility] - DOS ON OR AFTER 20 (MEDICAID REPLACEMENT - HMO) Fannie Martin [id number] Fannie Martin Notes Date Note Type Note Provider Name and Address Organization Details Recorded Time 01/08/2025 text/html Generic HPI TemplateReported by Patient Shira Ruiz CNM [address], [place], [address], [facility] 01/08/2025 16:15:57 OBGyn Episode Ob Episode Information Episode Created Date Number of Fetuses Patient Bloodtype Patient rh Status Prepregnancy Weight lbs Domestic Partner Domestic Partner Phone Father Name Icicle Machine Operator Status 08/01/19 25 1 O Positive 239 Bubba CLOSED Fetus Data First Name Last Name Admitted to NICU Weight (g) Sex Living Outcome Pediatric Complications Fetus ID Race Codes Race Delivery Type Lylah false 3061.74 6 F true Full Term [id number] Primary Problems Problem Notes Problem Name Start Date End Date Resolution Snomed Code Not e Diabetes mellitus 08/21/2024 51671251 T oujeo 100 units, humalog /, metformin 1000 BID 12/27 mfm monitoring sugars nst 32wksLevel II us [facility] 11/27/24Antenatal testing scheduled [facility] to start 12/05/24 2xwkly recommended Scheduled [facility] 2x wkly NSTs , MALI and serial growth usrecommend delivery 37 Body mass index 40+ - severely obese 575795713 Denis Calculation Initial Denis Date Initial Exam [...] Latest Days Gestation 0 01/30/20 25 0 Pre-gianni Flowsheet Flowsheet Date 07/31/2024 Breen Score Blood Edema Fundus Height Fundus Units Glucose Ketones Leukocytes Nitrite Labor Signs Protein Cervic Dilation Cervic Effacement Cervic Station Type Weight in lbs Pre/Post Dialysis Refused 241.60706869857 BP Diastolic BP Location Tested BP Systolic [...] Weight in lbs Pre/Post Dialysis Refused Weight 238.042332109713 BP Diastolic BP Location Tested BP Systolic BP Type 75 112 Fetus Heart Rate Present A 137 Present Fetus Movement A No Comments Patient states that [facility] is m onitoring blood sugars. Patient states that is having some discharge. reviewed precautions and education unsure if movement, has us at 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 saw [facility] yesterday, doing well +FM f/u 4 weeks here in office, precautions and education Flowsheet Date 10/16/2024 Breen Score Blood Edema Fundus Height Fundus Units Glucose Ketones Leukocytes Nitrite Labor Signs Protein Cervic Dilation Cervic Effacement Cervic Station Type Weight in lbs Pre/Post Dialysis Refused Weight 240.794565035050 BP Diastolic BP Location Tested BP Systolic BP Type 74 L arm 110 sitting Fetus Heart Rate Present Fetus Movement A Yes Comments doing well sees [facility] soon for US, texting bs to them, +FM, plan 4 week f/u here, education and precautions Flowsheet Date 11/13/2024 Breen Score Blood Edema Fundus Height Fundus Units Glucose Ketones Leukocytes Nitrite Labor Signs Protein Cervic Dilation Cervic Effacement Cervic Station Type Weight in lbs Pre/Post Dialysis Refused Weight 244.909422587786 BP Diastolic BP Location Tested BP Systolic BP Type 85 126 Fetus Heart Rate Present Fetus Movement A Yes Comments +FM, doing well seeing [facility] f or testing, bs logs at [facility], ok for tdap, precautions and educations f/u 2 weeks Flowsheet Date 11/27/2024 Breen Score Blood Edema Fundus Height Fundus Units Glucose Ketones Leukocytes Nitrite Labor Signs Protein Cervic Dilation Cervic Effacement Cervic Station Type Weight in lbs Pre/Post Dialysis Refused Weight 247.747144138894 BP Diastolic BP Location Tested BP Systolic BP Type 95 L arm 143 sitting Fetus Heart Rate Present Fetus Movement A Yes Comments testing at [facility], managing bs, doing well +FM, call next time for preadmission,reviewed kick counts f/u 2 weeks Flowsheet Date 12/11/2024 Breen Score Blood Edema Fundus Height Fundus Units Glucose Ketones Leukocytes Nitrite Labor Signs Protein Cervic Dilation Cervic Effacement Cervic Station Type Weight in lbs Pre/Post Dialysis Refused Weight 249.991005259057 BP Diastolic BP Location Tested BP Systolic BP Type 83 L arm 134 sitting Fetus Heart Rate Present Fetus Movement A Yes Comments +FM. seeing [facility] for nst an d us plan iol around 39 weeks, education and precautions, vtx by us at [facility], f/u here in 2 weeks, call [facility] for preadmission Flowsheet Date 12/25/2024 Breen Score Blood Edema Fundus Height Fundus Units Glucose Ketones Leukocytes Nitrite Labor Signs Protein Cervic Dilation Cervic Effacement Cervic Station Type Weight in lbs Pre/Post Dialysis Refused Weight 252.621949275931 BP Diastolic BP Location Tested BP Systolic BP Type 82 L arm 115 sitting Fetus Heart Rate Present A 138 Present Fetus Movement A Yes Comments +FM seeing [facility] monday , glaser s been increasing insulin, fastings still elevated, gbs next week, preadmit scheduled.precautions and education, f/u one week Flowsheet Date 01/03/2025 Breen Score Blood Edema Fundus Height Fundus Units Glucose Ketones Leukocytes Nitrite Labor Signs Protein Cervic Dilation Cervic Effacement Cervic Station Type Weight in lbs Pre/Post Dialysis Refused Weight 256.057417325704 BP Diastolic BP Location Tested BP Systolic [...] Weight in lbs Pre/Post Dialysis Refused Weight 256.487752412181 BP Diastolic BP Location Tested BP Systolic [...] Weight in lbs Pre/Post Dialysis Refused Weight 246.850748686810 BP Diastolic BP Location Tested BP Systolic [...]
--- OUTSIDE RECORDS SUMMARY | 2025-03-04 03:04 | XMS_ITS | Data Portability ---
Author Organization [facility] [place] Address [address] [place] [address] Assessment Encounter Date Assessment Date Assessment LastModified by Organization Details LastModified Time 12/25/2024 12/25/2024 Patient is _35__weeks . Discussed plan. Not available 12/25/2024 16:18:05 01/03/2025 01/03/2025 Patient is _36__weeks . Discussed plan. [email or web address] Not available 01/03/2025 16:36:06 01/08/2025 01/08/2025 Patient [...] Resul ting Lab: [facility] [address] [facility] [address] Tel: CULTU RE ----- ----- ----- --- No Group B strep isola anatoly at 2 days (vane ctive broth enhan cemen t) Not Available [facility] (Lab) [address], [place], [address], 01/06/2025 16:53:10 11/28/19 25 11/27/2024 US, obste tric, follo w-up No observ ation record ed. [email or web address] [facility] [address], [place], [address], 12/04/2024 17:07:21 11/28/19 25 11/27/2024 US, obste tric, follo w-up No observ ation record ed. [address], [address], 12/03/2024 12:50:17 12/07/19 25 12/06/2024 US, obste tric, follo w-up No observ ation record ed. [address], [address], 12/06/2024 16:17:23 12/24/19 25 12/23/2024 US, obste tric, follo w-up No observ ation record ed. [address], [address], 01/06/2025 15:29:55 12/31/19 25 12/30/2024 US, obste tric, follo w-up No observ ation record ed. [address], [address], 01/03/2025 15:28:08 Result Notes None recorded. Problems Name Problem SNOMED Code Status Onset Date Resolution Date Notes Provider Name and Address Organization Details Recorded Time Body mass index 40+ - severely obese 486808849 Completed Mai Dias [facility] 5 15:25:04 Pregnanc y 86947873 Completed 202401/17/2025 Mai Dias [facility] 5 16:20:16 Diabetes mellitus 22323099 Completed 2024 Toujeo 100 units, humalog 40/86 , metformi n 1000 BID 12/27 mfm monitori ng sugars nst 32wks Level II us [facility] 11/27/24 Antenata l testing schedule d [facility] to start 12/05/24 2xwkly recommen ded [place] led [facility] 2x wkly NSTs , MALI and serial growth us recommen d [facility] 18:17:18 Type 2 diabetes mellitus 34615888 Active 2024 Lianet Jimeneztz [facility] 5 09:57:33 Gestatio nal diabetes mellitus class A2 42318924 Active 2024 insulin will need nst 32wks Lianet Jimeneztz [facility] 5 09:58:02 Diabetes mellitus 23930882 Active 2024 Toujeo 100 units, humalog 4066/86 , metformi n 1000 BID 12/27 mfm monitori ng sugars nst 32wks Level II us [facility] 11/27/24 Antenata l testing schedule d [facility] to start 12/05/24 2xwkly recommen ded [place] led [facility] 2x wkly NSTs , MALI and serial growth us recommen d delivery [address] [facility] 5 18:17:19 Problem Notes None recorded. Procedures Surgical History Date Name Laterality Status Provider Name and Address Organization Details Recorded Time 5 Caesarean Section completed [facility] 01/17/2025 16:21:13 5 Date of Last Pap Smear completed [facility] 07/31/2024 15:34:14 Imaging Results [...] Updated DateTime 12/25/2024 157.48 cm 46.1 kg/m2 207693.28 g 115/82 mm[Hg] [facility] 12/25/2024 16:06:47 Date Recorded Body height Body mass index (BMI) Body weight Systolic And Diastolic Provider Name and Address Organization Details Last Updated DateTime 01/03/2025 157.48 cm 46.8 kg/m2 478416.65 g 139/86 mm[Hg] [facility] 01/03/2025 16:29:34 Date Recorded Body height Body mass index (BMI) Body weight Systolic And Diastolic Provider Name and Address Organization Details Last Updated DateTime 01/08/2025 157.48 cm 46.8 kg/m2 066753.65 g 134/89 mm[Hg] [facility] 01/08/2025 16:02:55 Date Recorded Body height Body mass index (BMI) Body weight Systolic And Diastolic Provider Name and Address Organization Details Last Updated DateTime 01/17/2025 157.48 cm 45 kg/m2 931162.72 g 138/63 mm[Hg] Mai Dias [facility] 01/17/2025 16:20:35 Social History Question Answer Notes LastModified by Organizat ion Details LastModified Time Tobacco Smoking Status Never Smoker Mai Dias [facility] 05/29/2024 17:17:30 Do You Have An Advance Directive? No [email or web address] Information n ot available 11/13/2024 If You Are , What Was Your Level Of Alcohol Consumption Prior To ? Occasional [email or web address] Information not available 08/21/2024 Are You Blind [...] Or The Highest Degree You Have Received? [id number] Information not available 05/29/2024 Are There Any [...] Has Tobacco Cessation Counseling Been Provided? No [email or web address] Information not available 11/13/2024 Do You Have Difficulty Walking Or Climbing Stairs? No Information not available 05/29/2024 Sex: Female Functional Status Question Answer Note LastModified by Organizat ion Details LastModified Time Do you use any illicit or recreational drugs? No Information not available 05/29/2024 Do you or have you ever used any other forms of tobacco or nicotine? No [email or web address] Information not available 11/13/2024 What is your level of alcohol consumption? None Information not available 08/21/2024 Are you currently employed? Yes Information not available 05/29/2024 Are you able to walk independently without assistance or assistive devices? [email or web address] Information not available 05/29/2024 Are you able to care for yourself independently? 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 No Information not available 05/29/2024 What is your exercise level? None Information not available 05/29/2024 Mental Status Question Answer Note LastModified by Organization D etails LastModified Time Do you feel stressed (tense, restless, nervous, or anxious, or unable to sleep at night)? [id number] Information not available 05/29/2024 Family History Relationship [...] ICD10 Code Diagnosis IMO Codes Diagnosis Note [id number] Carlos Lewis MD [place] [address],[place] [address] 05/29/2024 16:23:52 05/29/2024 17:59:12 Uterine size for dates discrepancy 340619365 O26.841 Z3A.01 [id number] Carlos Lewis MD [place] [address],[place] [address] 05/29/2024 16:24:48 05/30/2024 16:45:05 Venereal disease screening 881073649 Z11.3 Amenorrhea 78565373 N91. 2 This patient is a 28-year-ol [...] confirmati on of viability. Discussed miscarriag e. [id number] Carlos Lewis MD [place] [address],[place] [address] 06/05/2024 14:25:28 06/05/2024 14:55:57 Uncertain viability of 978759449 O36.80X0 Z36.87 Z3A.01 [id number] LUCIANO FRANCISCO MD [place] [address],[place] [address] 06/19/2024 14:29:08 06/19/2024 14:48:15 [id number] LUCIANO FRANCISCO MD [place] [address],[place] [address] 06/19/2024 14:29:45 06/19/2024 16:02:14 test positive 863167513 Z32.01 1. Exam today within normal limits.2. [...] orders given today. Chlamydia trachomatis infection in 8612945599 101 O23.91 +chlamydia on screening, treatedrep eat CAROLA at 24 weeks [id number] Carlos Lewis MD [place] [address],[place] [address] 07/24/2024 14:00:26 07/24/2024 14:44:32 screening 962850867 Z36.82 Z3A.12 [id number] Carlos Lewis MD [place] [address],[place] [address] 07/31/2024 15:01:41 07/31/2024 16:11:41 Routine care 972913663 Z34.90 [id number] Shira Ruiz CNM [place] [address],[place] [address] 08/21/2024 09:44:53 08/21/2024 10:12:07 Gestation period, 17 weeks 93212580 Z3A.17 7876245 Diabetes mellitus 803405 09 E11.9 51729 [id number] Shira Ruiz CNM [place] [address],[place] [address] 09/18/2024 11:30:05 09/18/2024 15:17:56 Gestation period, 21 weeks 77295968 Z3A.21 8950092 [id number] Shira Ruiz CNM [place] [address],[place] [address] 10/16/2024 09:42:30 10/16/2024 10:06:42 Gestation period, 25 weeks 21945524 Z3A.25 7942724 [id number] Shira Ruiz [facility] [address],[place] [address] 11/13/2024 14:00:59 11/13/2024 14:38:49 Gestation period, 29 weeks 43894757 Z3A.29 9066487 [id number] Shira Ruiz [facility] [address],[place] [address] 11/27/2024 12:31:58 11/27/2024 13:55:04 Gestation period, 31 weeks 39915882 Z3A.31 7675927 [id number] Shira Ruiz [facility] [address],[place] [address] 12/11/2024 13:50:52 12/11/2024 15:31:34 Gestation period, 33 weeks 93293845 Z3A.33 8301491 [id number] Shira Ruiz [facility] [address],[place] [address] 12/25/2024 15:56:11 12/25/2024 16:18:29 Gestation period, 35 weeks 41586466 Z3A.35 8857321 [id number] [facility] [address],[place] [address] 01/03/2025 16:21:45 01/03/2025 16:41:53 Gestation period, 36 weeks 34572700 Z3A.36 1062255 [id number] [facility] [address],[place] [address] 01/08/2025 15:51:20 01/08/2025 16:21:17 Gestation period, 37 weeks 34353066 Z3A.37 8168091 [id number] [facility] [address] [address] 01/10/2025 08:50:03 01/10/2025 09:41:24 [id number] Carlos Lewis MD [place] [address] [address] 01/17/2025 15:53:55 01/20/2025 09:07:04 Postoperative visit 687258748 Z48.89 [id number] This patient is a 29-year-ol d female [...] Laird Member ID Guarantor Name 01/16/2025 1 [facility] ([facility] [id number] Fannie Martin [id number] Fannie Martin 03/03/2025 1 [facility] - DOS ON OR AFTER 20 (MEDICAID REPLACEMENT - HMO) Fannie Martin [id number] Fannie Martin Notes Date Note Type Note Provider Name and Address Organization Details Recorded Time 12/25/2024 text/html Generic HPI TemplateReported by Patient Shira Ruiz CNM [address], [place], [address], [facility] 12/25/2024 16:18:25 01/03/2025 text/html Generic HPI TemplateReported by Patient [address], [place], [address], [facility] 01/03/2025 16:36:50 01/08/2025 text/html Generic HPI TemplateReported by Patient Shira Roth SHUKRI Ruiz [address], [place], [address], [facility] 01/08/2025 16:15:57 01/17/2025 text/html This patient [...] good. Carlos Lewis MD [address], [place], [address], [facility] 01/17/2025 18:31:35 OBGyn Episode Ob Episode Information Episode Created Date Number of Fetuses Patient Bloodtype Patient rh Status Prepregnancy Weight lbs Domestic Partner Domestic Partner Phone Father Name Supervisor [employer] Status 08/01/19 25 1 O Positive 239 Bubba CLOSED Fetus Data First Name Last Name Admitted to NICU Weight (g) Sex Living Outcome Pediatric Complications Fetus ID Race Codes Race Delivery Type Lylah false 3061.74 6 F true Full Term [id number] Primary Problems Problem Notes Problem Name Start Date End Date Resolution Snomed Code Not e Diabetes mellitus 08/21/2024 22806047 T oujeo 100 units, humalog 40/66/, metformin 1000 BID 12/27 mfm monitoring sugars nst 32wksLevel II us [facility] 11/27/24Antenatal testing scheduled [facility] start 12/05/24 2xwkly recommended Scheduled [facility] 2x wkly NSTs , MALI and serial growth usrecommend delivery 37 Body mass index 40+ - severely obese 368428955 Denis Calculation Initial Denis Date Initial Exam [...] Type Weight in lbs Pre/Post Dialysis Refused 241.28080220079 BP Diastolic BP Location Tested BP Systolic [...] Weight in lbs Pre/Post Dialysis Refused Weight 238.424153014130 BP Diastolic BP Location Tested BP Systolic BP Type 75 112 Fetus Heart Rate Present A 137 Present Fetus Movement A No Comments Patient states that [facility] is m onitoring blood sugars. Patient states that is having some discharge. 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 saw [facility] yesterday, doing well +FM f/u 4 weeks here in office, precautions and education Flowsheet Date 10/16/2024 Breen Score Blood Edema Fundus Height Fundus Units Glucose Ketones Leukocytes Nitrite Labor Signs Protein Cervic Dilation Cervic Effacement Cervic Station Type Weight in lbs Pre/Post Dialysis Refused Weight 240.095629776677 BP Diastolic BP Location Tested BP Systolic BP Type 74 L arm 110 sitting Fetus Heart Rate Present Fetus Movement A Yes Comments doing well sees [facility] soon for US, texting bs to them, +FM, plan 4 week f/u here, education and precautions Flowsheet Date 11/13/2024 Breen Score Blood Edema Fundus Height Fundus Units Glucose Ketones Leukocytes Nitrite Labor Signs Protein Cervic Dilation Cervic Effacement Cervic Station Type Weight in lbs Pre/Post Dialysis Refused Weight 244.172547501709 BP Diastolic BP Location Tested BP Systolic BP Type 85 126 Fetus Heart Rate Present Fetus Movement A Yes Comments +FM, doing well seeing [facility] f or testing, bs logs at [facility], ok for tdap, precautions and educations f/u 2 weeks Flowsheet Date 11/27/2024 Breen Score Blood Edema Fundus Height Fundus Units Glucose Ketones Leukocytes Nitrite Labor Signs Protein Cervic Dilation Cervic Effacement Cervic Station Type Weight in lbs Pre/Post Dialysis Refused Weight 247.015644962552 BP Diastolic BP Location Tested BP Systolic BP Type 95 L arm 143 sitting Fetus Heart Rate Present Fetus Movement A Yes Comments testing at [facility], managing bs, doing well +FM, call next time for preadmission,reviewed kick counts f/u 2 weeks Flowsheet Date 12/11/2024 Breen Score Blood Edema Fundus Height Fundus Units Glucose Ketones Leukocytes Nitrite Labor Signs Protein Cervic Dilation Cervic Effacement Cervic Station Type Weight in lbs Pre/Post Dialysis Refused Weight 249.327528850052 BP Diastolic BP Location Tested BP Systolic BP Type 83 L arm 134 sitting Fetus Heart Rate Present Fetus Movement A Yes Comments +FM. seeing [facility] for nst an d us plan iol around 39 weeks, education and precautions, vtx by us at [facility], f/u here in 2 weeks, call [facility] for preadmission Flowsheet Date 12/25/2024 Breen Score Blood Edema Fundus Height Fundus Units Glucose Ketones Leukocytes Nitrite Labor Signs Protein Cervic Dilation Cervic Effacement Cervic Station Type Weight in lbs Pre/Post Dialysis Refused Weight 252.828446004796 BP Diastolic BP Location Tested BP Systolic BP Type 82 L arm 115 sitting Fetus Heart Rate Present A 138 Present Fetus Movement A Yes Comments +FM seeing [facility] monday , glaser s been increasing insulin, fastings still elevated, gbs next week, preadmit scheduled.precautions and education, f/u one week Flowsheet Date 01/03/2025 Breen Score Blood Edema Fundus Height Fundus Units Glucose Ketones Leukocytes Nitrite Labor Signs Protein Cervic Dilation Cervic Effacement Cervic Station Type Weight in lbs Pre/Post Dialysis Refused Weight 256.059204314584 BP Diastolic BP Location Tested BP Systolic [...] Weight in lbs Pre/Post Dialysis Refused Weight 256.929093540177 BP Diastolic BP Location Tested BP Systolic [...] Weight in lbs Pre/Post Dialysis Refused Weight 246.149862752468 BP Diastolic BP Location Tested BP Systolic [...]
--- OUTSIDE RECORDS SUMMARY | 2025-03-04 03:04 | XMS_ITS | Continuity of Care Document ---
Author Organization [facility] [place] Address [address] [place] [address] Assessment No assessment recorded. Plan of Treatment Reminders Order Date Submit [...] Abnormal Flag Note LastModifiedBy Organization Detail LastModifiedTime 09/19/19 25 09/18/2024 drug scree n, urine Amphetamines : negati ve Not Available [place] [address], [place], [address], 09/18/2024 19:45:34 09/19/19 25 09/18/2024 drug scree n, urine Cannabinoids : negati ve Not Available [place] [address], [place], [address], 09/18/2024 19:45:34 09/19/19 25 09/18/2024 drug scree n, urine Cocaine: negati ve Not Available [place] [address], [place], [address], 09/18/2024 19:45:34 09/19/19 25 09/18/2024 drug scree n, urine Opiates: negati ve Not Available [place] [address], [place], [address], 09/18/2024 19:45:34 09/19/19 25 09/18/2024 drug scree n, urine Phenocyclidi ne: negati ve Not Available [facility] [address], [place], [address], 09/18/2024 19:45:34 09/19/19 25 09/18/2024 drug scree n, urine Barbiturates : negati ve Not Available [facility] [address], [place], [address], 09/18/2024 19:45:34 09/19/19 25 09/18/2024 drug scree n, urine Benzodiazepi magnolia: negati ve Not Available [place] [address], [place], [address], 09/18/2024 19:45:34 09/19/19 25 09/18/2024 drug scree n, urine Ethanol: negati ve Not Available [facility] [address], [place], [address], 09/18/2024 19:45:34 09/19/19 25 09/18/2024 drug scree n, urine Hallucinogen s: negati ve Not Available [facility] [address], [place], [address], 09/18/2024 19:45:34 09/19/19 25 09/18/2024 drug scree n, urine Inhalants: negati ve Not Available [place] [address], [place], [address], 09/18/2024 19:45:34 09/19/19 25 09/18/2024 drug scree n, urine Anabolic Steroids: negati ve Not Available [facility] [address], [place], [address], 09/18/2024 19:45:34 09/19/19 25 09/18/2024 drug scree n, urine Other: negati ve Not Available [facility], [place], [address], 09/18/2024 19:45:34 09/20/19 25 09/19/2024 CT/GC AND TRICH OMONA S VAGIN MATTHEW (RRNA ), URINE chlamydia trachomatis, PCR Negati ve negati ve Not Available [facility] (Lab) [address] [facility], [place], [address], 09/20/2024 22:39:42 09/20/19 25 09/19/2024 CT/GC AND TRICH OMONA S VAGIN MATTHEW (RRNA ), URINE neisseria gonorrhoeae, PCR Negati ve negati ve Not Available [facility] (Lab) [address] [facility], [place], [address], 09/20/2024 22:39:42 09/20/19 25 09/19/2024 CT/GC AND TRICH OMONA S VAGIN MATTHEW (RRNA ), URINE trichomonas vaginalis ribosomal RNA (rrna) Negati ve negati ve Not Available [facility] (Lab) [address] [facility], [place], [address], 09/20/2024 22:39:42 09/20/19 25 09/19/2024 CULTU RE: URINE result report SEE RESULT S BELOW Test: Cultu re: Urine Speci men Sourc e: Urine - Clean Catch Speci men Type: Urine Speci men Date: 825 Resul t Date: 2136 Resul t Statu s: Final resul t Abnor mal: No Resul ting Lab: [facility] [address] [facility] [address] Tel: CULTU RE ----- ----- ----- --- No growt h in 1 day (dete ction level of 10,00 0 colon ies / ml.) Not Available [facility] (Lab) [address] [facility], [place], [address], 09/20/2024 22:39:42 11/14/1911/13/2024 HEMAT OCRIT (HCT) HCT 37.9 % (based on docume nted legal sex) 34.0-4 5.0 Not Available [facility] (Lab) [address] [facility], [place], [address], 11/14/2024 11:04:11 11/14/19 25 11/13/2024 HEMOG LOBIN (HGB) HGB 12.5 g/dL (based on docume nted legal sex) 11.6-1 5.4 Not Available [facility] (Lab) [address] [facility], [place], [address], 11/14/2024 11:04:12 11/14/19 25 11/13/2024 HIV 1/2 ANTIG EN/AN TIBOD Y, REFLE X CONFI RMATI ON HIV antigen/anti body Nonrea ctive nonrea ctive HIV-1 antig en and HIV-1 /HIV- 2 antib odies were not detec anatoly. No labor atory evide nce of HIV infec tion. Not Available [facility] (Lab) [address] [facility], [place], [address], 11/14/2024 11:04:12 11/14/19 25 11/13/2024 RPR SCREE N, REFLE X TITER /CONF IRMAT ION RPR qualitative Nonrea ctive nonrea ctive Not Available [facility] (Lab) [address] [place], [address], 11/14/2024 11:04:13 01/04/20 25 01/03/2025 CULTU RE: [...] Resul ting Lab: [facility] [address] [facility] [address] Tel: CULTU RE ----- ----- ----- --- No Group B strep isola anatoly at 2 days (vane ctive broth enhan cemen t) Not Available [facility] (Lab) [address] [facility], [place], [address], 01/06/2025 16:53:10 10/10/19 25 10/09/2024 imagi ng/di agnos tic resul t No observ ation record ed. [place] [address] [place], [address], 10/09/2024 19:08:36 10/10/19 25 10/09/2024 imagi ng/di agnos tic resul t No observ ation record ed. [address], [address], 10/13/2024 16:52:21 10/31/19 25 10/30/2024 US, obste tric, follo w-up No observ ation record ed. [id number] [place], [address], 11/01/2024 11:10:19 10/31/19 25 10/30/2024 US, obste tric, follo w-up No observ ation record ed. [email or web address], [place], [address], 11/02/2024 14:34:18 11/28/19 25 11/27/2024 US, obste tric, follo w-up No observ ation record ed. [email or web address] [facility], [place], [address], 12/04/2024 17:07:21 11/28/19 25 11/27/2024 US, obste tric, follo w-up No observ ation record ed. [email or web address], [place], [address], 12/03/2024 12:50:17 12/07/19 25 12/06/2024 US, obste tric, follo w-up No observ ation record ed. [email or web address], [place], [address], 12/06/2024 16:17:23 12/24/19 25 12/23/2024 US, obste tric, follo w-up No observ ation record ed. [address], [place], [address], 01/06/2025 15:29:55 12/31/19 25 12/30/2024 US, obste tric, follo w-up No observ ation record ed. [address], [place], [address], 01/03/2025 15:28:08 Result Notes None recorded. Problems Name Problem SNOMED Code Status Onset Date Resolution Date Notes Provider Name and Address Organization Details Recorded Time Body mass index 40+ - severely obese 530474832 Completed Mai barrow [facility] 15:25:04 Pregnanc y 46517615 Completed 202401/17/2025 Mai barrow [facility] 16:20:16 Diabetes mellitus 76283700 Completed 2024 Toujeo 100 units, humalog / , metformi n 1000 BID 12/27 mfm monitori ng sugars nst 32wks Level II [facility] 11/27/24 Antenata l testing schedule d [facility] to start 12/05/24 2xwkly recommen ded Schedu led [facility] 2x wkly NSTs , MALI and serial growth us recommen d delivery [address] [facility] 5 18:17:18 Type 2 diabetes mellitus 36242789 Active 2024 Lianet Goins [facility] 5 09:57:33 Gestatio nal diabetes mellitus class A2 26502071 Active 2024 insulin will need nst 32wks Lianet Goins [facility] 5 09:58:02 Diabetes mellitus 94907100 Active 2024 Toujeo 100 units, humalog 40/66/86 , metformi n 1000 BID 12/27 mfm monitori ng sugars nst 32wks Level II us [facility] 11/27/24 Antenata l testing schedule d [facility] to start 12/05/24 2xwkly recommen ded Schedu led [facility] 2x wkly NSTs , MALI and serial growth us recommen d delivery 37 [address] [facility] 5 18:17:19 Problem Notes None recorded. Procedures Surgical History Date Name Laterality Status Provider Name and Address Organization Details Recorded Time 5 Caesarean Section completed [facility] 01/17/2025 16:21:13 5 Date of Last Pap Smear completed [facility] 07/31/2024 15:34:14 Imaging Results [...] Available [employer] Pen Needle 32 gauge x 5/32 USE 4 PEN NEEDLES PER DAY WITH [...] Available Not Available No t Available Vitals None Recorded Social History Question Answer Notes LastModified by Organizat ion Details LastModified Time Tobacco Smoking Status Never Smoker Mai Dias [facility], [facility] 05/29/2024 17:17:30 Do You Have An Advance Directive? No [email or web address] Information n ot available 11/13/2024 If You Are , What Was Your Level Of Alcohol Consumption Prior To ? Occasional [email or web address] Information not available 08/21/2024 Are You Blind [...] Or The Highest Degree You Have Received? [id number] Information not available 05/29/2024 Are There Any [...] is your level of alcohol consumption? None [email or web address] Information not available 08/21/2024 Are you currently employed? Yes Information not available 05/29/2024 Are you able to walk independently without assistance or assistive devices? [email or web address] Information not available 05/29/2024 Are you able to care for yourself independently? 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 No Information not available 05/29/2024 What is your exercise level? None Information not available 05/29/2024 Mental Status Question Answer Note LastModified by Organization D etails LastModified Time Do you feel stressed (tense, restless, nervous, or anxious, or unable to sleep at night)? [id number] Information not available 05/29/2024 Family History Relationship [...] ICD10 Code Diagnosis IMO Codes Diagnosis Note [id number] Shira Ruiz [place] [address],[place] [address] 12/11/2024 13:50:52 12/11/2024 15:31:34 Gestation period, 33 weeks 72755904 Z3A.33 [id number] [id number] Shira Ruiz [facility] [address],[place] [address] 12/25/2024 15:56:11 12/25/2024 16:18:29 Gestation period, 35 weeks 13981241 Z3A.35 [id number] Shira Ruiz [place] [address],[place] [address] 01/03/2025 16:21:45 01/03/2025 16:41:53 Gestation period, 36 weeks 91834914 Z3A.36 [id number] [id number] [facility] [address],[place] [address] 01/08/2025 15:51:20 01/08/2025 16:21:17 Gestation period, 37 weeks 80064446 Z3A.37 [id number] Shira Ruiz [facility] [address],[place] [address] 01/10/2025 08:50:03 01/10/2025 09:41:24 Health Concerns Section Related Observation LastModified by Organization Detai ls LastModified Time None Recorded Concern Status LastModified by Organization Details LastModified Time None Recorded Payers Encounter Date Sequence Insurance Name Policy Number Policy Laird Covered Member ID Laird Member ID Guarantor Name 01/10/2025 1 [facility] - DOS ON OR AFTER 20 (MEDICAID REPLACEMENT - HMO) Fannie Martin [id number] Fannie Martin OBGyn Episode Ob Episode Information Episode Created Date Number of Fetuses Patient Bloodtype Patient rh Status Prepregnancy Weight lbs Domestic Partner Domestic Partner Phone Father Name Ice Cream Maker Status 08/01/19 25 1 O Positive 239 Bubba CLOSED Fetus Data First Name Last Name Admitted to NICU Weight (g) Sex Living Outcome Pediatric Complications Fetus ID Race Codes Race Delivery Type Lylah false [phone] F true Full Term [id number] Primary Problems Problem Notes Problem Name Start Date End Date Resolution Snomed Code Not e Diabetes mellitus 08/21/2024 [id number] T oujeo 100 units, humalog , metformin 1000 BID 12/27 mfm monitoring sugars nst 32wksLevel II us [facility] 11/27/24Antenatal testing scheduled [facility] to start 12/05/24 2xwkly recommended Scheduled [facility] 2x wkly NSTs , MALI and serial growth usrecommend delivery 37 Body mass index 40+ - severely obese 026727342 Denis Calculation Initial Denis Date Initial Exam [...] Type Weight in lbs Pre/Post Dialysis Refused 241.32407765020 BP Diastolic BP Location Tested BP Systolic [...] Weight in lbs Pre/Post Dialysis Refused Weight 238.618966814097 BP Diastolic BP Location Tested BP Systolic BP Type 75 112 Fetus Heart Rate Present A 137 Present Fetus Movement A No Comments Patient states that [facility] is m onitoring blood sugars. Patient states that is having some discharge. 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 saw [facility] yesterday, doing well +FM f/u 4 weeks here in office, precautions and education Flowsheet Date 10/16/2024 Breen Score Blood Edema Fundus Height Fundus Units Glucose Ketones Leukocytes Nitrite Labor Signs Protein Cervic Dilation Cervic Effacement Cervic Station Type Weight in lbs Pre/Post Dialysis Refused Weight 240.383449863471 BP Diastolic BP Location Tested BP Systolic BP Type 74 L arm 110 sitting Fetus Heart Rate Present Fetus Movement A Yes Comments doing well sees [facility] soon for US, texting bs to them, +FM, plan 4 week f/u here, education and precautions Flowsheet Date 11/13/2024 Breen Score Blood Edema Fundus Height Fundus Units Glucose Ketones Leukocytes Nitrite Labor Signs Protein Cervic Dilation Cervic Effacement Cervic Station Type Weight in lbs Pre/Post Dialysis Refused Weight 244.063700423153 BP Diastolic BP Location Tested BP Systolic BP Type 85 126 Fetus Heart Rate Present Fetus Movement A Yes Comments +FM, doing well seeing [facility] f or testing, bs logs at [facility], [place] for tdap, precautions and educations f/u 2 weeks Flowsheet Date 11/27/2024 Breen Score Blood Edema Fundus Height Fundus Units Glucose Ketones Leukocytes Nitrite Labor Signs Protein Cervic Dilation Cervic Effacement Cervic Station Type Weight in lbs Pre/Post Dialysis Refused Weight 247.082671159923 BP Diastolic BP Location Tested BP Systolic BP Type 95 L arm 143 sitting Fetus Heart Rate Present Fetus Movement A Yes Comments testing at [facility], managing bs, doing well +FM, call next time for preadmission,reviewed kick counts f/u 2 weeks Flowsheet Date 12/11/2024 Breen Score Blood Edema Fundus Height Fundus Units Glucose Ketones Leukocytes Nitrite Labor Signs Protein Cervic Dilation Cervic Effacement Cervic Station Type Weight in lbs Pre/Post Dialysis Refused Weight 249.719735168745 BP Diastolic BP Location Tested BP Systolic BP Type 83 L arm 134 sitting Fetus Heart Rate Present Fetus Movement A Yes Comments +FM. seeing [facility] for nst an d us plan iol around 39 weeks, education and precautions, vtx by us at [facility], f/u here in 2 weeks, call [place] for preadmission Flowsheet Date 12/25/2024 Breen Score Blood Edema Fundus Height Fundus Units Glucose Ketones Leukocytes Nitrite Labor Signs Protein Cervic Dilation Cervic Effacement Cervic Station Type Weight in lbs Pre/Post Dialysis Refused Weight 252.585117311093 BP Diastolic BP Location Tested BP Systolic BP Type 82 L arm 115 sitting Fetus Heart Rate Present A 138 Present Fetus Movement A Yes Comments +FM seeing [facility] monday , glaser s been increasing insulin, fastings still elevated, gbs next week, preadmit scheduled.precautions and education, f/u one week Flowsheet Date 01/03/2025 Breen Score Blood Edema Fundus Height Fundus Units Glucose Ketones Leukocytes Nitrite Labor Signs Protein Cervic Dilation Cervic Effacement Cervic Station Type Weight in lbs Pre/Post Dialysis Refused Weight 256.020150842156 BP Diastolic BP Location Tested BP Systolic [...] Weight in lbs Pre/Post Dialysis Refused Weight 256.147459941500 BP Diastolic BP Location Tested BP Systolic [...] Weight in lbs Pre/Post Dialysis Refused Weight 246.399506265777 BP Diastolic BP Location Tested BP Systolic [...]
--- OUTSIDE RECORDS SUMMARY | 2025-03-04 03:04 | XMS_ITS | Continuity of Care Document ---
Author Organization [facility] Address [address] [place] [address] Assessment Encounter Date Assessment Date Assessment LastModified by Organization Details LastModified Time 12/25/2024 12/25/2024 Patient is _35__weeks . Discussed plan. Not available 12/25/2024 16:18:05 Plan of Treatment Reminders Order Date Submit [...] urine Amphetamines : negati ve Not Available [facility] [address], [place], [address], 09/18/2024 19:45:34 09/19/19 25 09/18/2024 drug scree n, urine Cannabinoids : negati ve Not Available [facility] [address], [place], [address], 09/18/2024 19:45:34 09/19/19 25 09/18/2024 drug scree n, urine Cocaine: negati ve Not Available [facility] [address], [place], [address], 09/18/2024 19:45:34 09/19/19 25 09/18/2024 drug scree n, urine Opiates: negati ve Not Available [facility] [address], [place], [address], 09/18/2024 19:45:34 09/19/19 25 09/18/2024 drug scree n, urine Phenocyclidi ne: negati ve Not Available [facility] [address], [place], [address], 09/18/2024 19:45:34 09/19/19 25 09/18/2024 drug scree n, urine Barbiturates : negati ve Not Available [facility] [address], [place], [address], 09/18/2024 19:45:34 09/19/19 25 09/18/2024 drug scree n, urine Benzodiazepi magnolia: negati ve Not Available [facility] [address], [place], [address], 09/18/2024 19:45:34 09/19/19 25 09/18/2024 drug scree n, urine Ethanol: negati ve Not Available [facility] [address], [place], [address], 09/18/2024 19:45:34 09/19/19 25 09/18/2024 drug scree n, urine Hallucinogen s: negati ve Not Available [facility] [address], [place], [address], 09/18/2024 19:45:34 09/19/19 25 09/18/2024 drug scree n, urine Inhalants: negati ve Not Available [facility] [address], [place], [address], 09/18/2024 19:45:34 09/19/19 25 09/18/2024 drug scree n, urine Anabolic Steroids: negati ve Not Available [facility] [address], [place], [address], 09/18/2024 19:45:34 09/19/19 25 09/18/2024 drug scree n, urine Other: negati ve Not Available [facility] [address], [place], [address], 09/18/2024 19:45:34 09/20/19 25 09/19/2024 CT/GC AND TRICH OMONA S VAGIN MATTHEW (RRNA ), URINE chlamydia trachomatis, PCR Negati ve negati ve Not Available [facility] (Lab) [address] [facility], [place], [address], 09/20/2024 22:39:42 09/20/19 25 09/19/2024 CT/GC AND TRICH OMONA S VAGIN MATTHEW (RRNA ), URINE neisseria gonorrhoeae, PCR Negati ve negati ve Not Available [facility] (Lab) [address] [facility], [place], [address], 09/20/2024 22:39:42 09/20/19 25 09/19/2024 CT/GC AND TRICH OMONA S VAGIN MATTHEW (RRNA ), URINE trichomonas vaginalis ribosomal RNA (rrna) Negati ve negati ve Not Available [facility] (Lab) [address] [place], [address], 09/20/2024 22:39:42 09/20/19 25 09/19/2024 CULTU RE: URINE result report SEE RESULT S BELOW Test: Cultu re: Urine Speci men Sourc e: Urine - Clean Catch Speci men Type: Urine Speci men Date: 825 Resul t Date: 2136 Resul t Statu s: Final resul t Abnor mal: No Resul ting Lab: [facility] [address] [facility] [address] Tel: [phone] CULTU RE ----- ----- ----- --- No growt h in 1 day (dete ction level of 10,00 0 colon ies / ml.) Not Available [facility] (Lab) [address] [facility], [place], [address], 09/20/2024 22:39:42 11/14/1911/13/2024 HEMAT OCRIT (HCT) HCT 37.9 % (based on docume nted legal sex) 34.0-4 5.0 Not Available [facility] (Lab) [address] [facility], [place], [address], 11/14/2024 11:04:11 11/14/19 25 11/13/2024 HEMOG LOBIN (HGB) HGB 12.5 g/dL (based on docume nted legal sex) 11.6-1 5.4 Not Available [facility] (Lab) [address] [facility], [place], [address], 11/14/2024 11:04:12 11/14/19 25 11/13/2024 HIV 1/2 ANTIG EN/AN TIBOD Y, REFLE X CONFI RMATI ON HIV antigen/anti body Nonrea ctive nonrea ctive HIV-1 antig en and HIV-1 /HIV- 2 antib odies were not detec anatoly. No labor atory evide nce of HIV infec tion. Not Available [facility] (Lab) [address] [facility], [place], [address], 11/14/2024 11:04:12 11/14/19 25 11/13/2024 RPR SCREE N, REFLE X TITER /CONF IRMAT ION RPR qualitative Nonrea ctive nonrea ctive Not Available [facility] (Lab) [address] [facility], [place], [address], 11/14/2024 11:04:13 10/10/19 25 10/09/2024 imagi ng/di agnos tic resul t No observ ation record ed. [facility] [place] [place] [id number], [place], [address], 10/09/2024 19:08:36 10/10/19 25 10/09/2024 imagi ng/tucker pitt tic resul t No observ ation record ed. [place] [id number], [place], [address], 10/13/2024 16:52:21 10/31/19 25 10/30/2024 US, obste tric, follo w-up No observ ation record ed. [email or web address] [facility] [place] [id number], [place], [address], 11/01/2024 11:10:19 10/31/19 25 10/30/2024 US, obste tric, follo w-up No observ ation record ed. [email or web address] [address], [place], [address], 11/02/2024 14:34:18 11/28/19 25 11/27/2024 US, obste tric, follo w-up No observ ation record ed. [facility] [place] [id number], [place], [address], 12/04/2024 17:07:21 11/28/19 25 11/27/2024 US, obste tric, follo w-up No observ ation record ed. [email or web address] [address], [place], [address], 12/03/2024 12:50:17 12/07/19 25 12/06/2024 US, obste tric, follo w-up No observ ation record ed. [email or web address], [address], 12/06/2024 16:17:23 12/24/19 25 12/23/2024 US, obste tric, follo w-up No observ ation record ed. [email or web address] [facility] [address], [place], [address], 01/06/2025 15:29:55 12/31/1912/30/2024 US, obste tric, follo w-up No observ ation record ed. [email or web address] [facility] [address], [place], [address], 01/03/2025 15:28:08 Result Notes None recorded. Problems Name Problem SNOMED Code Status Onset Date Resolution Date Notes Provider Name and Address Organization Details Recorded Time Body mass index 40+ - severely obese 382942177 Completed Mai barrow [facility] 5 15:25:04 Pregnanc y 94013584 Completed 202401/17/2025 Mai barrow [facility] 5 16:20:16 Diabetes mellitus 93263357 Completed 2024 Toujeo 100 units, humalog 40/66/86 , metformi n 1000 BID 12/27 mfm monitori ng sugars nst 32wks Level II [facility] 11/27/24 Antenata l testing schedule [facility] to start 12/05/24 2xwkly recommen ded [facility] 2x wkly NSTs , MALI and serial growth us recommen d delivery 37 Elizabethsamanta barrow [facility] 5 18:17:18 Type 2 diabetes mellitus 43326481 Active 2024 Lianet barrow [facility] 5 09:57:33 Gestatio nal diabetes mellitus class A2 38038328 Active 2024 insulin will need nst 32wks Lianet barrow [facility] 5 09:58:02 Diabetes mellitus 57162407 Active 2024 Toujeo 100 units, humalog 40/66/86 , metformi n 1000 BID 12/27 mfm monitori ng sugars nst 32wks Level II us [facility] 11/27/24 Antenata l testing schedule d [facility] to start 12/05/24 2xwkly recommen ded [facility] 2x wkly NSTs , MALI and serial growth us recommen d delivery 37 Elizabeth Wade null, [facility] 5 18:17:19 Problem Notes None recorded. Procedures Surgical History Date Name Laterality Status Provider Name and Address Organization Details Recorded Time 5 Caesarean Section completed [facility] 01/17/2025 16:21:13 5 Date of Last Pap Smear completed [facility] 07/31/2024 15:34:14 Imaging Results None recorded. [...] Available [employer] Pen Needle 32 gauge x USE 4 PEN NEEDLES PER DAY WITH [...] Updated DateTime 12/25/2024 157.48 cm 46.1 kg/m2 281795.28 g 115/82 mm[Hg] Tawnya Gross [facility] 12/25/2024 16:06:47 Social History Question Answer Notes LastModified by Organizat ion Details LastModified Time Tobacco Smoking Status Never Smoker Mai barrow, [facility] 05/29/2024 17:17:30 Do You Have An Advance Directive? No [email or web address] Information n ot available 11/13/2024 If You Are , What Was Your Level Of Alcohol Consumption Prior To ? Occasional [email or web address] Information not available 08/21/2024 Are You Blind [...] Or The Highest Degree You Have Received? [id number] Information not available 05/29/2024 Are There Any [...] Has Tobacco Cessation Counseling Been Provided? No [email or web address] Information not available 11/13/2024 Do You Have Difficulty Walking Or Climbing Stairs? No Information not available 05/29/2024 Sex: Female Functional Status Question Answer Note LastModified by Organizat ion Details LastModified Time Do you use any illicit or recreational drugs? No Information not available 05/29/2024 Do you or have you ever used any other forms of tobacco or nicotine? No [email or web address] Information not available 11/13/2024 What is your level of alcohol consumption? None [email or web address] Information not available 08/21/2024 Are you currently employed? Yes Information not available 05/29/2024 Are you able to walk independently without assistance or assistive devices? [email or web address] Information not available 05/29/2024 Are you able to care for yourself independently? 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 No Information not available 05/29/2024 What is your exercise level? None Information not available 05/29/2024 Mental Status Question Answer Note LastModified by Organization D etails LastModified Time Do you feel stressed (tense, restless, nervous, or anxious, or unable to sleep at night)? [id number] Information not available 05/29/2024 Family History Relationship [...] ICD10 Code Diagnosis IMO Codes Diagnosis Note [id number] Shira Ruiz CNM [facility] [address] [address] 11/27/2024 12:31:58 11/27/2024 13:55:04 Gestation period, 31 weeks 75073399 Z3A.31 [id number] Shira Ruiz CNM [facility] [address],[facility] [address] 12/11/2024 13:50:52 12/11/2024 15:31:34 Gestation period, 33 weeks 33214954 Z3A.33 1540166 [id number] [facility] [address],[facility] [address] 12/25/2024 15:56:11 12/25/2024 16:18:29 Gestation period, 35 weeks 16891015 Z3A.35 [id number] Health Concerns Section Related Observation LastModified by Organization Detai ls LastModified Time None Recorded Concern Status LastModified by Organization Details LastModified Time None Recorded Payers Encounter Date Sequence Insurance Name Policy Number Policy Laird Covered Member ID Laird Member ID Guarantor Name 12/25/2024 1 [facility] (PP[facility] [id number] Fannie Martin [id number] Fannie Martin 12/25/2024 1 [facility] ON OR AFTER 10/15/20 (MEDICAID REPLACEMENT - HMO) Fannie Martin [id number] Fannie Martin Notes Date Note Type Note Provider Name and Address Organization Details Recorded Time 12/25/2024 text/html Generic HPI TemplateReported by Patient Shira Ruiz CNM [address], [place], [address], [facility] 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 Status 08/01/19 25 1 O Positive 239 Bubba CLOSED Fetus Data First Name Last Name Admitted to NICU Weight (g) Sex Living Outcome Pediatric Complications Fetus ID Race Codes Race Delivery Type Lylah false 3061.74 6 F true Full Term [id number] Primary Problems Problem Notes Problem Name Start Date End Date Resolution Snomed Code Not e Diabetes mellitus 08/21/2024 42218422 T oujeo 100 units, humalog , metformin 1000 BID 12/27 mfm monitoring sugars nst 32wksLevel II us [facility] 11/27/24Antenatal testing scheduled [facility] to start 12/05/24 2xwkly recommended Scheduled [facility] 2x wkly NSTs , MALI and serial growth usrecommend delivery 37 Body mass index 40+ - severely obese [id number] Denis Calculation Initial Denis Date Initial Exam [...] Type Weight in lbs Pre/Post Dialysis Refused 241.59229921719 BP Diastolic BP Location Tested BP Systolic [...] Weight in lbs Pre/Post Dialysis Refused Weight 238.155971246696 BP Diastolic BP Location Tested BP Systolic BP Type 75 112 Fetus Heart Rate Present A 137 Present Fetus Movement A No Comments Patient states that mfm is m onitoring blood sugars. Patient states that is having some discharge. 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 saw [facility] yesterday, doing well +FM f/u 4 weeks here in office, precautions and education Flowsheet Date 10/16/2024 Breen Score Blood Edema Fundus Height Fundus Units Glucose Ketones Leukocytes Nitrite Labor Signs Protein Cervic Dilation Cervic Effacement Cervic Station Type Weight in lbs Pre/Post Dialysis Refused Weight 240.719872873288 BP Diastolic BP Location Tested BP Systolic BP Type 74 L arm 110 sitting Fetus Heart Rate Present Fetus Movement A Yes Comments doing well sees [facility] soon for US, texting bs to them, +FM, plan 4 week f/u here, education and precautions Flowsheet Date 11/13/2024 Breen Score Blood Edema Fundus Height Fundus Units Glucose Ketones Leukocytes Nitrite Labor Signs Protein Cervic Dilation Cervic Effacement Cervic Station Type Weight in lbs Pre/Post Dialysis Refused Weight 244.614597840824 BP Diastolic BP Location Tested BP Systolic BP Type 85 126 Fetus Heart Rate Present Fetus Movement A Yes Comments +FM, doing well seeing [facility] f or testing, bs logs at [facility], ok for tdap, precautions and educations f/u 2 weeks Flowsheet Date 11/27/2024 Breen Score Blood Edema Fundus Height Fundus Units Glucose Ketones Leukocytes Nitrite Labor Signs Protein Cervic Dilation Cervic Effacement Cervic Station Type Weight in lbs Pre/Post Dialysis Refused Weight 247.631047398131 BP Diastolic BP Location Tested BP Systolic BP Type 95 L arm 143 sitting Fetus Heart Rate Present Fetus Movement A Yes Comments testing at [facility], managing bs, doing well +FM, call next time for preadmission,reviewed kick counts f/u 2 weeks Flowsheet Date 12/11/2024 Breen Score Blood Edema Fundus Height Fundus Units Glucose Ketones Leukocytes Nitrite Labor Signs Protein Cervic Dilation Cervic Effacement Cervic Station Type Weight in lbs Pre/Post Dialysis Refused Weight 249.585027837576 BP Diastolic BP Location Tested BP Systolic BP Type 83 L arm 134 sitting Fetus Heart Rate Present Fetus Movement A Yes Comments +FM. seeing [facility] for nst an d us plan iol around 39 weeks, education and precautions, vtx by us at [facility], f/u here in 2 weeks, call [facility] for preadmission Flowsheet Date 12/25/2024 Breen Score Blood Edema Fundus Height Fundus Units Glucose Ketones Leukocytes Nitrite Labor Signs Protein Cervic Dilation Cervic Effacement Cervic Station Type Weight in lbs Pre/Post Dialysis Refused Weight 252.463481083182 BP Diastolic BP Location Tested BP Systolic BP Type 82 L arm 115 sitting Fetus Heart Rate Present A 138 Present Fetus Movement A Yes Comments +FM seeing rafat monday , glaser s been increasing insulin, fastings still elevated, gbs next week, preadmit scheduled.precautions and education, f/u one week Flowsheet Date 01/03/2025 Breen Score Blood Edema Fundus Height Fundus Units Glucose Ketones Leukocytes Nitrite Labor Signs Protein Cervic Dilation Cervic Effacement Cervic Station Type Weight in lbs Pre/Post Dialysis Refused Weight 256.322505455718 BP Diastolic BP Location Tested BP Systolic [...] Weight in lbs Pre/Post Dialysis Refused Weight 256.851850657574 BP Diastolic BP Location Tested BP Systolic [...] Weight in lbs Pre/Post Dialysis Refused Weight 246.772385568966 BP Diastolic BP Location Tested BP Systolic [...]
--- OUTSIDE RECORDS SUMMARY | 2025-03-04 03:04 | XMS_ITS | Continuity of Care Document ---
Author Organization [facility] Address [address] [place] [address] Assessment Encounter Date Assessment Date Assessment LastModified by Organization Details LastModified Time 01/03/2025 01/03/2025 Patient is _36__weeks . Discussed plan. Not available 01/03/2025 16:36:06 Plan of Treatment Reminders Order Date Submit [...] urine Amphetamines : negati ve Not Available [facility] [address], [place], [address], 09/18/2024 19:45:34 09/19/19 25 09/18/2024 drug scree n, urine Cannabinoids : negati ve Not Available [facility] [address], [place], [address], 09/18/2024 19:45:34 09/19/19 25 09/18/2024 drug scree n, urine Cocaine: negati ve Not Available [facility] [address], [place], [address], 09/18/2024 19:45:34 09/19/19 25 09/18/2024 drug scree n, urine Opiates: negati ve Not Available [facility] [address], [place], [address], 09/18/2024 19:45:34 09/19/19 25 09/18/2024 drug scree n, urine Phenocyclidi ne: negati ve Not Available [facility] [address], [place], [address], 09/18/2024 19:45:34 09/19/19 25 09/18/2024 drug scree n, urine Barbiturates : negati ve Not Available [facility] [address], [place], [address], 09/18/2024 19:45:34 09/19/19 25 09/18/2024 drug scree n, urine Benzodiazepi magnolia: negati ve Not Available [facility] [address], [place], [address], 09/18/2024 19:45:34 09/19/19 25 09/18/2024 drug scree n, urine Ethanol: negati ve Not Available [facility] [address], [place], [address], 09/18/2024 19:45:34 09/19/19 25 09/18/2024 drug scree n, urine Hallucinogen s: negati ve Not Available [facility] [address], [place], [address], 09/18/2024 19:45:34 09/19/19 25 09/18/2024 drug scree n, urine Inhalants: negati ve Not Available [facility] [address], [place], [address], 09/18/2024 19:45:34 09/19/19 25 09/18/2024 drug scree n, urine Anabolic Steroids: negati ve Not Available [facility] [address], [place], [address], 09/18/2024 19:45:34 09/19/19 25 09/18/2024 drug scree n, urine Other: negati ve Not Available [facility] [address], [place], [address], 09/18/2024 19:45:34 09/20/19 25 09/19/2024 CT/GC AND TRICH OMONA S VAGIN MATTHEW (RRNA ), URINE chlamydia trachomatis, PCR Negati ve negati ve Not Available [facility] (Lab) [address], [place], [address], 09/20/2024 22:39:42 09/20/19 25 09/19/2024 CT/GC AND TRICH OMONA S VAGIN MATTHEW (RRNA ), URINE neisseria gonorrhoeae, PCR Negati ve negati ve Not Available [facility] (Lab) [address], [place], [address], 09/20/2024 22:39:42 09/20/19 25 09/19/2024 CT/GC AND TRICH OMONA S VAGIN MATTHEW (RRNA ), URINE trichomonas vaginalis ribosomal RNA (rrna) Negati ve negati ve Not Available [facility] (Lab) [address] [place], [address], 09/20/2024 22:39:42 09/20/19 25 09/19/2024 CULTU RE: URINE result report SEE RESULT S BELOW Test: Cultu re: Urine Speci men Sourc e: Urine - Clean Catch Speci men Type: Urine Speci men Date: 825 Resul t Date: 2136 Resul t Statu s: Final resul t Abnor mal: No Resul ting Lab: [facility] [address] [facility] [address] Tel: CULTU RE ----- ----- ----- --- No growt h in 1 day (dete ction level of 10,00 0 colon ies / ml.) Not Available [facility] (Lab) [address], [place], [address], 09/20/2024 22:39:42 11/14/1911/13/2024 HEMAT OCRIT (HCT) HCT 37.9 % (based on docume nted legal sex) 34.0-4 5.0 Not Available [facility] (Lab) [address], [place], [address], 11/14/2024 11:04:11 11/14/19 25 11/13/2024 HEMOG LOBIN (HGB) HGB 12.5 g/dL (based on docume nted legal sex) 11.6-1 5.4 Not Available [facility] (Lab) [address], [place], [address], 11/14/2024 11:04:12 11/14/19 25 11/13/2024 HIV 1/2 ANTIG EN/AN TIBOD Y, REFLE X CONFI RMATI ON HIV antigen/anti body Nonrea ctive nonrea ctive HIV-1 antig en and HIV-1 /HIV- 2 antib odies were not detec anatoly. No labor atory evide nce of HIV infec tion. Not Available [facility] (Lab) [address], [place], [address], 11/14/2024 11:04:12 11/14/19 25 11/13/2024 RPR SCREE N, REFLE X TITER /CONF IRMAT ION RPR qualitative Nonrea ctive nonrea ctive Not Available [facility] (Lab) [address] [place], [address], 11/14/2024 11:04:13 01/04/20 25 01/03/2025 CULTU RE: [...] Resul ting Lab: [facility] [address] [facility] [address] Tel: CULTU RE ----- ----- ----- --- No Group B strep isola anatoly at 2 days (vane ctive broth enhan cemen t) Not Available [facility] (Lab) [address], [place], [address], 01/06/2025 16:53:10 10/10/19 25 10/09/2024 imagi ng/di agnos tic resul t No observ ation record ed. [facility] [place] [place], [address], 10/09/2024 19:08:36 10/10/19 25 10/09/2024 imagi ng/di agnos tic resul t No observ ation record ed. [address], [address], 10/13/2024 16:52:21 10/31/1910/30/2024 US, obste tric, follo w-up No observ ation record ed. [email or web address] [place] [address] [place], [address], 11/01/2024 11:10:19 10/31/19 25 10/30/2024 US, obste tric, follo w-up No observ ation record ed. [id number] [place], [address], 11/02/2024 14:34:18 11/28/19 25 11/27/2024 US, obste tric, follo w-up No observ ation record ed. [facility] [address], [place], [address], 12/04/2024 17:07:21 11/28/19 25 11/27/2024 US, obste tric, follo w-up No observ ation record ed. [address], [place], [address], 12/03/2024 12:50:17 12/07/19 25 12/06/2024 US, obste tric, follo w-up No observ ation record ed. [address], [place], [address], 12/06/2024 16:17:23 12/24/19 25 12/23/2024 US, obste tric, follo w-up No observ ation record ed. [address], [place], [address], 01/06/2025 15:29:55 12/31/19 25 12/30/2024 US, obste tric, follo w-up No observ ation record ed. [address], [address], 01/03/2025 15:28:08 Result Notes None recorded. Problems Name Problem SNOMED Code Status Onset Date Resolution Date Notes Provider Name and Address Organization Details Recorded Time Body mass index 40+ - severely obese 166456485 Completed Mai barrow [facility] 15:25:04 Pregnanc y 24616267 Completed 202401/17/[address] [facility] 16:20:16 Diabetes mellitus 22703497 Completed 2024 Toujeo 100 units, humalog 4066/86 , metformi n 1000 BID 12/27 mfm monitori ng sugars nst 32wks Level II us [facility] 11/27/24 Antenata l testing schedule d [facility] to start 12/05/24 2xwkly recommen ded Sche[place] led [facility] 2x wkly NSTs , MALI and serial growth us recommen d delivery [address] [facility] 5 18:17:18 Type 2 diabetes mellitus 87927761 Active 2024 Lianet Goins [facility] 5 09:57:33 Gestatio nal diabetes mellitus class A2 09536995 Active 2024 insulin will need nst 32wks Lianet Goins [facility] 5 09:58:02 Diabetes mellitus 33360914 Active 2024 Toujeo 100 units, humalog 4066/86 , metformi n 1000 BID 12/27 mfm monitori ng sugars nst 32wks Level II us [facility] 11/27/24 Antenata l testing schedule d [facility] to start 12/05/24 2xwkly recommen ded [place] led [facility] 2x wkly NSTs , MALI and serial growth us recommen d delivery [address] [facility], [facility] 5 18:17:19 Problem Notes None recorded. Procedures Surgical History Date Name Laterality Status Provider Name and Address Organization Details Recorded Time 5 Caesarean Section completed [facility] 01/17/2025 16:21:13 5 Date of Last Pap Smear completed [facility] 07/31/2024 15:34:14 Imaging Results None [...] Updated DateTime 01/03/2025 157.48 cm 46.8 kg/m2 155721.65 g 139/86 mm[Hg] Tawnya Gross [facility] 01/03/2025 16:29:34 Social History Question Answer Notes LastModified by Organizat ion Details LastModified Time Tobacco Smoking Status Never Smoker Mai Dias [facility], [facility] 05/29/2024 17:17:30 Do You Have An Advance Directive? No [email or web address] Information n ot available 11/13/2024 If You Are , What Was Your Level Of Alcohol Consumption Prior To ? Occasional [email or web address] Information not available 08/21/2024 Are You Blind [...] Or The Highest Degree You Have Received? [id number] Information not available 05/29/2024 Are There Any [...] Has Tobacco Cessation Counseling Been Provided? No [email or web address] Information not available 11/13/2024 Do You Have Difficulty Walking Or Climbing Stairs? No Information not available 05/29/2024 Sex: Female Functional Status Question Answer Note LastModified by Organizat ion Details LastModified Time Do you use any illicit or recreational drugs? No Information not available 05/29/2024 Do you or have you ever used any other forms of tobacco or nicotine? No [email or web address] Information not available 11/13/2024 What is your level of alcohol consumption? None [email or web address] Information not available 08/21/2024 Are you currently employed? Yes Information not available 05/29/2024 Are you able to walk independently without assistance or assistive devices? [email or web address] Information not available 05/29/2024 Are you able to care for yourself independently? 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 No Information not available 05/29/2024 What is your exercise level? None Information not available 05/29/2024 Mental Status Question Answer Note LastModified by Organization D etails LastModified Time Do you feel stressed (tense, restless, nervous, or anxious, or unable to sleep at night)? [id number] Information not available 05/29/2024 Family History Relationship [...] ICD10 Code Diagnosis IMO Codes Diagnosis Note [id number] [facility] [address],[facility] [place] [address] 12/11/2024 13:50:52 12/11/2024 15:31:34 Gestation period, 33 weeks 48394877 Z3A.33 3306948 684524 [facility] [address],[place] [address] 12/25/2024 15:56:11 12/25/2024 16:18:29 Gestation period, 35 weeks 38990297 Z3A.35 8471407 [id number] Shira Ruiz [facility] [address],[place] [address] 01/03/2025 16:21:45 01/03/2025 16:41:53 Gestation period, 36 weeks 45411109 Z3A.36 [id number] Health Concerns Section Related Observation LastModified by Organization Detai ls LastModified Time None Recorded Concern Status LastModified by Organization Details LastModified Time None Recorded Payers Encounter Date Sequence Insurance Name Policy Number Policy Laird Covered Member ID Laird Member ID Guarantor Name 01/03/2025 1 [employer] [id number] Fannie Martin [id number] Fannie Martin 01/03/2025 1 [facility] - DOS ON OR AFTER 20 (MEDICAID REPLACEMENT - HMO) Fannie Martin [id number] Fannie Martin Notes Date Note Type Note Provider Name and Address Organization Details Recorded Time 01/03/2025 text/html Generic HPI TemplateReported by Patient Shira Ruiz CNM [address], [place], [address], [facility] 01/03/2025 16:36:50 OBGyn Episode Ob Episode Information Episode Created Date Number of Fetuses Patient Bloodtype Patient rh Status Prepregnancy Weight lbs Domestic Partner Domestic Partner Phone Father Name Fan Engine Engineer Status 08/01/19 25 1 O Positive 239 Bubba CLOSED Fetus Data First Name Last Name Admitted to NICU Weight (g) Sex Living Outcome Pediatric Complications Fetus ID Race Codes Race Delivery Type Lylah false 3061.74 [phone] F true Full Term [id number] Primary Problems Problem Notes Problem Name Start Date End Date Resolution Snomed Code Not e Diabetes mellitus 08/21/2024 99877206 T oujeo 100 units, humalog , metformin 1000 BID 12/27 mfm monitoring sugars nst 32wksLevel II us [facility] 11/27/24Antenatal testing scheduled [facility] to start 12/05/24 2xwkly recommended Scheduled [facility] 2x wkly NSTs , MALI and serial growth usrecommend delivery 37 Body mass index 40+ - severely obese [id number] Denis Calculation Initial Denis Date Initial Exam [...] Type Weight in lbs Pre/Post Dialysis Refused 241.09316915190 BP Diastolic BP Location Tested BP Systolic [...] Weight in lbs Pre/Post Dialysis Refused Weight 238.606890230216 BP Diastolic BP Location Tested BP Systolic BP Type 75 112 Fetus Heart Rate Present A 137 Present Fetus Movement A No Comments Patient states that [facility] is m onitoring blood sugars. Patient states that is having some discharge. 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 saw [facility] yesterday, doing well +FM f/u 4 weeks here in office, precautions and education Flowsheet Date 10/16/2024 Breen Score Blood Edema Fundus Height Fundus Units Glucose Ketones Leukocytes Nitrite Labor Signs Protein Cervic Dilation Cervic Effacement Cervic Station Type Weight in lbs Pre/Post Dialysis Refused Weight 240.961933643391 BP Diastolic BP Location Tested BP Systolic BP Type 74 L arm 110 sitting Fetus Heart Rate Present Fetus Movement A Yes Comments doing well sees [facility] soon for US, texting bs to them, +FM, plan 4 week f/u here, education and precautions Flowsheet Date 11/13/2024 Breen Score Blood Edema Fundus Height Fundus Units Glucose Ketones Leukocytes Nitrite Labor Signs Protein Cervic Dilation Cervic Effacement Cervic Station Type Weight in lbs Pre/Post Dialysis Refused Weight 244.486034308046 BP Diastolic BP Location Tested BP Systolic BP Type 85 126 Fetus Heart Rate Present Fetus Movement A Yes Comments +FM, doing well seeing [facility] f or testing, bs logs at [facility], ok for tdap, precautions and educations f/u 2 weeks Flowsheet Date 11/27/2024 Breen Score Blood Edema Fundus Height Fundus Units Glucose Ketones Leukocytes Nitrite Labor Signs Protein Cervic Dilation Cervic Effacement Cervic Station Type Weight in lbs Pre/Post Dialysis Refused Weight 247.070322784396 BP Diastolic BP Location Tested BP Systolic BP Type 95 L arm 143 sitting Fetus Heart Rate Present Fetus Movement A Yes Comments testing at [facility], managing bs, doing well +FM, call next time for preadmission,reviewed kick counts f/u 2 weeks Flowsheet Date 12/11/2024 Breen Score Blood Edema Fundus Height Fundus Units Glucose Ketones Leukocytes Nitrite Labor Signs Protein Cervic Dilation Cervic Effacement Cervic Station Type Weight in lbs Pre/Post Dialysis Refused Weight 249.599998226575 BP Diastolic BP Location Tested BP Systolic BP Type 83 L arm 134 sitting Fetus Heart Rate Present Fetus Movement A Yes Comments +FM. seeing [facility] for nst an d us plan iol around 39 weeks, education and precautions, vtx by us at [facility], f/u here in 2 weeks, call [facility] for preadmission Flowsheet Date 12/25/2024 Breen Score Blood Edema Fundus Height Fundus Units Glucose Ketones Leukocytes Nitrite Labor Signs Protein Cervic Dilation Cervic Effacement Cervic Station Type Weight in lbs Pre/Post Dialysis Refused Weight 252.317647518705 BP Diastolic BP Location Tested BP Systolic BP Type 82 L arm 115 sitting Fetus Heart Rate Present A 138 Present Fetus Movement A Yes Comments +FM seeing [facility] monday , glaser s been increasing insulin, fastings still elevated, gbs next week, preadmit scheduled.precautions and education, f/u one week Flowsheet Date 01/03/2025 Breen Score Blood Edema Fundus Height Fundus Units Glucose Ketones Leukocytes Nitrite Labor Signs Protein Cervic Dilation Cervic Effacement Cervic Station Type Weight in lbs Pre/Post Dialysis Refused Weight 256.093317023848 BP Diastolic BP Location Tested BP Systolic [...] Weight in lbs Pre/Post Dialysis Refused Weight 256.154888234793 BP Diastolic BP Location Tested BP Systolic [...] Weight in lbs Pre/Post Dialysis Refused Weight 246.087275920913 BP Diastolic BP Location Tested BP Systolic [...]
--- OUTSIDE RECORDS SUMMARY | 2025-03-04 03:05 | XMS_ITS | Continuity of Care Document ---
Author Organization [facility] Address [address] [place] [address] Assessment Encounter Date Assessment Date Assessment LastModified by Organization Details LastModified Time 12/11/2024 12/11/2024 Patient is _33_weeks . Discussed plan. Not available 12/11/2024 15:24:52 Plan of Treatment Reminders Order Date Submit [...] urine Amphetamines : negati ve Not Available [facility] [address], [place], [address], 09/18/2024 19:45:34 09/19/19 25 09/18/2024 drug scree n, urine Cannabinoids : negati ve Not Available [facility] [address], [place], [address], 09/18/2024 19:45:34 09/19/19 25 09/18/2024 drug scree n, urine Cocaine: negati ve Not Available [facility] [address], [place], [address], 09/18/2024 19:45:34 09/19/19 25 09/18/2024 drug scree n, urine Opiates: negati ve Not Available [facility] [address], [place], [address], 09/18/2024 19:45:34 09/19/19 25 09/18/2024 drug scree n, urine Phenocyclidi ne: negati ve Not Available [facility] [address], [place], [address], 09/18/2024 19:45:34 09/19/19 25 09/18/2024 drug scree n, urine Barbiturates : negati ve Not Available [facility] [address], [place], [address], 09/18/2024 19:45:34 09/19/19 25 09/18/2024 drug scree n, urine Benzodiazepi magnolia: negati ve Not Available [facility] [address], [place], [address], 09/18/2024 19:45:34 09/19/19 25 09/18/2024 drug scree n, urine Ethanol: negati ve Not Available [facility] [address], [place], [address], 09/18/2024 19:45:34 09/19/19 25 09/18/2024 drug scree n, urine Hallucinogen s: negati ve Not Available [facility] [address], [place], [address], 09/18/2024 19:45:34 09/19/19 25 09/18/2024 drug scree n, urine Inhalants: negati ve Not Available [facility] [address], [place], [address], 09/18/2024 19:45:34 09/19/19 25 09/18/2024 drug scree n, urine Anabolic Steroids: negati ve Not Available [facility] [address], [place], [address], 09/18/2024 19:45:34 09/19/19 25 09/18/2024 drug scree n, urine Other: negati ve Not Available [facility] [address], [place], [address], 09/18/2024 19:45:34 09/20/19 25 09/19/2024 CT/GC AND TRICH OMONA S VAGIN MATTHEW (RRNA ), URINE chlamydia trachomatis, PCR Negati ve negati ve Not Available [facility] (Lab) [address], [place], [address], 09/20/2024 22:39:42 09/20/19 25 09/19/2024 CT/GC AND TRICH OMONA S VAGIN MATTHEW (RRNA ), URINE neisseria gonorrhoeae, PCR Negati ve negati ve Not Available [facility] (Lab) [address], [place], [address], 09/20/2024 22:39:42 09/20/19 25 09/19/2024 CT/GC AND TRICH OMONA S VAGIN MATTHEW (RRNA ), URINE trichomonas vaginalis ribosomal RNA (rrna) Negati ve negati ve Not Available [facility] (Lab) [address] [place], [address], 09/20/2024 22:39:42 09/20/19 25 09/19/2024 CULTU RE: URINE result report SEE RESULT S BELOW Test: Cultu re: Urine Speci men Sourc e: Urine - Clean Catch Speci men Type: Urine Speci men Date: 825 Resul t Date: 2136 Resul t Statu s: Final resul t Abnor mal: No Resul ting Lab: [facility] [address] [facility] [address] Tel: CULTU RE ----- ----- ----- --- No growt h in 1 day (dete ction level of 10,00 0 colon ies / ml.) Not Available [facility] (Lab) [address], [place], [address], 09/20/2024 22:39:42 11/14/1911/13/2024 HEMAT OCRIT (HCT) HCT 37.9 % (based on docume nted legal sex) 34.0-4 5.0 Not Available [facility] (Lab) [address], [place], [address], 11/14/2024 11:04:11 11/14/19 25 11/13/2024 HEMOG LOBIN (HGB) HGB 12.5 g/dL (based on docume nted legal sex) 11.6-1 5.4 Not Available [facility] (Lab) [address], [place], [address], 11/14/2024 11:04:12 11/14/19 25 11/13/2024 HIV 1/2 ANTIG EN/AN TIBOD Y, REFLE X CONFI RMATI ON HIV antigen/anti body Nonrea ctive nonrea ctive HIV-1 antig en and HIV-1 /HIV- 2 antib odies were not detec anatoly. No labor atory evide nce of HIV infec tion. Not Available [facility] (Lab) [address], [place], [address], 11/14/2024 11:04:12 11/14/19 25 11/13/2024 RPR SCREE N, REFLE X TITER /CONF IRMAT ION RPR qualitative Nonrea ctive nonrea ctive Not Available [facility] (Lab) [address], [place], [address], 11/14/2024 11:04:13 10/10/19 25 10/09/2024 imagi ng/di agnos tic resul t No observ ation record ed. [facility] [place] [id number], [place], [address], 10/09/2024 19:08:36 10/10/19 25 10/09/2024 imagi ng/tucker pitt tic resul t No observ ation record ed. [place] [id number] [address], [place], [address], 10/13/2024 16:52:21 10/31/19 25 10/30/2024 US, obste tric, follo w-up No observ ation record ed. [facility] [place] [id number], [place], [address], 11/01/2024 11:10:19 10/31/19 25 10/30/2024 US, obste tric, follo w-up No observ ation record ed. [email or web address] [address], [place], [address], 11/02/2024 14:34:18 11/28/19 25 11/27/2024 US, obste tric, follo w-up No observ ation record ed. [email or web address] [place] [id number] [facility] [address], [place], [address], 12/04/2024 17:07:21 11/28/19 25 11/27/2024 US, obste tric, follo w-up No observ ation record ed. [email or web address] [address], [place], [address], 12/03/2024 12:50:17 12/07/19 25 12/06/2024 US, obste tric, follo w-up No observ ation record ed. [email or web address], [address], 12/06/2024 16:17:23 12/24/19 25 12/23/2024 US, obste tric, follo w-up No observ ation record ed. [email or web address] [facility] [address], [place], [address], 01/06/2025 15:29:55 12/31/1912/30/2024 US, obste tric, follo w-up No observ ation record ed. [email or web address] [facility] [address], [place], [address], 01/03/2025 15:28:08 Result Notes None recorded. Problems Name Problem SNOMED Code Status Onset Date Resolution Date Notes Provider Name and Address Organization Details Recorded Time Body mass index 40+ - severely obese 781360773 Completed Mai barrow [facility] 5 15:25:04 Pregnanc y 82394129 Completed 202401/17/2025 Mai barrow [facility] 5 16:20:16 Diabetes mellitus 09033043 Completed 2024 Toujeo 100 units, humalog / , metformi n 1000 BID 12/27 mfm monitori ng sugars nst 32wks Level II [facility] 11/27/24 Antenata l testing schedule d [facility] to start 12/05/24 2xwkly recommen ded [place] led [facility] 2x wkly NSTs , MALI and serial growth us recommen d delivery 37 Elizabeth barrow [facility] 5 18:17:18 Type 2 diabetes mellitus 68834615 Active 2024 Lianet barrow [facility] 5 09:57:33 Gestatio nal diabetes mellitus class A2 18392473 Active 2024 insulin will need nst 32wks Lianet barrow [facility] 5 09:58:02 Diabetes mellitus 06310598 Active 2024 Toujeo 100 units, humalog /86 , metformi n 1000 BID 12/27 mfm monitori ng sugars nst 32wks Level II us [facility] 11/27/24 Antenata l testing schedule d [facility] to start 12/05/24 2xwkly recommen ded [place] led [facility] 2x wkly NSTs , MALI and serial growth us recommen d delivery 37 Elizabeth Wade null, [facility] 5 18:17:19 Problem Notes None recorded. Procedures Surgical History Date Name Laterality Status Provider Name and Address Organization Details Recorded Time 5 Caesarean Section completed [facility] 01/17/2025 16:21:13 5 Date of Last Pap Smear completed [facility] 07/31/2024 15:34:14 Imaging Results [...] and Address Organization Details Last Updated DateTime 12/11/2024 157.48 cm 45.5 kg/m2 635111.5 g 134/83 mm[Hg] Tawnya Gross [facility] 12/11/2024 14:06:55 Social History Question Answer Notes LastModified by Organizat ion Details LastModified Time Tobacco Smoking Status Never Smoker Mai barrow, [facility] 05/29/2024 17:17:30 Do You Have An Advance Directive? No [email or web address] Information n ot available 11/13/2024 If You Are , What Was Your Level Of Alcohol Consumption Prior To ? Occasional [email or web address] Information not available 08/21/2024 Are You Blind [...] Or The Highest Degree You Have Received? [id number] Information not available 05/29/2024 Are There Any [...] other forms of tobacco or nicotine? No [email or web address] Information not available 11/13/2024 What is your level of alcohol consumption? None [email or web address] Information not available 08/21/2024 Are you currently employed? Yes Information not available 05/29/2024 Are you able to walk independently without assistance or assistive devices? [email or web address] Information not available 05/29/2024 Are you able to care for yourself independently? 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 No Information not available 05/29/2024 What is your exercise level? None Information not available 05/29/2024 Mental Status Question Answer Note LastModified by Organization D etails LastModified Time Do you feel stressed (tense, restless, nervous, or anxious, or unable to sleep at night)? [id number] Information not available 05/29/2024 Family History Relationship [...] ICD10 Code Diagnosis IMO Codes Diagnosis Note [id number] Shira Ruiz CNM [facility] [address] [address] 11/13/2024 14:00:59 11/13/2024 14:38:49 Gestation period, 29 weeks 11008740 Z3A.29 3284501 [id number] Shira Ruiz CNM [facility] [address],[facility] [place] [address] 11/27/2024 12:31:58 11/27/2024 13:55:04 Gestation period, 31 weeks 59273945 Z3A.31 1364234 [id number] [facility] [address],[place] [address] 12/11/2024 13:50:52 12/11/2024 15:31:34 Gestation period, 33 weeks 16516852 Z3A.33 [id number] Health Concerns Section Related Observation LastModified by Organization Detai ls LastModified Time None Recorded Concern Status LastModified by Organization Details LastModified Time None Recorded Payers Encounter Date Sequence Insurance Name Policy Number Policy Laird Covered Member ID Laird Member ID Guarantor Name 12/11/2024 1 [facility] (PP[facility] [id number] Fannie Martin [id number] Fannie Martin 12/11/2024 1 [facility] ON OR AFTER 10/15/20 (MEDICAID REPLACEMENT - HMO) Fannie Martin [id number] Fannie Martin Notes Date Note Type Note Provider Name and Address Organization Details Recorded Time 12/11/2024 text/html Generic HPI TemplateReported by Patient Shira Ruiz CNM [address], [place], [address], [facility] 12/11/2024 15:25:07 OBGyn Episode Ob Episode Information Episode Created Date Number of Fetuses Patient Bloodtype Patient rh Status Prepregnancy Weight lbs Domestic Partner Domestic Partner Phone Father Name Gis Specialist Status 08/01/19 25 1 O Positive 239 Bubba CLOSED Fetus Data First Name Last Name Admitted to NICU Weight (g) Sex Living Outcome Pediatric Complications Fetus ID Race Codes Race Delivery Type Ten false 3061.74 6 F true Full Term [id number] Primary Problems Problem Notes Problem Name Start Date End Date Resolution Snomed Code Not e Diabetes mellitus 08/21/2024 59395440 T oujeo 100 units, humalog , metformin 1000 BID 12/27 mfm monitoring sugars nst 32wksLevel II us [facility] 11/27/24Antenatal testing scheduled [facility] to start 12/05/24 2xwkly recommended Scheduled [facility] 2x wkly NSTs , MALI and serial growth usrecommend delivery 37 Body mass index 40+ - severely obese 873900890 Denis Calculation Initial Denis Date Initial Exam [...] Type Weight in lbs Pre/Post Dialysis Refused 241.55754333530 BP Diastolic BP Location Tested BP Systolic [...] Weight in lbs Pre/Post Dialysis Refused Weight 238.215221258474 BP Diastolic BP Location Tested BP Systolic BP Type 75 112 Fetus Heart Rate Present A 137 Present Fetus Movement A No Comments Patient states that mfm is m onitoring blood sugars. Patient states that is having some discharge. 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 saw [facility] yesterday, doing well +FM f/u 4 weeks here in office, precautions and education Flowsheet Date 10/16/2024 Breen Score Blood Edema Fundus Height Fundus Units Glucose Ketones Leukocytes Nitrite Labor Signs Protein Cervic Dilation Cervic Effacement Cervic Station Type Weight in lbs Pre/Post Dialysis Refused Weight 240.041489716678 BP Diastolic BP Location Tested BP Systolic BP Type 74 L arm 110 sitting Fetus Heart Rate Present Fetus Movement A Yes Comments doing well sees [employer] [facility] [employer] soon for US, texting bs to them, +FM, plan 4 week f/u here, education and precautions Flowsheet Date 11/13/2024 Breen Score Blood Edema Fundus Height Fundus Units Glucose Ketones Leukocytes Nitrite Labor Signs Protein Cervic Dilation Cervic Effacement Cervic Station Type Weight in lbs Pre/Post Dialysis Refused Weight 244.681377539946 BP Diastolic BP Location Tested BP Systolic BP Type 85 126 Fetus Heart Rate Present Fetus Movement A Yes Comments +FM, doing well seeing [facility] f or testing, bs logs at [facility], ok for tdap, precautions and educations f/u 2 weeks Flowsheet Date 11/27/2024 Breen Score Blood Edema Fundus Height Fundus Units Glucose Ketones Leukocytes Nitrite Labor Signs Protein Cervic Dilation Cervic Effacement Cervic Station Type Weight in lbs Pre/Post Dialysis Refused Weight 247.344775003731 BP Diastolic BP Location Tested BP Systolic BP Type 95 L arm 143 sitting Fetus Heart Rate Present Fetus Movement A Yes Comments testing at [facility], managing bs, doing well +FM, call next time for preadmission,reviewed kick counts f/u 2 weeks Flowsheet Date 12/11/2024 Breen Score Blood Edema Fundus Height Fundus Units Glucose Ketones Leukocytes Nitrite Labor Signs Protein Cervic Dilation Cervic Effacement Cervic Station Type Weight in lbs Pre/Post Dialysis Refused Weight 249.739539566988 BP Diastolic BP Location Tested BP Systolic BP Type 83 L arm 134 sitting Fetus Heart Rate Present Fetus Movement A Yes Comments +FM. seeing rafat for nst an d us plan iol around 39 weeks, education and precautions, vtx by us at [facility], f/u here in 2 weeks, call [facility]iana for preadmission Flowsheet Date 12/25/2024 Breen Score Blood Edema Fundus Height Fundus Units Glucose Ketones Leukocytes Nitrite Labor Signs Protein Cervic Dilation Cervic Effacement Cervic Station Type Weight in lbs Pre/Post Dialysis Refused Weight 252.154350056397 BP Diastolic BP Location Tested BP Systolic [...] Weight in lbs Pre/Post Dialysis Refused Weight 256.259400604499 BP Diastolic BP Location Tested BP Systolic [...] Weight in lbs Pre/Post Dialysis Refused Weight 256.646510900672 BP Diastolic BP Location Tested BP Systolic [...] Weight in lbs Pre/Post Dialysis Refused Weight 246.878115465057 BP Diastolic BP Location Tested BP Systolic [...]
[2025-03-04 12:47] LABS: Alanine Aminotransferase 53 U/L (6-35); Albumin Level 4.3 g/dL (3.5-5.1); Alkaline Phosphatase 109 U/L (38-126); Amylase 52 U/L (30-110); Aspartate Amino Transferase 30 U/L (14-36); Bilirubin,Total 0.7 mg/dL (0.2-1.3); Total Protein 7.7 g/dL (6.3-8.2)
--- NOTE | 2025-03-04 12:58 | WPDHPUPDATE1 ---
History and Physical Update Update Date/Time: 03/04/25 12:58 History and Physical has been reviewed, including an updated exam of the patient. There are NO changes in the patient's condition. Risks, benefits, and alternatives have been discussed and questions answered. Patient agrees to proceed with procedure. Pt discharged from the hospital within last 2 weeks with cholelithiasis and likely passed a CBD stone. She elected to have outpatient interval lap rojas and presents today for that procedure. Risks, benefits, indications, and expected outcomes were discussed with the patient and/or family members. Specific risks to include bleeding and possible need for blood transfusion, infection, bile leak, injury to other organs, common bile duct injury, and conversion to open cholecystectomy has been discussed. I have answered all their questions and they agreed to proceed with surgery as outlined above.
[2025-03-04] MEDS: KETOROLAC 15 MG/ML VIAL (*BKC) IV PUSH ×2 (13:00→14:32)
[2025-03-04] MEDS: ACETAMINOPHEN 500 MG TABLET 1000 MG PO (13:00)
[2025-03-04] MEDS: LACTATED RINGERS 1,000 ML 30 ML IV CONT ×2 (13:00→15:55)
--- NOTE | 2025-03-04 13:23 | WPDANESEPPF ---
Anes - Initial Pre Proc Eval Procedure: Operation Date: 03/04/25 13:30 Proposed Procedures p Laparoscopic Cholecystectomy, Possible Open - Geovanny Kinney MD Date/Time: 03/04/25 13:23 Surgeon: Geovanny Kinney MD Pre Op Diagnosis: chronic cholelithiasis, biliary acute pancreatitis Patient Data Age: 29 Gender: F Height: 1.57 m Weight: 105.6 kg Last Vital Signs Temp 36.0 C L 03/04/25 13:00 Pulse 85 03/04/25 13:00 Resp 16 03/04/25 13:00 BP 122/76 03/04/25 13:00 Pulse Ox 98 03/04/25 13:00 O2 Del Method Room Air 03/04/25 13:00 Allergies Allergy/AdvReac Type Severity Reaction Status Date / Time No Known Allergies Allergy Verified 03/04/25 13:06 Home Medications ?Medication ?Instructions ?Recorded ?Confirmed ?Type vit no.95-ferrous 1 tablet PO DAILY 12/28/24 03/04/25 History fumarate 28 mg-folic acid 800 mcg tablet () Laboratory Tests 03/04/25 12:26 Total Bilirubin 0.7 mg/dL (0.2-1.3) Direct Bilirubin 0.0 mg/dL (0-0.3) AST 30 U/L (14-36) ALT 53 H U/L (6-35) Alkaline Phosphatase 109 U/L (38-126) Total Protein 7.7 g/dL (6.3-8.2) Albumin 4.3 g/dL (3.5-5.1) Amylase 52 U/L (30-110) Patient hx anesthesia problems: none Family hx anesthesia problems: none Results Review: All pre-operative results and documents have been reviewed as part of the pre-operative evaluation. [facility] Past Medical History Medical History (Updated 03/04/25 @ 13:24 by Harlan Griajlva MD) Morbid obesity Gestational diabetes Surgical History Surgical History (Updated 03/04/25 @ 13:24 by Harlan Grijalva MD) History of ERCP History of section, classical Family History Family History Mother Hypertension Preeclampsia Other Breast cancer Diabetes mellitus Social History Social History Social History: She is lives with her and her 1-month-old daughter. 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 She denies any alcohol or illicit drugs. Her is a durable power contracts attorney for healthcare. Code status: Full code Smoking status: Never smoker Alcohol intake: former Substance use: never Lack of Transportation: No Lack of Food: Never True Current Housing: I Have Housing Concerned About Future Housing: No Difficulty Paying Gas/Electric Bills: No Difficulty Paying for Meds: No Currently Unemployed: No Education: High School Diploma/GED Difficulty w/ Childcare or Family Care: No Living arrangements: with family Spiritual care concerns: No Anes - Eval Final PreProcedure Day of Procedure 03/04/25 13:23 Patient weight: morbidly obese Heart: regular rate and rhythm Lungs: clear to auscultation Airway: Mallampati scale class II Neurological: alert and oriented Last oral intake: >/= 8 hours ASA classification: III Emergent: no Anesthetic plan: proceed Anesthesia type and monitoring: general ETT and standard monitoring Results Review: All pre-operative results and documents have been reviewed as part of the pre-operative evaluation. Informed Consent: The patient's anesthetic plan and its attendant risks and benefits were discussed with the patient/family/POA. Questions were solicited and answers provided to the satisfaction of the patient/family/POA.
[2025-03-04] MEDS: ceFAZolin 2 GM in SODIUM CHLORIDE 0.9% IV 50 ML 100 ML IVPB (13:31)
[2025-03-04] MEDS: LIDO 1%/EPINEPHRINE 1:100,000 50 ML VIAL (14:13)
--- NOTE | 2025-03-04 14:42 | S_PTH ---
PATIENT: Fannie Martin LOC: [facility] U#:[id number] AGE/SX: 29/F ROOM: RE03/04/[address]: Geovanny Kinney MD : 1995 BED: DIS: 03/04/2025 SPEC #: [id number] RECD: 03/05/25 08:04 STATUS: ATILIO VALLE #: [id number] [place]: 03/04/25 14:[address]: Geovanny Kinney DEPT: [facility] Surgical RECD BY: Young Shoemaker ENTERED: 03/05/25 08:05 SP TYPE: Surgical OTHR DR: CHAIN PEGGER PHYSICIAN Tissues: A - Gallbladder Procedures: Hematoxylin and Eosin Stain Gross and Microscopic Level 3
--- NOTE | 2025-03-04 15:10 | W.PM.PROC2 ---
Procedure Note - Detailed Date of Procedure 03/04/25 Pre-op Diagnosis Chronic cholecystitis secondary to cholelithiasis, gallstone pancreatitis Post-op Diagnosis Same Procedure Performed Laparoscopic cholecystectomy Surgeon Geovanny Kinney MD [employer] Analyst Tani CHERRY Anesthesia General Indications Patient is a 29-year-old female who was admitted to the hospital within the last 2 weeks with acute pancreatitis. She was found have gallstones and likely passed a common bile duct stone. Recovered from the acute pancreatitis she was discharged from the hospital as she preferred to schedule a interval laparoscopic cholecystectomy rather than perform the cholecystectomy at the same hospitalization. She presents now for the elective interval laparoscopic cholecystectomy. Findings Patient had a large fatty liver and a very intrahepatic gallbladder. There was minimal thickening of the gallbladder wall but there were couple adhesions of the antrum of the stomach and omentum to the infundibular gallbladder. This was likely due to some very mild acute cholecystitis. Multiple small gallstones were noted in the gallbladder after it was removed. Multiple small gallstones were milked out of the cystic duct back into the infundibular gallbladder prior to clipping the duct. Description of Procedure After informed consent was obtained patient brought to the operating room where she was placed supine position and general endotracheal anesthesia was administered. The abdomen was then prepped and draped usual sterile fashion. A time-out was then performed correctly identifying the patient as well as procedure to be performed. She was given perioperative IV antibiotics. I then entered the abdomen left upper quadrant utilizing a 5mm Optiview port. Once inside the abdomen insufflated to adequate pneumoperitoneum of 15mmHg of CO2. I then placed a 5mm periumbilical trocar port and then looking to the upper portion of the abdomen I then placed a 10mm epigastric trocar port and then 2 more right lateral subcostal 5mm trocar ports all under direct visualization. The patient had a large fatty her right lobe of the liver. The gallbladder was intrahepatic within the right lobe of the liver. A laparoscopic grasper used to hold the gallbladder at the dome and the gallbladder was retracted back towards the right shoulder. A 2nd grasper was then used to hold the gallbladder at the infundibulum. I then proceeded to strip down the adhesions of the antrum of the stomach and omentum to the infundibular gallbladder bluntly. I then proceeded to strip down the visceral peritoneum off of the infundibular gallbladder to identify the cystic duct. The cystic duct was then dissected out circumferentially. Cystic artery was identified and dissected out circumferentially as well. The posterior wall the gallbladder at the infundibulum dissected free of the liver into the critical view was obtained. I then identified the multiple small gallstones within the cystic duct and then I milked the small stones back up into the infundibular gallbladder and then placed a clamp on the infundibulum and cystic duct junction to keep the stones from falling back into the cystic duct. I then placed 2 clips proximally cystic duct and 2 clips distally high on infundibular gallbladder. Cystic duct was then divided Endo Epi. In a similar fashion cystic artery was then clipped and divided as well. The gallbladder was then resected off the liver utilized electrocautery. Once the gallbladder was free from the liver is placed into an Endo-Catch bag and brought out through the epigastric port site. Gallbladder and the multiple small gallstones within were sent to pathology for examination. I then irrigated out the right upper quadrant the abdomen gallbladder fossa copious sterile saline solution hemostasis was good. No evidence of bile leak was seen from the cystic duct stump. I then aspirated the fluid from the right upper quadrant the abdomen from the pelvis. I then removed all the trocar ports under direct visualization all port sites appeared hemostatic. The abdomen was allowed to decompress. The 10mm epigastric trocar port fascial defect was then closed utilizing 0 Vicryl suture at the fascial level. The skin edges in all the port sites were then approximated utilizing a running subcuticular 4 Monocryl suture. The incisions were then cleaned the skin glue sterile dressings were applied. The patient tolerated the procedure well no complications. All sponges, needles, and instrument counts were correct at the end procedure. EBL was _25__cc. The patient was awakened and taken to recovery in stable and satisfactory condition. Implants None Estimated Blood Loss 25 Drains No Packing No Pathology Yes (Gallbladder and gallstones were sent to pathology) Complications No immediate complications Condition Stable Disposition PACU [facility] Billing Surgery - Charge Forward: Surgery Billing
[2025-03-04] MEDS: ONDANSETRON INJ 4 MG/2 ML VIAL IV PUSH (15:17)
[2025-03-04] MEDS: fentaNYL CITRATE INJ (*CRX) 100 MCG/2 ML VIAL 25 MCG IV PUSH ×7 (15:22→15:54)
[2025-03-04] MEDS: oxyCODONE HCL (*CRX) 5 MG TAB IR PO (16:23)
== END 2025-03-04 16:55 | disposition home or self-care (01) ==
PROVIDERS: Visit Provider Surgery
PROC: 0FT44ZZ Resection of Gallbladder, Percutaneous Endoscopic Approach (ICD-10-PCS; CPT 47562; principal; 2025-03-04 13:30)
DX: K80.20 Calculus of gallbladder without cholecystitis without obstruction (principal); K76.0 Fatty (change of) liver, not elsewhere classified; K66.0 Peritoneal adhesions (postprocedural) (postinfection); R74.8 Abnormal levels of other serum enzymes; Z98.890 Other specified postprocedural states; Z80.3 Family history of malignant neoplasm of breast
CPT/HCPCS: 47562; 36415; 80076; 82150; 88304; J0690; A9270; J1100; J1885; J2003; J2004; J2250; J2405; J2704; J3010; J7120